=== PATIENT | female | born 1960 | race Caucasian/White ===

== ENCOUNTER 2018-02-08 14:13 | Emergency (ER) | payer OTHER, MEDICAID, SELFPAY ==
[2018-02-08 14:17] VITALS: BP 132/81; PULSE 78; RESP 15; TEMP 36; O2SAT 100; BMI 21.0
--- NOTE | 2018-02-08 17:24 | PC.NURSE ---
Pt states she was moving things in storage and injured her back. She rested for three days and thought it was getting better. States now she can barely walk without pain. States she tried Ice, Heat, and NSAIDS with no relief. said her friend is an EMT and is concerned that it is her kidney.. States no difficulty with bowels or bladder.
--- NOTE | 2018-02-08 17:44 | ED.BACK ---
HPI - Back Pain/Injury General Chief Complaint: Back Pain/Injury Stated Complaint: back pain Time Seen by Provider: 02/08/18 17:41 Related Data Home Medications Medication Instructions Recorded Confirmed albuterol sulfate [ProAir HFA] 2 puff INHALATION Q4-6H PRN 02/08/18 02/08/18 ibuprofen 200 mg PO PRN PRN 02/08/18 02/08/18 levothyroxine 1 tab PO DAILY 02/08/18 02/08/18 Allergies Allergy/AdvReac Type Severity Reaction Status Date / Time No Known Drug Allergies Allergy Verified 02/08/18 14:17 [facility] Social History Smoking Status: Current every day smoker Exam Initial Vital Signs Initial Vital Signs: Vital Signs Temperature 96.8 F L 02/08/18 14:17 Pulse Rate 78 02/08/18 14:17 Respiratory Rate 15 02/08/18 14:17 Blood Pressure 132/81 02/08/18 14:17 Pulse Oximetry 100 02/08/18 14:17 Course Vital Signs - 8 hr 02/08/18 14:17 Temperature 96.8 F L Pulse Rate 78 Respiratory Rate 15 Blood Pressure 132/81 Pulse Oximetry 100 Discharge Plan Departure Prescriptions: No Action levothyroxine 137 mcg tablet 1 tab PO DAILY RF: 0 albuterol sulfate [ProAir HFA] 90 mcg/actuation HFA aerosol inhaler 2 puff Inhalation Q4-6H PRN (Reason: Shortness Of Breath) RF: 0 ibuprofen 200 mg Tablet 200 mg PO PRN PRN (Reason: PAIN) RF: 0
== END 2018-02-08 19:10 | disposition left against medical advice (07) ==
DX: M54.9 Dorsalgia, unspecified (principal)
CPT/HCPCS: 99281; 99282

== ENCOUNTER → 2018-02-27 14:14 | Outpatient (CLI) | payer OTHER, MEDICAID, SELFPAY ==
--- NOTE | 2018-02-27 | DI.MG.S_ITS ---
BILATERAL DIGITAL SCREENING MAMMOGRAM 3D/2D WITH CAD: 02/27/2018 CLINICAL: Routine screening. Baseline exam. Family history of breast cancer. No prior exams were available for comparison. There are scattered fibroglandular elements in both breasts. Current study was also evaluated with a Computer Aided Detection (CAD) system. There is an asymmetry in the right breast posterior depth lateral region seen on the craniocaudal view only. There is architectural distortion associated with the asymmetry. No other significant masses, calcifications, or other findings are seen in either breast. IMPRESSION: INCOMPLETE: NEEDS ADDITIONAL IMAGING EVALUATION The asymmetry in the right breast is indeterminate. Additional views with possible ultrasound are recommended. This exam was interpreted at Station ID: [id number]. NOTE: For mammograms, a report in lay terms will be sent to the patient. Approximately 15% of breast malignancies will not be visualized mammographically. In the management of a palpable breast mass, a negative mammogram must not discourage biopsy of a clinically suspicious lesion. Electronically Signed By: Suzy longoria/maria dolores:02/27/2018 14:40:39 letter sent: Additional Imaging Needed ACR BI-RADS Category 0: Incomplete 3340F
== END ==
PROVIDERS: PCP Internal Medicine; Visit Provider Family Medicine
DX: Z12.31 Encounter for screening mammogram for malignant neoplasm of breast (principal); Z80.3 Family history of malignant neoplasm of breast
CPT/HCPCS: 77063; 77067

== ENCOUNTER → 2018-03-13 08:59 | Outpatient (CLI) | payer OTHER, MEDICAID, SELFPAY ==
--- NOTE | 2018-03-13 | DI.MG.S_ITS ---
UNILATERAL RIGHT DIGITAL DIAGNOSTIC MAMMOGRAM 3D/2D WITH ADDITIONAL VIEWS: 03/13/2018 CLINICAL: Additional evaluation requested from prior study. Comparison is made to exam dated: 02/27/2018 mammogram - [facility]. There are scattered fibroglandular elements in right breast. The asymmetry in the right breast posterior depth lateral region seen on the craniocaudal view only is not seen in additional views. No other significant masses or calcifications are seen in the breast. IMPRESSION: There is no mammographic evidence of malignancy. A 1 year screening mammogram is recommended. This exam was interpreted at Station ID: [id number]. NOTE: For mammograms, a report in lay terms will be sent to the patient. Approximately 15% of breast malignancies will not be visualized mammographically. In the management of a palpable breast mass, a negative mammogram must not discourage biopsy of a clinically suspicious lesion. Electronically Signed By: Suzy Richard M.D. lk/:03/13/2018 09:40:09 copy to: Tima Jenkins letter sent: Normal Exam ACR BI-RADS Category 2: Benign Finding(s) 3342F
== END ==
PROVIDERS: PCP Internal Medicine; Visit Provider Family Medicine
DX: R92.8 Other abnormal and inconclusive findings on diagnostic imaging of breast (principal)
CPT/HCPCS: 77065; G0279

== ENCOUNTER → 2018-06-14 14:03 | Outpatient (CLI) | payer OTHER, MEDICAID, SELFPAY ==
--- NOTE | 2018-06-15 16:21 | PM.PFT.1 ---
Pulmonary Function Test Referral & Results Date Patient Seen: 06/14/18 Requesting provider: Tima Jenkins Indication: R06.02 Results: The spirometry demonstrates an FVC of 2.69 L which is 85% of predicted. The FEV1 was measured at 1.69 L which is 60% of predicted. The FEV1/FVC ratio was 63 which is 79% of predicted. Following the administration of bronchodilator there was no appreciable change. Lung volumes show an SVC of 2.77 L which is 94% of predicted. The diffusing capacity was measured at 17.49 which is 81% of predicted. No hemoglobin value was provided, so no correction for potential anemia could be made, if appropriate. The maximum voluntary ventilation was reduced Interpretation: This study demonstrates mild to moderate obstructive lung disease without evidence of benefit following bronchodilator There is also minimal reduction in diffusing capacity, suggesting an element of disease at the capillary alveolar level, unless patient is anemic Clinical correlation suggested
== END ==
PROVIDERS: PCP Internal Medicine; Visit Provider Internal Medicine
DX: R06.02 Shortness of breath (principal)
CPT/HCPCS: 94060; 94726; 94729

== ENCOUNTER → 2018-07-26 10:38 | Outpatient (CLI) | payer OTHER, MEDICAID, SELFPAY ==
[2018-07-26 12:31] LABS: Free T4, Direct Thyroxine 1.85 ng/dL (0.78-2.19)
[2018-07-26 12:46] LABS: Thyroid Stimulating Hormone 0.18 uIU/mL (0.47-4.68)
[2018-07-28 16:10] LABS: Triiodothyronine T3 Total 99 ng/dL (76-181)
== END ==
PROVIDERS: PCP Internal Medicine; Visit Provider Internal Medicine
DX: E03.9 Hypothyroidism, unspecified (principal)
CPT/HCPCS: 36415; 84439; 84443; 84480

== ENCOUNTER → 2019-01-10 12:04 | Outpatient (CLI) | payer OTHER, MEDICAID, SELFPAY ==
[2019-01-10 14:04] LABS: Thyroid Stimulating Hormone 2.73 uIU/mL (0.47-4.68)
[2019-01-12 15:52] LABS: Triiodothyronine T3 Total 82 ng/dL (76-181)
== END ==
PROVIDERS: PCP Internal Medicine; Visit Provider Internal Medicine
DX: E03.9 Hypothyroidism, unspecified (principal)
CPT/HCPCS: 36415; 84439; 84443; 84480

== ENCOUNTER → 2019-06-06 11:20 | Outpatient (CLI) | payer OTHER, MEDICAID, SELFPAY ==
--- NOTE | 2019-06-06 | DI.MG.S_ITS ---
BILATERAL DIGITAL SCREENING MAMMOGRAM 3D/2D WITH CAD: 06/06/2019 CLINICAL: Routine screening. Family history of breast cancer. Comparison is made to exams dated: 03/13/2018 mammogram and 02/27/2018 mammogram - [facility]. There are scattered fibroglandular elements in both breasts. Current study was also evaluated with a Computer Aided Detection (CAD) system. No significant masses, calcifications, or other findings are seen in either breast. There has been no significant interval change. IMPRESSION: NEGATIVE There is no mammographic evidence of malignancy. A 1 year screening mammogram is recommended. This exam was interpreted at Station ID: [id number]. NOTE: For mammograms, a report in lay terms will be sent to the patient. Approximately 15% of breast malignancies will not be visualized mammographically. In the management of a palpable breast mass, a negative mammogram must not discourage biopsy of a clinically suspicious lesion. Electronically Signed By: Jonathon claros/maria dolores:06/07/2019 10:58:44 copy to: Tima Jenkins letter sent: Normal Exam ACR BI-RADS Category 1: Negative 3341F
== END ==
PROVIDERS: PCP Internal Medicine; Visit Provider Internal Medicine
DX: Z12.31 Encounter for screening mammogram for malignant neoplasm of breast (principal); Z80.3 Family history of malignant neoplasm of breast; I10 Essential (primary) hypertension; E03.9 Hypothyroidism, unspecified
CPT/HCPCS: 36415; 77063; 77067; 80053; 80061; 84439; 84443; 84480

== ENCOUNTER → 2019-06-06 11:50 | Outpatient (CLI) | payer OTHER, MEDICAID, SELFPAY ==
[2019-06-06 13:38] LABS: Alanine Aminotransferase 16 IU/L (<35); Albumin 4.3 g/dL (3.5-5.0); Albumin Globulin Ratio 1.4 (1.0-2.8); Alkaline Phosphatase 30 U/L (38-126); Aspartate Aminotransferase 23 IU/L (14-36); BUN Creatinine Ratio 22.2 (6-22); Bilirubin Total 0.5 mg/dL (0.2-1.3); Blood Urea Nitrogen 20 mg/dL (7-17); Calcium 9.4 mg/dL (8.4-10.2); Carbon Dioxide 31 mmol/L (22-32); Chloride 102 mmol/L (98-107); Cholesterol 201 mg/dL (140-199); Estimated Glomerular Filt Rate > 60.0 mL/min (>60); Glucose 90 mg/dL (70-100); HDL Cholesterol 75 mg/dL (40-60); HEMOLYSIS < 15 (0-50); LDL Cholesterol Calculated 111 mg/dL (<100); Potassium 5.1 mmol/L (3.4-5.1); Sodium 138 mmol/L (137-145); Total Protein 7.3 g/dL (6.3-8.2); Triglycerides 77 mg/dL (35-150)
[2019-06-06 13:49] LABS: Free T4, Direct Thyroxine 1.42 ng/dL (0.78-2.19)
[2019-06-06 14:03] LABS: Thyroid Stimulating Hormone 9.89 uIU/mL (0.47-4.68)
[2019-06-07 11:32] LABS: Triiodothyronine T3 Total 59 ng/dL (76-181)
== END ==
PROVIDERS: PCP Internal Medicine; Visit Provider Internal Medicine
DX: Z12.31 Encounter for screening mammogram for malignant neoplasm of breast (principal); Z80.3 Family history of malignant neoplasm of breast; I10 Essential (primary) hypertension; E03.9 Hypothyroidism, unspecified
CPT/HCPCS: 36415; 80053; 80061; 84439; 84443; 84480

== ENCOUNTER → 2019-07-18 09:28 | Outpatient (CLI) | payer OTHER, MEDICAID, SELFPAY ==
--- NOTE | 2019-07-18 | DI.US.S_ITS ---
PROCEDURE: US THYROID INDICATIONS: HISTORY OF GOITER TECHNIQUE: Real-time scanning was performed of the thyroid gland, with image documentation. COMPARISON: None. FINDINGS: Right: Atrophy on the right, no nodule found, diminutive right thyroid lobe. Left: Atrophy on the left, no nodule found, diminutive right thyroid lobe. Isthmus: Diminutive IMPRESSION: No goiter as enlargement foun. Rather, the thyroid gland bilaterally is prominently atrophic, diminutive. No nodule present. Dictated by: Alonso Wang M.D. on 07/18/2019 at 16:34 Approved by: Alonso Wang M.D. on 07/18/2019 at 16:35
[2019-07-18 10:53] LABS: Alanine Aminotransferase 18 IU/L (<35); Albumin 4.3 g/dL (3.5-5.0); Albumin Globulin Ratio 1.4 (1.0-2.8); Alkaline Phosphatase 34 U/L (38-126); Aspartate Aminotransferase 24 IU/L (14-36); BUN Creatinine Ratio 23.8 (6-22); Bilirubin Total 0.2 mg/dL (0.2-1.3); Blood Urea Nitrogen 19 mg/dL (7-17); Calcium 9.3 mg/dL (8.4-10.2); Carbon Dioxide 28 mmol/L (22-32); Chloride 99 mmol/L (98-107); Estimated Glomerular Filt Rate > 60.0 mL/min (>60); Glucose 122 mg/dL (70-100); HEMOLYSIS < 15 (0-50); Sodium 136 mmol/L (137-145); Total Protein 7.3 g/dL (6.3-8.2)
[2019-07-18 11:00] LABS: Free T4, Direct Thyroxine 1.74 ng/dL (0.78-2.19)
[2019-07-18 11:14] LABS: Thyroid Stimulating Hormone 2.33 uIU/mL (0.47-4.68)
[2019-07-20 14:35] LABS: Triiodothyronine T3 Total 86 ng/dL (76-181)
== END ==
PROVIDERS: PCP Internal Medicine; Referring Provider Internal Medicine; Visit Provider Internal Medicine
DX: E04.2 Nontoxic multinodular goiter (principal); E03.9 Hypothyroidism, unspecified
CPT/HCPCS: 36415; 76536; 80053; 84439; 84443; 84480

== ENCOUNTER → 2019-07-27 14:32 | Outpatient (CLI) | payer OTHER, MEDICAID, SELFPAY ==
--- NOTE | 2019-07-27 16:02 | PM.TREADMILL ---
Cardiac Stress Test Report Referral & Results Date Patient Seen: 07/27/19 Time Patient Seen: 16:02 Requesting provider: Tima Jenkins Indication: shortness of breath Rest ECG: normal sinus rhythm Procedure Note: Standard Federico protocol, 7:13, 7.2 METS Good exercise capacity, MARY ANN -1% Normal hemodynamic response to exercise No chest pain or anginal symptoms Non specific ST changes to exercise; no ectopy Impression: Nonconclusive exersice stress test Please note: Actual ECG tracings can be found in the PACS system.
[2019-07-27 17:52] LABS: Hemoglobin A1C% w Est Avg Glu 5.6 % (4.0-6.0)
== END ==
PROVIDERS: PCP Internal Medicine; Referring Provider Internal Medicine; Visit Provider Internal Medicine
DX: R06.02 Shortness of breath (principal); R73.9 Hyperglycemia, unspecified
CPT/HCPCS: 36415; 83036; 93017

== ENCOUNTER → 2019-07-31 17:03 | Outpatient (ROUT) | payer OTHER, MEDICAID, SELFPAY ==
[2019-08-06 15:27] LABS: COVID19 Sendout Not Detected (Not Detected)
== END ==
PROVIDERS: PCP Internal Medicine; Visit Provider Internal Medicine
DX: R05 Cough (principal); R50.9 Fever, unspecified
CPT/HCPCS: 87635

== ENCOUNTER → 2019-10-16 14:33 | Outpatient (CLI) | payer OTHER, MEDICAID, SELFPAY ==
[2019-10-16 15:52] LABS: Alanine Aminotransferase 17 IU/L (<35); Albumin Globulin Ratio 1.4 (1.0-2.8); Alkaline Phosphatase 32 U/L (38-126); Aspartate Aminotransferase 33 IU/L (14-36); BUN Creatinine Ratio 37.2 (6-22); Bilirubin Total 0.4 mg/dL (0.2-1.3); Blood Urea Nitrogen 29 mg/dL (7-17); Carbon Dioxide 29 mmol/L (22-32); Chloride 104 mmol/L (98-107); Estimated Glomerular Filt Rate > 60.0 mL/min (>60); Globulin 2.8 g/dL (1.7-4.1); Glucose 90 mg/dL (70-100); HEMOLYSIS < 15 (0-50); Sodium 141 mmol/L (137-145); Total Protein 6.8 g/dL (6.3-8.2)
[2019-10-16 16:54] LABS: Free T4, Direct Thyroxine 1.65 ng/dL (0.78-2.19)
[2019-10-16 17:08] LABS: Thyroid Stimulating Hormone 0.41 uIU/mL (0.47-4.68)
[2019-10-18 16:14] LABS: Triiodothyronine T3 Total 80 ng/dL (71-180)
== END ==
PROVIDERS: PCP Internal Medicine; Referring Provider Internal Medicine; Visit Provider Internal Medicine
DX: E03.9 Hypothyroidism, unspecified (principal); I10 Essential (primary) hypertension
CPT/HCPCS: 36415; 80053; 84439; 84443; 84480

== ENCOUNTER → 2020-03-09 13:30 | Outpatient (CLI) | payer OTHER, MEDICAID, SELFPAY ==
[2020-03-10 11:10] LABS: COVID19 -Nasal RAPID Negative (Negative)
== END ==
PROVIDERS: PCP Internal Medicine; Visit Provider Physician Assistant
DX: Z11.59 Encounter for screening for other viral diseases (principal)
CPT/HCPCS: 87635

== ENCOUNTER 2020-03-12 08:59 | Day surgery (SDC) | payer OTHER, MEDICAID, SELFPAY ==
[2020-03-12] VITALS (11 sets, daily range): BP systolic 91–142; BP diastolic 54–84; PULSE 73–89; RESP 11–26; TEMP 36.8–37.2; O2SAT 95–99; BMI 20.4
--- NOTE | 2020-03-12 | PATH_ITS ---
[facility] Accession Number: [id number] . 01 Material submitted: . PART A: colon - DESCENDING COLON POLYP PART B: colon - SIGMOID POLYPS . 01 Clinical history: . SCREENING COLONOSCOPY . 02 Diagnosis: A. Descending Colon, Polyp: Colonic mucosa with focal mucosal hyperplasia. Negative for dysplasia or malignancy. Additional step-sections examined. . B. Sigmoid Colon, Polyps: Hyperplastic polyp x2. BFI 03/18/2020 1229 Local . 02 Electronically signed: . Luis Squires MD, PhD, Pathologist NPI- [id number] . 01 Gross description: . A. Received in formalin, labeled descending colon polyp, and consists of a 1.0 x 0.3 x 0.3 cm araiza fragment of soft tissue, which is entirely submitted in cassette A1. B. Received in formalin, labeled sigmoid polyps, and consists of two araiza fragments of soft tissue measuring 1.0 x 0.6 x 0.3 cm in aggregate. The specimen is entirely submitted in cassette B1. ([id number]) /MRV 03/13/2020 1501 Local . 02 Pathologist provided ICD-10: K63.5 . 02 CPT . 643124, 269143 Performed at: 01 [facility] [address], [place], [place] [id number] MD Jj Kathleen MD Phone: [phone] Performed at: 02 [facility] [address] [place], [place] [id number] MD Sarah Price MD Phone: [phone]
[2020-03-12] MEDS: SODIUM CHLORIDE 0.9% 1,000 ML 70 ML IV (09:32)
--- NOTE | 2020-03-12 09:46 | PM.HP.1 ---
History of Present Illness History of Present Illness Date Patient Seen: 03/12/20 Time Patient Seen: 09:46 Chief complaint: SCREENING COLONOSCOPY Narrative: Patient is a very pleasant 59-year-old female who presented for colonoscopy. She does have a known family history of colon cancer diagnosed in her sister last 60 years old. Patient History Medical History Acquired hypothyroidism (Acute ~1989) Allergic rhinitis (Acute ~1969) COPD (chronic obstructive pulmonary disease) (Chronic) Essential hypertension (Acute ~2009) Surgical History S/P carpal tunnel release (Acute ~2011) S/P cholecystectomy (Acute ~2004) S/P hysterectomy (Acute ~2006) Family & Social History Family History Father Hypertension Brother Cancer Sister Colon cancer Social History: household members spouse Tobacco & Substance use: Smoking Status Current every day smoker alcohol intake frequency holiday/special occasion Substance Use Type does not use Meds Home Medications and Allergies Home Medications Medication Instructions Recorded Confirmed Type albuterol sulfate 2.5 mg INHALATION Q6-8H ml 02/07/20 03/12/20 History albuterol sulfate 90 mcg/actuation 2 puff INHALATION .PRN PRN gram 02/07/20 03/12/20 History aerosol inhaler levothyroxine 112 mcg tablet 112 mcg PO DAILY tab 02/07/20 03/12/20 History olmesartan [Benicar] 10 mg PO DAILY 03/12/20 03/12/20 History Allergies Allergy/AdvReac Type Severity Reaction Status Date / Time No Known Drug Allergies Allergy Verified 03/12/20 09:13 Review of Systems Review of Systems ROS: Yes All systems reviewed with the patient and are negative except as otherwise documented Exam Vital Signs (past 8 hours): - 03/12/20 09:25 Temperature 99.0 F Pulse Rate 89 Respiratory Rate 16 Blood Pressure 142/84 H Pulse Oximetry 99 Oxygen Delivery Method Room Air Const General: cooperative, healthy appearing, comfortable, well developed and well groomed Nutritional Appearance: average body habitus Orientation: alert, awake and oriented x3 HENMT Head: normocephalic and atraumatic Resp Effort & Inspection: normal respiratory effort and able to speak in complete sentences Auscultation: clear to auscultation bilaterally Cardio Rate: regular rate Rhythm: regular rhythm Heart Sounds: S1 normal and S2 normal GI Palpation: soft Auscultation: normal bowel sounds Extrem Right lower extremity: no edema Left lower extremity: no edema
[2020-03-12] MEDS: MIDAZOLAM 5 MG/5 ML VIAL IV (10:05)
[2020-03-12] MEDS: fentaNYL 250 MCG/5 ML INJ IV (10:05)
--- NOTE | 2020-03-12 10:28 | P.OP.ENDO_ITS ---
Operative Date/Time/Diagnoses Date of procedure: 03/12/20 Time of procedure: 09:50 Procedure Notes Procedure in detail: Surgeon: Anitha Penny DO Procedure: Colonoscopy with polypectomy Preoperative diagnosis: 1. Family history colon cancer, sister less than 60 years old 2. Diverticulosis 3. Internal hemorrhoids Postoperative diagnosis: -descending colon polyp, 5 mm removed with cold snare -sigmoid colon polyp, 6 mm removed with cold snare -sigmoid and descending colon diverticulosis -grade 1-2 internal hemorrhoids Medications: Conscious sedation using 7 mg IV of Midazolam and 175 mcg IV of Fentanyl Preanesthesia Assessment An H and P was performed/updated and the Px?s ASA class is 2. The procedure was discussed in detail with the patient. The potential risks and complications including infection, bleeding, missed lesions, perforation, need for surgery in case of perforation, prolonged hospital stay, and were explained. A brief question and answer period was allotted and once all questions were answered, informed consent was obtained. The patient was brought back to the procedure room and placed on standard monitoring. The patient?s vital signs were monitored continuously throughout the entire procedure. Prior to starting, a timeout was performed to confirm the patient?s identity, allergies, medications, and procedure. Procedure in detail The patient was placed in left lateral decubitus position and once adequate sedation was obtained a HARRIET was performed. The digital rectal examination did not reveal any palpable lesions. The tip of the colonoscope was placed in the anal canal and advanced without some difficulty through the sigmoid colon due to stenotic diverticular disease, the scope was advanced all the way to the cecum which was identified by the appendiceal orifice and the ileocecal valve. Carefu l examination of all neves of the colon was performed with irrigation of any residual stool. The patient tolerated the procedure well and will be brought back to the recovery area to be discharged once criteria are met. The prep was judged to be good/excellent and adequate to identify polyps less than 5 mm. The withdrawal time was 12min. The total physician intraservice time was 30min. Complications There were no complications and estimated blood loss was minimal. Recommendations: High-fiber diet Continue outPx medications Follow up pathology results Repeat colonoscopy after pathology results are reviewed An emergency contact number was given to the patient for any complications related to the procedure
--- NOTE | 2020-03-12 11:26 | SUR.PHASEII ---
Patient discharged in stable condition with . All belongings returned and discharge instructions reviewed by nurse.
== END 2020-03-12 11:27 | disposition home or self-care (01) ==
PROVIDERS: PCP Internal Medicine; Referring Provider Student in an Organized Health Care Education/Training Program; Visit Provider Student in an Organized Health Care Education/Training Program
PROC: 0DJD8ZZ Inspection of Lower Intestinal Tract, Via Natural or Artificial Opening Endoscopic (ICD-10-PCS; CPT 45378; principal; 2020-03-12 10:00)
DX: Z12.11 Encounter for screening for malignant neoplasm of colon (principal); Z80.0 Family history of malignant neoplasm of digestive organs; K57.30 Diverticulosis of large intestine without perforation or abscess without bleeding; K64.0 First degree hemorrhoids; J45.909 Unspecified asthma, uncomplicated; E03.9 Hypothyroidism, unspecified; I10 Essential (primary) hypertension; K63.5 Polyp of colon
CPT/HCPCS: 45385; J2250; J3010

== ENCOUNTER → 2020-04-28 11:37 | Outpatient (CLI) | payer OTHER, MEDICAID, SELFPAY ==
[2020-04-28 13:51] LABS: BUN Creatinine Ratio 26.4 (6-22); Blood Urea Nitrogen 23 mg/dL (7-17); Calcium 9.6 mg/dL (8.4-10.2); Carbon Dioxide 34 mmol/L (22-32); Chloride 99 mmol/L (98-107); Estimated Glomerular Filt Rate > 60.0 mL/min (>60); Glucose 106 mg/dL (70-100); HEMOLYSIS < 15 (0-50); Potassium 4.9 mmol/L (3.4-5.1); Sodium 136 mmol/L (137-145)
[2020-04-28 14:08] LABS: Free T4, Direct Thyroxine 1.46 ng/dL (0.78-2.19)
[2020-04-28 14:22] LABS: Thyroid Stimulating Hormone 4.01 uIU/mL (0.47-4.68)
== END ==
PROVIDERS: PCP Internal Medicine; Referring Provider Internal Medicine; Visit Provider Internal Medicine
DX: E03.9 Hypothyroidism, unspecified (principal); I10 Essential (primary) hypertension
CPT/HCPCS: 36415; 80048; 84439; 84443

== ENCOUNTER → 2020-06-09 08:03 | Outpatient (CLI) | payer OTHER, MEDICAID, SELFPAY ==
--- NOTE | 2020-06-09 08:06 | DI.MG.S_ITS ---
BILATERAL DIGITAL SCREENING MAMMOGRAM 3D/2D WITH CAD: 06/09/2020 CLINICAL: Routine screening. Family history of breast cancer. Comparison is made to exams dated: 06/06/2019 mammogram and 02/27/2018 mammogram - [facility]. There are scattered fibroglandular elements in both breasts. Current study was also evaluated with a Computer Aided Detection (CAD) system. No significant masses, calcifications, or other findings are seen in either breast. There has been no significant interval change. IMPRESSION: NEGATIVE There is no mammographic evidence of malignancy. A 1 year screening mammogram is recommended. This exam was interpreted at Station ID: [id number]. NOTE: For mammograms, a report in lay terms will be sent to the patient. Approximately 15% of breast malignancies will not be visualized mammographically. In the management of a palpable breast mass, a negative mammogram must not discourage biopsy of a clinically suspicious lesion. Electronically Signed By: Declan celaya/maria dolores:06/09/2020 08:43:38 letter sent: Normal Exam ACR BI-RADS Category 1: Negative 3341F
== END ==
PROVIDERS: PCP Internal Medicine; Referring Provider Internal Medicine; Visit Provider Internal Medicine
DX: Z12.31 Encounter for screening mammogram for malignant neoplasm of breast (principal); Z80.3 Family history of malignant neoplasm of breast
CPT/HCPCS: 77063; 77067

== ENCOUNTER → 2020-07-09 12:43 | Outpatient (CLI) | payer OTHER, MEDICAID, SELFPAY ==
--- NOTE | 2020-07-09 12:47 | DI.RAD.S_ITS ---
PROCEDURE: XR ELBOW RT 2V INDICATIONS: RIGHT ELBOW PAIN TECHNIQUE: 3 views of the elbow were acquired. COMPARISON: None. FINDINGS: Bones: No fractures or dislocations. No suspicious bony lesions. Scattered degenerative subchondral sclerosis and spurring. Soft tissues: No elbow joint effusion. No suspicious soft tissue calcifications. IMPRESSION: Mild degenerative changes. If the patient's pain or other symptoms persist, consider further evaluation with MRI Dictated by: Ck Beard M.D. on 07/09/2020 at 14:06 Approved by: Ck Beard M.D. on 07/09/2020 at 14:18
[2020-07-17 14:20] LABS: SARS CoV19 IgG Negative
== END ==
PROVIDERS: PCP Physician Assistant; Referring Provider Physician Assistant; Visit Provider Physician Assistant
DX: M25.521 Pain in right elbow (principal); Z20.822 Contact with and (suspected) exposure to COVID-19
CPT/HCPCS: 36415; 73070; 86769

== ENCOUNTER → 2020-09-17 14:05 | Outpatient (CLI) | payer OTHER, MEDICAID, SELFPAY ==
[2020-09-17 14:48] LABS: Add Manual Diff / Slide Review NO; Basophils Absolute Auto 100 /uL (0-100); Basophils Percent Auto 1.7 % (0-2); Eosinophils Absolute Auto 100 /uL (0-450); Eosinophils Percent Auto 1.9 % (2-4); Hematocrit 40.5 % (36-46); Hemoglobin 13.4 g/dL (12.0-16.0); Lymphocytes Absolute Auto 1800 /uL (1100-4500); Lymphocytes Percent Auto 31.7 % (25-40); Mean Corpuscular HGB Conc 33.1 % (30-36); Mean Corpuscular Hemoglobin 29.8 PG (26-34); Monocytes Absolute Auto 300 /uL (0-900); Neutrophils Absolute Auto 3300 /uL (1500-7000); Neutrophils Percent Auto 58.7 % (50-75); Platelet Count 235 X10^3/uL (150-400); Red Cell Distribution Width 13.2 % (11.6-14.8); White Blood Cell Count 5.6 X10^3/uL (4.5-11.0)
[2020-09-17 15:01] LABS: Hemoglobin A1C% w Est Avg Glu 5.6 % (4.0-6.0)
[2020-09-17 16:13] LABS: Alanine Aminotransferase 20 IU/L (<35); Albumin 4.2 g/dL (3.5-5.0); Albumin Globulin Ratio 1.6 (1.0-2.8); Alkaline Phosphatase 33 U/L (38-126); Aspartate Aminotransferase 25 IU/L (14-36); BUN Creatinine Ratio 29.2 (6-22); Bilirubin Total 0.3 mg/dL (0.2-1.3); Blood Urea Nitrogen 26 mg/dL (7-17); Calcium 9.6 mg/dL (8.4-10.2); Carbon Dioxide 30 mmol/L (22-32); Chloride 101 mmol/L (98-107); Estimated Glomerular Filt Rate > 60.0 mL/min (>60); Globulin 2.7 g/dL (1.7-4.1); Glucose 98 mg/dL (70-100); HEMOLYSIS < 15 (0-50); Potassium 5.1 mmol/L (3.4-5.1); Sodium 138 mmol/L (137-145); Total Protein 6.9 g/dL (6.3-8.2)
[2020-09-17 17:22] LABS: TSH w/ Reflex to FT4 4.77 uIU/mL (0.47-4.68)
[2020-09-17 17:51] LABS: Free T4, Direct Thyroxine 1.67 ng/dL (0.78-2.19)
== END ==
PROVIDERS: PCP Physician Assistant; Referring Provider Physician Assistant; Visit Provider Physician Assistant
DX: I10 Essential (primary) hypertension (principal); E03.9 Hypothyroidism, unspecified; R73.9 Hyperglycemia, unspecified
CPT/HCPCS: 36415; 80053; 83036; 84439; 84443; 85025

== ENCOUNTER → 2020-09-29 12:54 | Outpatient (CLI) | payer OTHER, MEDICAID, SELFPAY ==
--- NOTE | 2020-09-29 12:58 | DI.RAD.S_ITS ---
PROCEDURE: XR LUMBAR SPINE 2-3V INDICATIONS: LBP TECHNIQUE: 3 views of the lumbar spine were acquired. COMPARISON: None. FINDINGS: Bones: There is transitional anatomy with 6 lumbar type [id number] vertebral bodies and non-rudimentary S1-S2 disc. For purposes of this dictation the 6 lumbar type [id number]-[id number] vertebral bodies will be designated L1 through S1 with the last non-rudimentary disc designated S1-S2. There is normal bony alignment. No vertebral body compression fractures. No suspicious bony lesions. Mild degenerative disc changes noted throughout the lumbar spine. Moderate L5-S1 and S1-S2 facet arthropathy. Mild L4-L5 facet arthropathy. Soft tissues: Overlying bowel gas pattern is normal. No suspicious soft tissue calcifications. IMPRESSION: 1. Multilevel degenerative disc disease. 2. Multilevel facet arthropathy. 3. No fracture. No acute osseous lesion. If symptoms and/or clinical suspicion for pathology persists, evaluation with MRI should be considered for further assessment. 4. Transitional anatomy with 6 lumbar type [id number] vertebral bodies and non-rudimentary S1-S2 disc. Dictated by: Negra Palacio MD, PhD on 09/29/2020 at 17:24 Approved by: Negra Palacio MD, PhD on 09/29/2020 at 17:26
== END ==
PROVIDERS: PCP Physician Assistant; Referring Provider Physician Assistant; Visit Provider Physician Assistant
DX: M54.5 Low back pain (principal); M51.36 Other intervertebral disc degeneration, lumbar region; M47.816 Spondylosis without myelopathy or radiculopathy, lumbar region; M47.817 Spondylosis without myelopathy or radiculopathy, lumbosacral region
CPT/HCPCS: 72100

== ENCOUNTER → 2020-10-23 17:19 | Outpatient (CLI) | payer OTHER, MEDICAID, SELFPAY ==
[2020-10-23 18:25] LABS: C-Reactive Protein Quant < 0.5 mg/dL (<1.0)
[2020-10-23 18:52] LABS: Erythrocyte Sedimentation Rate 4 MM/HR (0-20)
[2020-10-23 18:53] LABS: TSH w/ Reflex to FT4 2.68 uIU/mL (0.47-4.68)
[2020-10-25 14:07] LABS: ANA Screen, IFA Negative (.)
== END ==
PROVIDERS: PCP Physician Assistant; Referring Provider Physician Assistant; Visit Provider Physician Assistant
DX: E09.9 Drug or chemical induced diabetes mellitus without complications (principal); M25.50 Pain in unspecified joint; M25.80 Other specified joint disorders, unspecified joint
CPT/HCPCS: 36415; 84443; 85651; 86038; 86140

== ENCOUNTER → 2021-03-13 08:57 | Outpatient (CLI) | payer OTHER, MEDICAID, SELFPAY ==
--- NOTE | 2021-03-13 | DI.CT.S_ITS ---
This report includes an Addendum and supersedes previous reports for this exam. PROCEDURE: CT CHEST ABD PEL W CON INDICATIONS: ABDOMINAL PAIN TECHNIQUE: After the administration of oral and intravenous contrast, axial sections acquired from the supraclavicular neck to the pubic symphysis. Coronal and sagittal reformats were performed. For radiation dose reduction, the following was used: automated exposure control, adjustment of mA and/or kV according to patient size. COMPARISON: None. FINDINGS: Image quality: Excellent. CHEST: Lower Neck: No enlarged lymph nodes. Thyroid: Within normal limits. Axillae: No enlarged lymph nodes. Chest Wall: Unremarkable. Lungs and Airways: No consolidation or suspicious nodules. Mild biapical predominant emphysema. Subpleural nodule within the right middle lobe lateral segment posterosuperior Shira measuring 2 mm. 2 mm nodule within the right upper lobe anterolaterally. 2 mm nodule within the lingula laterally. Pleura: No pneumothorax or pleural effusions. Heart: Heart size is normal. No pericardial effusion. Thoracic Vessels: The aorta and pulmonary arteries demonstrate normal size. Mediastinum and Margo: No enlarged lymph nodes. Esophagus: No wall thickening. No hiatal hernia. ABDOMEN: Liver: Unremarkable. Gallbladder: Is surgically absent Biliary ducts: Unremarkable. Pancreas: Unremarkable. Spleen: Unremarkable. Adrenal Glands: Unremarkable. Kidneys and Ureters: Unremarkable. Stomach and Bowel: Stomach, small bowel loops, and colon are unremarkable. Normal appendix. Peritoneum: No abnormal intraperitoneal fluid. No free air. Ventral Wall: No hernia. Abdominal Nodes: No retroperitoneal or mesenteric adenopathy by size criteria. Vessels: Aorta and inferior vena cava are normal in size. PELVIS: Pelvic Organs: Unremarkable. Bladder: Unremarkable. Pelvic Nodes: No enlarged lymph nodes. Miscellaneous: No inguinal hernias are seen. Bones: Unremarkable. IMPRESSION: 1. Small bilateral pulmonary nodules. Follow-up is recommended as below. 2. No acute process. 3. Normal appendix. Dictated by: Eric Wynne M.D. on 03/13/2021 at 14:07 Approved by: Eric Wynne M.D. on 03/13/2021 at 14:10 ADDENDUM: The study was reviewed with Sara Newby PA-C with attention to the pelvis. No pelvic mass is identified. Dictated by: Jj Hoyt M.D. on 03/20/2021 at 12:47 Approved by: Jj Hoyt M.D. on 03/20/2021 at 13:16
== END ==
PROVIDERS: PCP Physician Assistant; Referring Provider Physician Assistant; Visit Provider Physician Assistant
DX: R10.30 Lower abdominal pain, unspecified (principal); R63.4 Abnormal weight loss; R05.3 Chronic cough; R91.8 Other nonspecific abnormal finding of lung field; Z90.49 Acquired absence of other specified parts of digestive tract
CPT/HCPCS: 71260; 74177

== ENCOUNTER → 2021-03-16 15:43 | Outpatient (CLI) | payer OTHER, MEDICAID, SELFPAY ==
[2021-03-16 16:42] LABS: Add Manual Diff / Slide Review NO; Basophils Absolute Auto 100 /uL (0-100); Basophils Percent Auto 1.6 % (0-2); Eosinophils Absolute Auto 100 /uL (0-450); Eosinophils Percent Auto 2.3 % (2-4); Hematocrit 39.3 % (36-46); Hemoglobin 13.3 g/dL (12.0-16.0); Lymphocytes Absolute Auto 1500 /uL (1100-4500); Lymphocytes Percent Auto 28.9 % (25-40); Mean Corpuscular HGB Conc 33.8 % (30-36); Mean Corpuscular Hemoglobin 29.5 PG (26-34); Mean Corpuscular Volume 87.5 fL (80-100); Monocytes Absolute Auto 300 /uL (0-900); Monocytes Percent Auto 5.8 % (3-14); Neutrophils Absolute Auto 3200 /uL (1500-7000); Neutrophils Percent Auto 61.4 % (50-75); Platelet Count 236 X10^3/uL (150-400); Red Blood Cell Count 4.49 X10^6/uL (4.0-5.2); Red Cell Distribution Width 13.3 % (11.6-14.8); White Blood Cell Count 5.2 X10^3/uL (4.5-11.0)
[2021-03-16 17:25] LABS: Alanine Aminotransferase 26 IU/L (<35); Albumin 4.2 g/dL (3.5-5.0); Albumin Globulin Ratio 1.4 (1.0-2.8); Alkaline Phosphatase 35 U/L (38-126); Aspartate Aminotransferase 30 IU/L (14-36); Bilirubin Total 0.2 mg/dL (0.2-1.3); Blood Urea Nitrogen 27 mg/dL (7-17); Calcium 9.4 mg/dL (8.4-10.2); Carbon Dioxide 32 mmol/L (22-32); Chloride 104 mmol/L (98-107); Estimated Glomerular Filt Rate > 60.0 mL/min (>60); Globulin 2.9 g/dL (1.7-4.1); Glucose 98 mg/dL (70-100); HEMOLYSIS < 15 (0-50); Potassium 4.4 mmol/L (3.4-5.1); Sodium 142 mmol/L (137-145); Total Protein 7.1 g/dL (6.3-8.2)
[2021-03-16 18:54] LABS: Free T4, Direct Thyroxine 1.51 ng/dL (0.78-2.19)
== END ==
PROVIDERS: PCP Physician Assistant; Referring Provider Physician Assistant; Visit Provider Physician Assistant
DX: R63.4 Abnormal weight loss (principal); E03.9 Hypothyroidism, unspecified
CPT/HCPCS: 36415; 80053; 84439; 84443; 85025

== ENCOUNTER → 2021-03-24 10:30 | Outpatient (CLI) | payer OTHER, MEDICAID, SELFPAY ==
--- NOTE | 2021-03-24 | DI.US.S_ITS ---
PROCEDURE: US PELVIC COMPLETE INDICATIONS: LEFT LOWER QUADRANT PAIN TECHNIQUE: Real-time scanning was performed of the pelvic organs, with image documentation. Additional endovaginal scanning was necessary due to incomplete visualization of the adnexal and endometrial structures by transabdominal scanning. COMPARISON: [facility], CT, CT CHEST ABD PEL W CON, 03/13/2021, 9:51. FINDINGS: Uterus: Surgically absent Ovaries: Left ovary not identified, and apparently surgically removed according to the patient. Right ovary measures 1.9 x 1.4 x 1.0 cm. Other: No pathologic free abdominal or pelvic fluid. Imaging of the left lower quadrant demonstrated peristalsing bowel. No obvious lesions identified. IMPRESSION: Remote hysterectomy. Pelvic ultrasound otherwise unremarkable. No! Left lower quadrant pain. Dictated by: Miguelangel Dailey M.D. on 03/24/2021 at 13:57 Approved by: Miguelangel Dailey M.D. on 03/24/2021 at 13:59
== END ==
PROVIDERS: PCP Physician Assistant; Referring Provider Physician Assistant; Visit Provider Physician Assistant
DX: R10.32 Left lower quadrant pain (principal); Z90.710 Acquired absence of both cervix and uterus
CPT/HCPCS: 76830; 76856

== ENCOUNTER → 2021-07-22 11:02 | Outpatient (CLI) | payer OTHER, MEDICAID, SELFPAY ==
--- NOTE | 2021-07-22 | DI.MG.S_ITS ---
BILATERAL DIGITAL SCREENING MAMMOGRAM 3D/2D WITH CAD: 07/22/2021 CLINICAL: Routine screening. Family history of breast cancer. Comparison is made to exams dated: 06/09/2020 mammogram, 06/06/2019 mammogram, 03/13/2018 mammogram, and 02/27/2018 mammogram - [facility]. There are scattered fibroglandular elements in both breasts. Current study was also evaluated with a Computer Aided Detection (CAD) system. No significant masses, calcifications, or other findings are seen in either breast. There has been no significant interval change. IMPRESSION: NEGATIVE There is no mammographic evidence of malignancy. A 1 year screening mammogram is recommended. This exam was interpreted at Station ID: [id number]. NOTE: For mammograms, a report in lay terms will be sent to the patient. Approximately 15% of breast malignancies will not be visualized mammographically. In the management of a palpable breast mass, a negative mammogram must not discourage biopsy of a clinically suspicious lesion. Electronically Signed By: Saba pereira/maria dolores:07/22/2021 12:41:37 letter sent: Normal Exam ACR BI-RADS Category 1: Negative 3341F
== END ==
PROVIDERS: PCP Internal Medicine; Referring Provider Internal Medicine; Visit Provider Internal Medicine
DX: Z12.31 Encounter for screening mammogram for malignant neoplasm of breast (principal); Z80.3 Family history of malignant neoplasm of breast
CPT/HCPCS: 77063; 77067

== ENCOUNTER 2021-11-11 14:52 | Emergency (ER) | payer OTHER, MEDICAID, SELFPAY ==
[2021-11-11 15:05] VITALS: BP 160/91; PULSE 87; RESP 18; TEMP 36.5; O2SAT 97; BMI 21.2
--- NOTE | 2021-11-11 15:27 | DI.US.S_ITS ---
PROCEDURE: US PERIPH VENOUS LOW EXTREM RT INDICATIONS: rule out DVT TECHNIQUE: Real-time imaging, as well as color and pulse Doppler interrogation, were performed of the lower extremity deep veins from the inguinal ligament to the popliteal fossa. COMPARISON: None. FINDINGS: The common femoral, femoral and popliteal veins are normally compressible, and free of intraluminal thrombus. Color and pulse Doppler demonstrate normal phasic intraluminal flow. There is normal augmentation response to distal compression maneuver. IMPRESSION: No DVT identified. Dictated by: Fabio Bahena M.D. on 11/11/2021 at 16:18 Approved by: Fabio Bahena M.D. on 11/11/2021 at 16:18
[2021-11-11] MEDS: LIDOCAINE PATCH 1 EACH ADH..PATCH TOP (17:51)
[2021-11-11] MEDS: KETOROLAC 10 MG TABLET PO (17:52)
[2021-11-11] MEDS: ACETAMINOPHEN 325 MG TABLET 975 MG PO (17:52)
[2021-11-11 17:55] VITALS: BP 153/77; PULSE 69; O2SAT 100
--- NOTE | 2021-11-11 18:37 | ED.LOWEXIN ---
HPI - Extremity Injury (Lower) <Sarah Hartman, [facility] - Last Filed: 11/11/21 18:46> General Chief Complaint: Extremity Injury, Lower Stated Complaint: possible blood clots Time Seen by Provider: 11/11/21 17:04 Source: patient Mode of arrival: Ambulatory History of Present Illness HPI Narrative: This is a 7-year-old female who presents to the emergency department with posterior right knee pain, tenderness with some mild edema, reports that this has been increasing and has moved distally into her calf with some tenderness, and edema there. Patient reports that her son from a pulmonary embolism, she was worried about a blood clot. Patient is not on any anticoagulants, denies any history of blood clots, states that she does have history of arthritis denies any trauma to her right knee. She states at baseline she is very active and walks at least 5 miles daily, states that she has not been able to do this over the last two weeks due to her right knee pain. She denies any edema near her foot, she denies any discoloration, wound, fever, shortness of breath, weakness or sensation changes. Related Data Home Medications Medication Instructions Recorded Confirmed albuterol sulfate 90 mcg/actuation 2 puff inhalation .PRN PRN 02/07/20 04/28/20 aerosol inhaler (ProAir HFA) Allergic Reaction olmesartan 5 mg tablet (Benicar) 10 mg PO DAILY 03/12/20 04/28/20 albuterol sulfate 2.5 mg/3 mL 2.5 mg inhalation Q6-8H PRN 04/28/20 04/28/20 (0.083 %) solution for nebulization fluticasone propionate 115 2 puff inhalation BID 04/28/20 04/28/20 mcg-salmeterol 21 mcg/actuation HFA inhaler Previous Rx's Medication Instructions Recorded levothyroxine 112 mcg tablet 112 mcg PO DAILY #90 tabs 12/17/20 diclofenac sodium 3 % topical gel 1 applic topical BID PRN knee pain 11/11/21 #100 grams lidocaine 5 % topical cream 1 applic topical BID PRN pain #15 11/11/21 grams meloxicam 7.5 mg tablet 7.5 mg PO DAILY PRN knee pain and 11/11/21 swelling #14 tabs Allergies Allergy/AdvReac Type Severity Reaction Status Date / Time No Known Drug Allergies Allergy Verified 04/28/20 11:10 <Karlee Powell DO - Last Filed: 11/12/21 07:47> History of Present Illness HPI Narrative: This is a 61-year-old female who presents to the emergency department with posterior right knee pain, tenderness with some mild edema, reports that this has been increasing and has moved distally into her calf with some tenderness, and edema there. Patient reports that her son from a pulmonary embolism, she was worried about a blood clot. Patient is not on any anticoagulants, denies any history of blood clots, states that she does have history of arthritis denies any trauma to her right knee. She states at baseline she is very active and walks at least 5 miles daily, states that she has not been able to do this over the last two weeks due to her right knee pain. She denies any edema near her foot, she denies any discoloration, wound, fever, shortness of breath, weakness or sensation changes. Review of Systems <ANGELIC Villarreal - Last Filed: 11/11/21 18:46> Review of Systems Narrative: General: denies fever, chills Head/Neck: denies headache, neck pain Eyes: denies visual changes, eye pain Cardio: denies chest pain, palpitations Respiratory: denies shortness of breath, cough GI: denies abdominal pain, nausea, vomiting, or diarrhea : denies dysuria, hematuria or flank pain MSK: denies new joint pain, muscle weakness, or sensation changes, endorses tenderness and swelling to the back of her right knee with extension into her calf. Skin: denies rash, itching or wound Neuro: denies numbness, tingling, dizziness Patient History <ANGELIC Villarreal - Last Filed: 11/11/21 18:46> Medical History Acquired hypothyroidism (~1989) Allergic rhinitis (~1969) COPD (chronic obstructive pulmonary disease) Essential hypertension (~2009) Surgical History Anesthesia History of dental surgery (~02/11/20) S/P carpal tunnel release (~2011) S/P cholecystectomy (~2004) S/P hysterectomy (~2006) Family History Father Hypertension Brother Cancer Blind Sister Colon cancer Mother No problems noted. Brother COPD (chronic obstructive pulmonary disease) Brother Liver disease Grandmother Colon cancer Social History household members: spouse Smoking Status: Current every day smoker Smoking Status: Current every day smoker alcohol intake frequency: holidays/special occasions only Substance Use Type: does not use Exam <ANGELIC Villarreal - Last Filed: 11/11/21 18:46> Narrative Exam Narrative: Independently reviewed vitals signs and nursing notes. General: Awake, alert, nontoxic, no cardiorespiratory distress Head/Neck: Atraumatic, neck supple Eyes: EOMI, conjunctiva normal Nose: nares patent, no rhinorrhea Mouth/Throat: moist mucus membranes, posterior pharynx without erythema or lesion Cardio: Regular rate and rhythm, no peripheral edema Respiratory: respirations unlabored without wheezing, stridor, or rales. No retractions, hypoxia or tachypnea GI: Abdomen soft, nontender to palpation x4 quadrants, no guarding or rebound tenderness MSK: Moves all extremities, neurovascularly intact, range of motion without deficit, posterior right knee has some mild edema, suprapatellar edema is visible and palpable, patient endorses bilateral knee osteoarthritis, no discoloration, erythema, significant tenderness to palpation, no fluctuance, could be ruptured Gallardo cyst with tenderness and edema to the proximal gastrocnemius. Palpation of her gastrocnemius muscle is nontender. No dependent edema around her ankle Skin: Normal capillary refill, no rash Neuro: Normal speech and cognition, normal gait Initial Vital Signs Initial Vital Signs: Vital Signs Temperature 97.7 F 11/11/21 15:05 Pulse Rate 87 11/11/21 15:05 Respiratory Rate 18 11/11/21 15:05 Blood Pressure 160/91 H 11/11/21 15:05 Pulse Oximetry 97 11/11/21 15:05 Oxygen Delivery Method 11/11/21 15:05 <Karlee Powell DO - Last Filed: 11/12/21 07:47> Initial Vital Signs Initial Vital Signs: Vital Signs Temperature 97.7 F 11/11/21 15:05 Pulse Rate 87 11/11/21 15:05 Respiratory Rate 18 11/11/21 15:05 Blood Pressure 160/91 H 11/11/21 15:05 Pulse Oximetry 97 11/11/21 15:05 Oxygen Delivery Method 11/11/21 15:05 Course <Sarah Hartman [facility] - Last Filed: 11/11/21 18:46> Orders Ordered: Discontinued Medications Acetaminophen (Acetaminophen 325 Mg Tablet) 975 mg PO NOW ONE Stop: 11/11/21 17:37 Last Admin: 11/11/21 17:52 Dose: 975 mg Documented By: NR Ketorolac Tromethamine (Ketorolac 10 Mg Tablet) 10 mg PO NOW ONE Stop: 11/11/21 17:37 Last Admin: 11/11/21 17:52 Dose: 10 mg Documented By: NR Lidocaine (Lidocaine Patch 1 Each Adh..Patch) 1 each TOP NOW ONE Stop: 11/11/21 17:38 Last Admin: 11/11/21 17:51 Dose: 1 each Documented By: NR Vital Signs Vital signs: Vital Signs - 8 hr 11/11/21 15:05 11/11/21 17:55 Temperature 97.7 F Pulse Rate 87 69 Respiratory Rate 18 Blood Pressure 160/91 H 153/77 H Pulse Oximetry 97 100 Oxygen Delivery Method Room Air Room Air <Karlee Powell DO - Last Filed: 11/12/21 07:47> Orders Ordered: Discontinued Medications Acetaminophen (Acetaminophen 325 Mg Tablet) 975 mg PO NOW ONE Stop: 11/11/21 17:37 Last Admin: 11/11/21 17:52 Dose: 975 mg Documented By: NR Ketorolac Tromethamine (Ketorolac 10 Mg Tablet) 10 mg PO NOW ONE Stop: 11/11/21 17:37 Last Admin: 11/11/21 17:52 Dose: 10 mg Documented By: NR Lidocaine (Lidocaine Patch 1 Each Adh..Patch) 1 each TOP NOW ONE Stop: 11/11/21 17:38 Last Admin: 11/11/21 17:51 Dose: 1 each Documented By: NR Vital Signs Vital signs: Vital Signs - 8 hr 11/11/21 15:05 11/11/21 17:55 Temperature 97.7 F Pulse Rate 87 69 Respiratory Rate 18 Blood Pressure 160/91 H 153/77 H Pulse Oximetry 97 100 Oxygen Delivery Method Room Air Room Air MDM - Extremity Injury (Lower) <Sarah Wang Hartman, [facility] - Last Filed: 11/11/21 18:46> Imaging Data US - DVT: Radiologist's Impression: PROCEDURE:? US PERIPH VENOUS LOW EXTREM RT ? INDICATIONS:? rule out DVT ? TECHNIQUE:? Real-time imaging, as well as color and pulse Doppler interrogation, were performed of the lower extremity deep veins from the inguinal ligament to the popliteal fossa.? ? COMPARISON:? None. ? FINDINGS:? The common femoral, femoral and popliteal veins are normally compressible, and free of intraluminal thrombus.? Color and pulse Doppler demonstrate normal phasic intraluminal flow.? There is normal augmentation response to distal compression maneuver. ? ? IMPRESSION:? No DVT identified. ? ? Dictated by: Fabio Bahena M.D. on 11/11/2021 at 16:18 ? ? Approved by: Fabio Bahena M.D. on 11/11/2021 at 16:18 ? [facility] Narrative Medical decision making narrative: This is a 61-year-old female presents to the emergency department with concern about a right lower extremity DVT due to posterior knee edema, tenderness, and history of her son dying from a pulmonary embolism out of the blue. Patient had a vascular ultrasound of her right lower extremity which does not show any deep venous thrombosis. Normal augmentation response to distal compression maneuver. On exam, it appears that she may have a ruptured Gallardo cyst with edema in the posterior of her right knee, some edema has spread to the top of her gastrocnemius with edema and mild tenderness above her gastrocnemius muscle. She does not have any dependent edema in her lower extremity, there is no surrounding erythema, discoloration, she does have a suprapatellar effusion which is palpable. Patient endorses history of arthritis of bilateral knees. Discussed that this is likely tricompartmental osteoarthritis which is flared up causing the effusion in her knee, encouraged to use ice, rest,, she was prescribed meloxicam, does not have any history of GI bleeding, lidocaine cream, and diclofenac gel. Patient declined needing any additional medications, she understands to follow-up with her PCP, try these medications and treatments for her osteoarthritis flare, and to follow-up with orthopedics if it is not getting any better. Patient was given strict return precautions. Patient is appropriate and amenable to discharge home. Vital signs are stable on repeat examination is unremarkable. Patient has been informed of results. Patient has been given strict return to ER precautions for any new or worsening symptoms. Patient understands to follow up closely with outpatient providers as instructed. Patient understands plan and agrees to discharge home. All questions and concerns answered at this time. Discharge Plan Departure Patient Disposition: Home Clinical Impression: Effusion of knee joint right Instructions: Gallardo Cyst, DI for Osteoarthritis Activity Restrictions/Additional Instructions: *You have been diagnosed with a knee effusion likely from your arthritis, tenderness over the back of your knee, this is likely related to a Gallardo cyst, a likely ruptured but does not appear infectious. Please use ice, rest, elevation, topical diclofenac, and Mobic as needed for your knee pain. You may take Tylenol in addition to this and try the lidocaine cream verses the diclofenac gel, if you alternate them, a might provide good pain relief. Try to avoid overuse, follow-up with your primary doctor if this is not getting any better, return to the emergency department if you have any new weakness, worsening pain, sensation changes in your toes, or if you start feeling ill. There was no thrombosis found on ultrasound today, I that you feel better soon. *What to do: *Please continue to take your regular medications as directed. [x ] New medication prescriptions sent to your pharmacy: [ [facility]] [ ] New medication written as a paper prescription [ ] No new medications given *Please follow up with your primary care provider in 2-3 days, call for an appointment. Let them know you were seen in the Emergency Department and that we asked that you be seen for follow-up. We will electronically transmit a record of today's note if your PCP is in our system *If you do not have a primary care provider please contact [phone] to establish care with one of the [facility] primary care providers. *Return to Emergency Department if you should have any new, worsening or concerning symptoms, such as [fever greater than 101F, chills, worsening pain, persistent vomiting or other bothersome symptoms] Prescriptions: New diclofenac sodium 3 % gel 1 applic topical BID PRN (Reason: knee pain) Qty: 100 0RF meloxicam 7.5 mg tablet 7.5 mg PO DAILY PRN (Reason: knee pain and swelling) Qty: 14 0RF lidocaine 5 % cream 1 applic topical BID PRN (Reason: pain) Qty: 15 0RF No Action levothyroxine 112 mcg tablet 112 mcg PO DAILY Qty: 90 1RF Rx Instructions: [employer] ONLY albuterol sulfate [ProAir HFA] 90 mcg/actuation HFA aerosol inhaler 2 puff INHALATION .PRN PRN (Reason: Allergic Reaction) albuterol sulfate 2.5 mg /3 mL (0.083 %) solution for nebulization 2.5 mg inhalation Q6-8H PRN Rx Instructions: Uses only when needed for seasonal allergies. Advair HFA 115-21 mcg/actuation HFA aerosol inhaler 2 puff inhalation BID olmesartan [Benicar] 5 mg Tablet 10 mg PO DAILY Referrals: Solo Raymond MD [Primary Care Provider] - Visit Report Forms: Patient Portal/API <Kalree Powell DO - Last Filed: 11/12/21 07:47> Cosign ED Attending Coswilliature Attestation: I was immediately available in the department for consultation. Documentation has been reviewed. I agree with assessment and plan.
== END 2021-11-11 17:56 | disposition home or self-care (01) ==
PROVIDERS: Emergency Provider Nurse Practitioner Critical Care Medicine; PCP Internal Medicine
DX: M25.461 Effusion, right knee (principal)
CPT/HCPCS: 93971; 99283

== ENCOUNTER 2022-03-09 12:09 | Emergency (ER) | payer OTHER, MEDICAID, SELFPAY ==
[2022-03-09] VITALS (12 sets, daily range): BP systolic 110–121; BP diastolic 59–65; PULSE 82–94; RESP 20–21; TEMP 36.9–37.1; O2SAT 91–97; BMI 20.3
--- NOTE | 2022-03-09 12:37 | DI.RAD.S_ITS ---
PROCEDURE: XR CHEST 2V INDICATIONS: shortness of breath TECHNIQUE: 2 views of the chest were acquired. COMPARISON: None. FINDINGS: Surgical changes and devices: None. Lungs and pleura: Lungs are clear. No pleural effusions or pneumothorax. Mediastinum: Mediastinal contours are normal. Heart size is normal. Bones and chest wall: No suspicious bony abnormalities. Soft tissues appear unremarkable. IMPRESSION: No acute cardiopulmonary findings. Dictated by: Suzy Richard M.D. on 03/09/2022 at 13:36 Approved by: Suzy Richard M.D. on 03/09/2022 at 13:36
--- NOTE | 2022-03-09 13:00 | ED.SOB ---
HPI - SOB/Dyspnea <Sarah Hartman, [facility] - Last Filed: 03/09/22 19:47> General Chief Complaint: Shortness of Breath/Dyspnea Stated Complaint: high fever low oxygen cant breathe x3 days Time Seen by Provider: 03/09/22 12:49 Source: patient Mode of arrival: Ambulatory Limitations: no limitations History of Present Illness HPI Narrative: This is a 61-year-old female with history of COPD, smoking, hypertension and hypothyroidism who presents to the emergency department complaining of shortness of breath, productive cough, fever with a T-max of 103? yesterday, states that she is COVID vaccinated x3 but endorses shortness of breath, and fever with increased mucus production. She denies chest pain, she denies dizziness, weakness, altered mental status. States that she is using her normal medications as prescribed, she is not anticoagulated. States that for 3 days she is been feeling horrible, endorses wheezing but states that isn't the main problem, endorses body aches. Related Data Home Medications Medication Instructions Recorded Confirmed albuterol sulfate 90 mcg/actuation 2 puff inhalation .PRN PRN 02/07/20 04/28/20 aerosol inhaler (ProAir HFA) Allergic Reaction olmesartan 5 mg tablet (Benicar) 10 mg PO DAILY 03/12/20 04/28/20 albuterol sulfate 2.5 mg/3 mL 2.5 mg inhalation Q6-8H PRN 04/28/20 04/28/20 (0.083 %) solution for nebulization fluticasone propionate 115 2 puff inhalation BID 04/28/20 04/28/20 mcg-salmeterol 21 mcg/actuation HFA inhaler Previous Rx's Medication Instructions Recorded levothyroxine 112 mcg tablet 112 mcg PO DAILY #90 tabs 12/17/20 diclofenac sodium 3 % topical gel 1 applic topical BID PRN knee pain 11/11/21 #100 grams lidocaine 5 % topical cream 1 applic topical BID PRN pain #15 11/11/21 grams meloxicam 7.5 mg tablet 7.5 mg PO DAILY PRN knee pain and 11/11/21 swelling #14 tabs oseltamivir 75 mg capsule (Tamiflu) 75 mg PO BID influenza a 10 days 03/09/22 #20 caps Allergies Allergy/AdvReac Type Severity Reaction Status Date / Time Sulfa (Sulfonamide Allergy Verified 03/09/22 12:24 Antibiotics) Review of Systems <ANGELIC Villarreal - Last Filed: 03/09/22 19:47> Review of Systems Narrative: Review of systems is negative for acute abnormalities unless otherwise noted in HPI Patient History <ANGELIC Villarreal - Last Filed: 03/09/22 19:47> Medical History Acquired hypothyroidism (~1989) Allergic rhinitis (~1969) COPD (chronic obstructive pulmonary disease) Essential hypertension (~2009) Surgical History Anesthesia History of dental surgery (~02/11/20) S/P carpal tunnel release (~2011) S/P cholecystectomy (~2004) S/P hysterectomy (~2006) Family History Father Hypertension Brother Cancer Blind Sister Colon cancer Mother No problems noted. Brother COPD (chronic obstructive pulmonary disease) Brother Liver disease Grandmother Colon cancer Social History household members: spouse Smoking Status: Current every day smoker Smoking Status: Current every day smoker alcohol intake frequency: holidays/special occasions only Substance Use Type: does not use Exam <ANGELIC Villarreal - Last Filed: 03/09/22 19:47> Narrative Exam Narrative: Reviewed vitals signs and nursing notes. General: cooperative, comfortable, in no acute distress, well groomed HEENT: symmetrical facial expressions, moist mucous membranes Cardiovascular: regular rate and rhythm, no peripheral edema, warm extremities Respiratory: Increased effort, able to speak in short sentences, inspiratory expiratory wheezing, supraclavicular retractions, tachypnea, intercostal retractions, without stridor she is diminished in the right middle anterior and bilateral lower lobes. GI: abdomen soft, nontender to palpation, nondistended, without masses, rebound tenderness or exquisite tenderness with exam. MSK: moves all extremities, neurovascularly intact, no weakness, normal tone Skin: brisk capillary refill, without pallor or erythema Neuro: normal speech and cognition, A&O x3, ambulatory, clear speech Psych: mental status is grossly normal, congruent mood, normal affect, pleasant and cooperative Initial Vital Signs Initial Vital Signs: Vital Signs Temperature 98.4 F 03/09/22 12:18 Pulse Rate 92 H 03/09/22 12:18 Respiratory Rate 20 03/09/22 12:18 Blood Pressure 117/63 03/09/22 12:18 Pulse Oximetry 97 03/09/22 12:18 Oxygen Delivery Method 03/09/22 12:18 <Anabel Engel DO - Last Filed: 03/14/22 05:02> Initial Vital Signs Initial Vital Signs: Vital Signs Temperature 98.4 F 03/09/22 12:18 Pulse Rate 92 H 03/09/22 12:18 Respiratory Rate 20 03/09/22 12:18 Blood Pressure 117/63 03/09/22 12:18 Pulse Oximetry 97 03/09/22 12:18 Oxygen Delivery Method 03/09/22 12:18 Scores <ANGELIC Villarreal - Last Filed: 03/09/22 19:47> qSOFA Altered Mental Status (GCS <15): No Respiratory rate greater than/equal to 22: Yes Systolic blood pressure less than or equal to 100: No qSOFA Total: 1 0-1 Not High Risk 1-3 High risk <Anabel Engel DO - Last Filed: 03/14/22 05:02> qSOFA qSOFA Total: 1 Course <ANGELIC Villarreal - Last Filed: 03/09/22 19:47> Orders Ordered: Discontinued Medications Acetaminophen (Acetaminophen 325 Mg Tablet) 650 mg PO NOW ONE Stop: 03/09/22 14:33 Last Admin: 03/09/22 14:39 Dose: 650 mg Documented By: JORGE Albuterol/Ipratropium (Albuterol/Ipratropium 3 Ml Ampul) 3 ml INH NOW ONE Stop: 03/09/22 12:57 Last Admin: 03/09/22 13:16 Dose: 3 ml Documented By: WangK Amoxicillin/Clavulanate Potassium (Amoxicillin/Clav 875/125 Mg) 1 tab PO NOW ONE Stop: 03/09/22 13:52 Azithromycin (Azithromycin 250 Mg Tablet) 500 mg PO NOW ONE Stop: 03/09/22 13:52 Sodium Chloride (Normal Saline 0.9%) 1,000 mls @ 1,000 mls/hr IV BOLUS ONE Stop: 03/09/22 14:41 Last Admin: 03/09/22 14:39 Dose: 1,000 mls/hr Documented By: BT Ketorolac Tromethamine (Ketorolac 30 Mg/Ml Vial) 15 mg IV NOW ONE Stop: 03/09/22 14:33 Last Admin: 03/09/22 14:40 Dose: 15 mg Documented By: BT Methylprednisolone (Methylprednisolone 125 Mg/2 Ml Vial) 125 mg IV NOW ONE Stop: 03/09/22 13:52 Last Admin: 03/09/22 14:40 Dose: 125 mg Documented By: BT Oseltamivir Phosphate (Oseltamivir 75 Mg Capsule) 75 mg PO NOW ONE Stop: 03/09/22 14:20 Last Admin: 03/09/22 14:39 Dose: 75 mg Documented By: BT Vital Signs Vital signs: Vital Signs - 8 hr 03/09/22 12:18 03/09/22 13:19 03/09/22 15:06 Temperature 98.4 F 98.7 F Pulse Rate 92 H 83 Respiratory Rate 20 21 Blood Pressure 117/63 116/65 Pulse Oximetry 97 93 97 Oxygen Delivery Method Room Air Room Air Room Air 03/09/22 12:41 03/09/22 13:02 03/09/22 13:06 Temperature Pulse Rate 93 H 88 89 Respiratory Rate Blood Pressure Pulse Oximetry 95 94 Oxygen Delivery Method 03/09/22 13:06 03/09/22 13:30 03/09/22 13:30 Temperature Pulse Rate 85 Respiratory Rate Blood Pressure 110/61 121/59 L Pulse Oximetry 93 Oxygen Delivery Method 03/09/22 14:00 03/09/22 14:00 03/09/22 14:30 Temperature Pulse Rate 93 H 94 H Respiratory Rate Blood Pressure 112/59 L Pulse Oximetry 91 93 Oxygen Delivery Method 03/09/22 15:00 03/09/22 15:08 03/09/22 15:08 Temperature Pulse Rate 89 86 Respiratory Rate Blood Pressure 116/65 Pulse Oximetry 93 92 Oxygen Delivery Method 03/09/22 15:30 Temperature Pulse Rate 82 Respiratory Rate Blood Pressure Pulse Oximetry 93 Oxygen Delivery Method <Anabel Engel, DO - Last Filed: 03/14/22 05:02> Orders Ordered: Discontinued Medications Acetaminophen (Acetaminophen 325 Mg Tablet) 650 mg PO NOW ONE Stop: 03/09/22 14:33 Last Admin: 03/09/22 14:39 Dose: 650 mg Documented By: BT Albuterol/Ipratropium (Albuterol/Ipratropium 3 Ml Ampul) 3 ml INH NOW ONE Stop: 03/09/22 12:57 Last Admin: 03/09/22 13:16 Dose: 3 ml Documented By: APRIL Amoxicillin/Clavulanate Potassium (Amoxicillin/Clav 875/125 Mg) 1 tab PO NOW ONE Stop: 03/09/22 13:52 Azithromycin (Azithromycin 250 Mg Tablet) 500 mg PO NOW ONE Stop: 03/09/22 13:52 Sodium Chloride (Normal Saline 0.9%) 1,000 mls @ 1,000 mls/hr IV BOLUS ONE Stop: 03/09/22 14:41 Last Admin: 03/09/22 14:39 Dose: 1,000 mls/hr Documented By: BT Ketorolac Tromethamine (Ketorolac 30 Mg/Ml Vial) 15 mg IV NOW ONE Stop: 03/09/22 14:33 Last Admin: 03/09/22 14:40 Dose: 15 mg Documented By: BT Methylprednisolone (Methylprednisolone 125 Mg/2 Ml Vial) 125 mg IV NOW ONE Stop: 03/09/22 13:52 Last Admin: 03/09/22 14:40 Dose: 125 mg Documented By: BT Oseltamivir Phosphate (Oseltamivir 75 Mg Capsule) 75 mg PO NOW ONE Stop: 03/09/22 14:20 Last Admin: 03/09/22 14:39 Dose: 75 mg Documented By: BT Vital Signs Vital signs: Vital Signs - 8 hr 03/09/22 12:18 03/09/22 13:19 03/09/22 15:06 Temperature 98.4 F 98.7 F Pulse Rate 92 H 83 Respiratory Rate 20 21 Blood Pressure 117/63 116/65 Pulse Oximetry 97 93 97 Oxygen Delivery Method Room Air Room Air Room Air 03/09/22 12:41 03/09/22 13:02 03/09/22 13:06 Temperature Pulse Rate 93 H 88 89 Respiratory Rate Blood Pressure Pulse Oximetry 95 94 Oxygen Delivery Method 03/09/22 13:06 03/09/22 13:30 03/09/22 13:30 Temperature Pulse Rate 85 Respiratory Rate Blood Pressure 110/61 121/59 L Pulse Oximetry 93 Oxygen Delivery Method 03/09/22 14:00 03/09/22 14:00 03/09/22 14:30 Temperature Pulse Rate 93 H 94 H Respiratory Rate Blood Pressure 112/59 L Pulse Oximetry 91 93 Oxygen Delivery Method 03/09/22 15:00 03/09/22 15:08 03/09/22 15:08 Temperature Pulse Rate 89 86 Respiratory Rate Blood Pressure 116/65 Pulse Oximetry 93 92 Oxygen Delivery Method 03/09/22 15:30 Temperature Pulse Rate 82 Respiratory Rate Blood Pressure Pulse Oximetry 93 Oxygen Delivery Method MDM - SOB/Dyspnea <ANGELIC Villarreal - Last Filed: 03/09/22 19:47> Lab Data Result diagrams: 03/09/22 12:50 03/09/22 12:50 Labs: Lab Results 03/09/22 03/09/22 03/09/22 Range/Units 12:45 12:50 12:50 WBC 4.8 (4.5-11.0) X10^3/uL RBC 4.41 (4.0-5.2) X10^6/uL Hgb 13.1 (12.0-16.0) g/dL Hct 39.3 (36-46) % MCV 89.1 (80-100) fL MCH 29.7 (26-34) PG MCHC 33.3 (30-36) % RDW 13.3 (11.6-14.8) % Plt Count 158 (150-400) X10^3/uL Neut % (Auto) 75.9 H (50-75) % Lymph % (Auto) 16.6 L (25-40) % Mcculloch % (Auto) 6.2 (3-14) % Eos % (Auto) 0.5 L (2-4) % Baso % (Auto) 0.8 (0-2) % Neut # (Auto) 3600 (1150-8846) /uL Lymph # (Auto) 800 L (0402-6738) /uL Mcculloch # (Auto) 300 (0-900) /uL Eos # (Auto) 0 (0-450) /uL Baso # (Auto) 0 (0-100) /uL Sodium (137-145) mmol/L Potassium (3.4-5.1) mmol/L Chloride (98-107) mmol/L Carbon Dioxide (22-32) mmol/L BUN (7-17) mg/dL Creatinine (0.52-1.04) mg/dL Estimated GFR (>60) mL/min BUN/Creatinine Ratio (6-22) Glucose (80-110) mg/dL Lactate 0.9 (0.7-2.1) mmol/L Calcium (8.4-10.2) mg/dL Magnesium (1.6-2.3) mg/dL Total Bilirubin (0.2-1.3) mg/dL AST (14-36) IU/L ALT (<35) IU/L Alkaline Phosphatase (38-126) U/L C-Reactive Protein (<1.0) mg/dL Total Protein (6.3-8.2) g/dL Albumin (3.5-5.0) g/dL Globulin (1.7-4.1) g/dL Albumin/Globulin Ratio (1.0-2.8) SARS-CoV-2 (PCR) Negative (Negative) Influenza A (RT-PCR) Flu a positive H (NEGATIVE) Influenza B (RT-PCR) Flu b negative (NEGATIVE) 03/09/22 Range/Units 12:50 WBC (4.5-11.0) X10^3/uL RBC (4.0-5.2) X10^6/uL Hgb (12.0-16.0) g/dL Hct (36-46) % MCV (80-100) fL MCH (26-34) PG MCHC (30-36) % RDW (11.6-14.8) % Plt Count (150-400) X10^3/uL Neut % (Auto) (50-75) % Lymph % (Auto) (25-40) % Mcculloch % (Auto) (3-14) % Eos % (Auto) (2-4) % Baso % (Auto) (0-2) % Neut # (Auto) (1129-4906) /uL Lymph # (Auto) (4078-3675) /uL Mcculloch # (Auto) (0-900) /uL Eos # (Auto) (0-450) /uL Baso # (Auto) (0-100) /uL Sodium 136 L (137-145) mmol/L Potassium 3.6 (3.4-5.1) mmol/L Chloride 101 (98-107) mmol/L Carbon Dioxide 27 (22-32) mmol/L BUN 14 (7-17) mg/dL Creatinine 0.79 (0.52-1.04) mg/dL Estimated GFR > 60 (>60) mL/min BUN/Creatinine Ratio 17.7 (6-22) Glucose 102 (80-110) mg/dL Lactate (0.7-2.1) mmol/L Calcium 8.0 L (8.4-10.2) mg/dL Magnesium 1.9 (1.6-2.3) mg/dL Total Bilirubin 0.2 (0.2-1.3) mg/dL AST 38 H (14-36) IU/L ALT 32 (<35) IU/L Alkaline Phosphatase 31 L (38-126) U/L C-Reactive Protein 5.4 H (<1.0) mg/dL Total Protein 6.9 (6.3-8.2) g/dL Albumin 3.8 (3.5-5.0) g/dL Globulin 3.1 (1.7-4.1) g/dL Albumin/Globulin Ratio 1.2 (1.0-2.8) SARS-CoV-2 (PCR) (Negative) Influenza A (RT-PCR) (NEGATIVE) Influenza B (RT-PCR) (NEGATIVE) Imaging Data Chest x-ray: Radiologist's Impression: PROCEDURE:? XR CHEST 2V ? INDICATIONS:? shortness of breath ? TECHNIQUE:? 2 views of the chest were acquired.? ? COMPARISON:? None. ? FINDINGS:? ? Surgical changes and devices:? None.? ? Lungs and pleura:? Lungs are clear.? No pleural effusions or pneumothorax.? ? Mediastinum:? Mediastinal contours are normal.? Heart size is normal.? ? Bones and chest wall:? No suspicious bony abnormalities.? Soft tissues appear unremarkable.? ? IMPRESSION:? No acute cardiopulmonary findings. ? ? Dictated by: Suzy Richard M.D. on 03/09/2022 at 13:36 ? ? Approved by: Suzy Richard M.D. on 03/09/2022 at 13:36 ? ECG Data Interpretation: EKG independently reviewed and reveals normal sinus rhythm at 89 bpm with regular axis and intervals. No STEMI, ST segment changes, arrhythmia, or acute ischemic changes. MDM Narrative Medical decision making narrative: This is a 61-year-old female who presents to the emergency department with reported fever for the last 3 days, shortness of breath, history of COPD smoking, muscle aches, and a cough. Her respiratory panel was positive for influenza A, negative for COVID and influenza B. her chest x-ray does not show any acute cardiopulmonary findings, she was tachypneic without an oxygen requirement or any exertional respiratory effort. Patient was without hypoxia, her lab work overall is reassuring, no leukocytosis or anemia, no gross electrolyte abnormalities, her lactate is 0.9, total bilirubin is 0.2, CRP is elevated at 5.4. This is most likely attributed to her influenza A positive PCR. This is her 3rd day of symptoms, she was given Toradol and Tylenol in the emergency department a DuoNeb initially which patient states helped her feel better and improved her aeration mildly. She was given 75 mg of Tamiflu and prescribed 10 days of b.i.d. dosing, encouraged to use Tylenol and ibuprofen as needed for her pain and fever, she was given 125 mg of methylprednisolone due to her wheezing and COPD exacerbation presentation. She is given a prescription of prednisone 40 mg daily for the next 5 days. She is in encouraged to stop taking Tamiflu after at least 5 days if she is better and up to 10 days maximum but to discontinue after her symptoms from the flu or improve. If she has ongoing cough, productive cough, discussed that this could turn into a bacterial pneumonia. Discussed starting Zyrtec q.h.s., fluticasone b.i.d., and she will be on steroids with Tamiflu. Patient's expresses concern for him developing illness, he received his COVID vaccination 2 weeks ago and has a cough. Discussed that this is contagious, and if she shares it in the home, her course maybe longer. Patient was given strict return precautions for any worsening, severe shortness of breath the come back to the emergency department, nausea vomiting or any symptoms that she can not manage at home to come back in for evaluation. She was given 1 L of normal saline for dehydration and states that it helped her feel better. Patient is appropriate and amenable to discharge home. Vital signs are stable on repeat examination is unremarkable. Patient has been informed of results. Patient has been given strict return to ER precautions for any new or worsening symptoms. Patient understands to follow up closely with outpatient providers as instructed. Patient understands plan and agrees to discharge home. All questions and concerns answered at this time. <Anabel Caitlyn Engel, DO - Last Filed: 03/14/22 05:02> Lab Data Labs: Lab Results 03/09/22 03/09/22 03/09/22 Range/Units 12:45 12:50 12:50 WBC 4.8 (4.5-11.0) X10^3/uL RBC 4.41 (4.0-5.2) X10^6/uL Hgb 13.1 (12.0-16.0) g/dL Hct 39.3 (36-46) % MCV 89.1 (80-100) fL MCH 29.7 (26-34) PG MCHC 33.3 (30-36) % RDW 13.3 (11.6-14.8) % Plt Count 158 (150-400) X10^3/uL Neut % (Auto) 75.9 H (50-75) % Lymph % (Auto) 16.6 L (25-40) % Mcculloch % (Auto) 6.2 (3-14) % Eos % (Auto) 0.5 L (2-4) % Baso % (Auto) 0.8 (0-2) % Neut # (Auto) 3600 (5398-3627) /uL Lymph # (Auto) 800 L (4886-8044) /uL Mcculloch # (Auto) 300 (0-900) /uL Eos # (Auto) 0 (0-450) /uL Baso # (Auto) 0 (0-100) /uL Sodium (137-145) mmol/L Potassium (3.4-5.1) mmol/L Chloride (98-107) mmol/L Carbon Dioxide (22-32) mmol/L BUN (7-17) mg/dL Creatinine (0.52-1.04) mg/dL Estimated GFR (>60) mL/min BUN/Creatinine Ratio (6-22) Glucose (80-110) mg/dL Lactate 0.9 (0.7-2.1) mmol/L Calcium (8.4-10.2) mg/dL Magnesium (1.6-2.3) mg/dL Total Bilirubin (0.2-1.3) mg/dL AST (14-36) IU/L ALT (<35) IU/L Alkaline Phosphatase (38-126) U/L C-Reactive Protein (<1.0) mg/dL Total Protein (6.3-8.2) g/dL Albumin (3.5-5.0) g/dL Globulin (1.7-4.1) g/dL Albumin/Globulin Ratio (1.0-2.8) SARS-CoV-2 (PCR) Negative (Negative) Influenza A (RT-PCR) Flu a positive H (NEGATIVE) Influenza B (RT-PCR) Flu b negative (NEGATIVE) 03/09/22 Range/Units 12:50 WBC (4.5-11.0) X10^3/uL RBC (4.0-5.2) X10^6/uL Hgb (12.0-16.0) g/dL Hct (36-46) % MCV (80-100) fL MCH (26-34) PG MCHC (30-36) % RDW (11.6-14.8) % Plt Count (150-400) X10^3/uL Neut % (Auto) (50-75) % Lymph % (Auto) (25-40) % Mcculloch % (Auto) (3-14) % Eos % (Auto) (2-4) % Baso % (Auto) (0-2) % Neut # (Auto) (6318-1671) /uL Lymph # (Auto) (5424-7349) /uL Mcculloch # (Auto) (0-900) /uL Eos # (Auto) (0-450) /uL Baso # (Auto) (0-100) /uL Sodium 136 L (137-145) mmol/L Potassium 3.6 (3.4-5.1) mmol/L Chloride 101 (98-107) mmol/L Carbon Dioxide 27 (22-32) mmol/L BUN 14 (7-17) mg/dL Creatinine 0.79 (0.52-1.04) mg/dL Estimated GFR > 60 (>60) mL/min BUN/Creatinine Ratio 17.7 (6-22) Glucose 102 (80-110) mg/dL Lactate (0.7-2.1) mmol/L Calcium 8.0 L (8.4-10.2) mg/dL Magnesium 1.9 (1.6-2.3) mg/dL Total Bilirubin 0.2 (0.2-1.3) mg/dL AST 38 H (14-36) IU/L ALT 32 (<35) IU/L Alkaline Phosphatase 31 L (38-126) U/L C-Reactive Protein 5.4 H (<1.0) mg/dL Total Protein 6.9 (6.3-8.2) g/dL Albumin 3.8 (3.5-5.0) g/dL Globulin 3.1 (1.7-4.1) g/dL Albumin/Globulin Ratio 1.2 (1.0-2.8) SARS-CoV-2 (PCR) (Negative) Influenza A (RT-PCR) (NEGATIVE) Influenza B (RT-PCR) (NEGATIVE) Discharge Plan Departure Patient Disposition: Home Clinical Impression: Influenza A, COPD exacerbation, Fever Instructions: DI for Influenza -- Adult Activity Restrictions/Additional Instructions: *You have been diagnosed with influenza a, this is the standard flu, your might not get sick because he has his flu vaccine 2 weeks ago. Please take this Tamiflu for at least 5 days, twice a day, do not take more than 10 days but stopped taking when you are better. If you have ongoing productive cough, chills, fever, please follow-up at the walk-in clinic, with your primary care provider as needed for a recheck. This does not exclude the possibility of bacterial pneumonia. If you do not improve, or if you have worsening, please come back for another evaluation. Please take ibuprofen 600 mg with Tylenol 650 mg every 6 hours with a glass of water. Please also ensure that you are eating for nutrition and electrolytes. I hope that you start feeling better soon, please use Zyrtec 10-20 mg at night to help with symptoms. You can use Mucinex for productive cough, both of these medications are [id number]. Please take 20 mg of prednisone for the next 5 days to help manage your wheezing and inflammation. If you have worsening, please come back but you should hopefully get better in the next 2 days. *What to do: *Please continue to take your regular medications as directed. [x ] New medication prescriptions sent to your pharmacy: [[facility] ] [ ] New medication written as a paper prescription [ ] No new medications given *Please follow up with your primary care provider in 2-3 days, call for an appointment. Let them know you were seen in the Emergency Department and that we asked that you be seen for follow-up. We will electronically transmit a record of today's note if your PCP is in our system *If you do not have a primary care provider please contact [phone] to establish care with one of the [facility] primary care providers. *Return to Emergency Department if you should have any new, worsening, or concerning symptoms, such as [fever greater than 101F, chills, worsening pain, persistent vomiting or other bothersome symptoms]. Prescriptions: New oseltamivir [Tamiflu] 75 mg capsule 75 mg PO BID 10 Days Qty: 20 0RF No Action levothyroxine 112 mcg tablet 112 mcg PO DAILY Qty: 90 1RF Rx Instructions: [employer] ONLY albuterol sulfate [ProAir HFA] 90 mcg/actuation HFA aerosol inhaler 2 puff INHALATION .PRN PRN (Reason: Allergic Reaction) albuterol sulfate 2.5 mg /3 mL (0.083 %) solution for nebulization 2.5 mg inhalation Q6-8H PRN Rx Instructions: Uses only when needed for seasonal allergies. Advair HFA 115-21 mcg/actuation HFA aerosol inhaler 2 puff inhalation BID olmesartan [Benicar] 5 mg Tablet 10 mg PO DAILY diclofenac sodium 3 % gel 1 applic topical BID PRN (Reason: knee pain) Qty: 100 0RF meloxicam 7.5 mg tablet 7.5 mg PO DAILY PRN (Reason: knee pain and swelling) Qty: 14 0RF lidocaine 5 % cream 1 applic topical BID PRN (Reason: pain) Qty: 15 0RF Referrals: Solo Raymond MD [Primary Care Provider] - Visit Report Forms: Patient Portal/API <Anabel Engel DO - Last Filed: 03/14/22 05:02> Cosign ED Attending Natashaature Attestation: I was immediately available in the department for consultation. Documentation has been reviewed. Case was discussed with myself.
[2022-03-09] MEDS: ALBUTEROL/IPRATROPIUM 3 ML AMPUL INH (13:16)
[2022-03-09 13:20] LABS: Add Manual Diff / Slide Review NO; Basophils Absolute Auto 0 /uL (0-100); Basophils Percent Auto 0.8 % (0-2); Eosinophils Absolute Auto 0 /uL (0-450); Eosinophils Percent Auto 0.5 % (2-4); Hematocrit 39.3 % (36-46); Hemoglobin 13.1 g/dL (12.0-16.0); Lymphocytes Absolute Auto 800 /uL (1100-4500); Lymphocytes Percent Auto 16.6 % (25-40); Mean Corpuscular HGB Conc 33.3 % (30-36); Mean Corpuscular Hemoglobin 29.7 PG (26-34); Mean Corpuscular Volume 89.1 fL (80-100); Monocytes Absolute Auto 300 /uL (0-900); Monocytes Percent Auto 6.2 % (3-14); Neutrophils Absolute Auto 3600 /uL (1500-7000); Neutrophils Percent Auto 75.9 % (50-75); Platelet Count 158 X10^3/uL (150-400); Red Blood Cell Count 4.41 X10^6/uL (4.0-5.2); Red Cell Distribution Width 13.3 % (11.6-14.8); White Blood Cell Count 4.8 X10^3/uL (4.5-11.0)
[2022-03-09 13:34] LABS: Lactate (Lactic Acid) 0.9 mmol/L (0.7-2.1)
[2022-03-09 13:36] LABS: Alanine Aminotransferase 32 IU/L (<35); Albumin 3.8 g/dL (3.5-5.0); Albumin Globulin Ratio 1.2 (1.0-2.8); Alkaline Phosphatase 31 U/L (38-126); Aspartate Aminotransferase 38 IU/L (14-36); BUN Creatinine Ratio 17.7 (6-22); Bilirubin Total 0.2 mg/dL (0.2-1.3); Blood Urea Nitrogen 14 mg/dL (7-17); C-Reactive Protein Quant 5.4 mg/dL (<1.0); Carbon Dioxide 27 mmol/L (22-32); Chloride 101 mmol/L (98-107); Estimated Glomerular Filt Rate > 60 mL/min (>60); Globulin 3.1 g/dL (1.7-4.1); Glucose 102 mg/dL (80-110); HEMOLYSIS 20 (0-50); Magnesium 1.9 mg/dL (1.6-2.3); Potassium 3.6 mmol/L (3.4-5.1); Sodium 136 mmol/L (137-145); Total Protein 6.9 g/dL (6.3-8.2)
[2022-03-09 14:07] LABS: Influenza B - CEPHEID Flu B NEGATIVE (NEGATIVE)
[2022-03-09 14:10] LABS: COVID-19 CEPHEID PCR (VTM/NP) Negative (Negative)
[2022-03-09 14:19] LABS: Influenza A - CEPHEID Flu A POSITIVE (NEGATIVE)
[2022-03-09] MEDS: OSELTAMIVIR 75 MG CAPSULE PO (14:39)
[2022-03-09] MEDS: ACETAMINOPHEN 325 MG TABLET 650 MG PO (14:39)
[2022-03-09] MEDS: SODIUM CHLORIDE 0.9% 1,000 ML 1000 ML IV (14:39)
[2022-03-09] MEDS: KETOROLAC 30 MG/ML VIAL 15 MG IV (14:40)
[2022-03-09] MEDS: methylPREDNISolone 125 MG/2 ML VIAL IV (14:40)
== END 2022-03-09 16:00 | disposition home or self-care (01) ==
PROVIDERS: Emergency Medicine; Emergency Provider Nurse Practitioner Critical Care Medicine; PCP Internal Medicine
DX: J44.1 Chronic obstructive pulmonary disease with (acute) exacerbation (principal); J10.1 Influenza due to other identified influenza virus with other respiratory manifestations; R50.9 Fever, unspecified; Z20.822 Contact with and (suspected) exposure to COVID-19
CPT/HCPCS: 36415; 71046; 80053; 83605; 83735; 85025; 86140; 87040; 87635; 93005; 94640; 96374; 96375; 99284; C9803; J1885; J2930

== ENCOUNTER → 2022-04-01 11:29 | Outpatient (CLI) | payer OTHER, MEDICAID, SELFPAY ==
--- NOTE | 2022-04-01 | DI.CT.S_ITS ---
PROCEDURE: CT ABDOMEN PELVIS WO CON INDICATIONS: Left lower quadrant pain TECHNIQUE: After the administration of oral contrast, 5 mm thick sections acquired from the diaphragms to the symphysis. 5 mm coronal and sagittal reformats were performed. For radiation dose reduction, the following was used: automated exposure control, adjustment of mA and/or kV according to patient size. COMPARISON: None. FINDINGS: Image quality: Excellent. ABDOMEN: Lung bases: Lung bases are clear. Heart size is normal. Solid organs: Liver is normal in size. Gallbladder is surgically absent. . Pancreas is normal in size. Spleen is normal in size. No adrenal nodules. Both kidneys are normal in size, without hydronephrosis or nephrolithiasis. Peritoneum and bowel: Bowel loops demonstrate normal wall thickness and caliber. No free fluid or air. Moderate to severe sigmoid diverticulosis without evidence of diverticulitis. Nodes and vessels: No retroperitoneal or mesenteric adenopathy by size criteria. Aorta and inferior vena cava are normal in size. Miscellaneous: No ventral hernias. PELVIS: Genitourinary: Bladder wall thickness is normal. Miscellaneous: No inguinal hernias or adenopathy. Uterus is surgically absent. Bones: No suspicious bony lesions. No vertebral body compression fractures. IMPRESSION: 1. Moderately advanced sigmoid diverticulosis without evidence of diverticulitis. 2. No evidence of acute abdominal process. Dictated by: Miguelangel Dailey M.D. on 04/01/2022 at 15:33 Approved by: Miguelangel Dailey M.D. on 04/01/2022 at 15:48
== END ==
PROVIDERS: PCP Internal Medicine; Referring Provider Internal Medicine; Visit Provider Internal Medicine
DX: R10.32 Left lower quadrant pain (principal); K57.30 Diverticulosis of large intestine without perforation or abscess without bleeding
CPT/HCPCS: 74176

== ENCOUNTER → 2022-04-02 11:16 | Outpatient (CLI) | payer OTHER, MEDICAID, SELFPAY ==
--- NOTE | 2022-04-02 | DI.RAD.S_ITS ---
PROCEDURE: XR CHEST 2V INDICATIONS: Influenza due to other identified influenza virus with other TECHNIQUE: 2 views of the chest were acquired. COMPARISON: [facility], CR, XR CHEST 2V, 03/09/2022, 12:37. FINDINGS: Surgical changes and devices: None. Lungs and pleura: Lungs are clear. No pleural effusions or pneumothorax. Mediastinum: Mediastinal contours are normal. Heart size is normal. Bones and chest wall: No suspicious bony abnormalities. Soft tissues appear unremarkable. IMPRESSION: No acute cardiopulmonary abnormality. Dictated by: Fabio Bahena M.D. on 04/02/2022 at 13:01 Approved by: Fabio Bahena M.D. on 04/02/2022 at 13:01
== END ==
PROVIDERS: PCP Internal Medicine; Referring Provider Internal Medicine; Visit Provider Internal Medicine
DX: J10.1 Influenza due to other identified influenza virus with other respiratory manifestations (principal)
CPT/HCPCS: 71046

== ENCOUNTER → 2022-07-19 12:14 | Outpatient (CLI) | payer OTHER, MEDICAID, SELFPAY | PROVIDERS: PCP Internal Medicine; Referring Provider Internal Medicine; Visit Provider Internal Medicine | DX: E03.9 Hypothyroidism, unspecified (principal) | CPT/HCPCS: 36415; 84439; 84443 ==

== ENCOUNTER → 2022-07-22 10:30 | Outpatient (CLI) | payer OTHER, MEDICAID, SELFPAY ==
--- NOTE | 2022-07-22 | DI.MG.S_ITS ---
BILATERAL DIGITAL SCREENING MAMMOGRAM 3D/2D WITH CAD: 07/22/2022 CLINICAL: Routine screening. Family history of breast cancer. Comparison is made to exams dated: 07/22/2021 mammogram, 06/09/2020 mammogram, 06/06/2019 mammogram, and 02/27/2018 mammogram - [facility]. There are scattered areas of fibroglandular density in both breasts (category b / 25%-50% glandular tissue). Current study was also evaluated with a Computer Aided Detection (CAD) system. There is possible architectural distortion in the right breast anterior depth lateral region seen on the craniocaudal view only. No other significant masses, calcifications, or other findings are seen in either breast. IMPRESSION: INCOMPLETE: NEEDS ADDITIONAL IMAGING EVALUATION The possible architectural distortion in the right breast is indeterminate. Additional views with possible ultrasound are recommended. Based on the Tyrer Cuzick model (a risk assessment model) the patient's lifetime risk is 7.3% and her 10 year risk is 2.9%. According to the ACR, ACS, and NCCN guidelines, an annual breast MRI exam along with mammogram is recommended if the patient's lifetime risk is 20% or greater. This exam was interpreted at Station ID: [id number]. NOTE: For mammograms, a report in lay terms will be sent to the patient. Approximately 15% of breast malignancies will not be visualized mammographically. In the management of a palpable breast mass, a negative mammogram must not discourage biopsy of a clinically suspicious lesion. Electronically Signed By: Jonathon Murry M.D. slc/:07/22/2022 12:53:46 letter sent: Additional Imaging Needed ACR BI-RADS Category 0: Incomplete 3340F
== END ==
PROVIDERS: PCP Internal Medicine; Referring Provider Student in an Organized Health Care Education/Training Program; Visit Provider Student in an Organized Health Care Education/Training Program
DX: Z12.31 Encounter for screening mammogram for malignant neoplasm of breast (principal); Z80.3 Family history of malignant neoplasm of breast
CPT/HCPCS: 77063; 77067

== ENCOUNTER → 2022-08-18 08:09 | Outpatient (CLI) | payer OTHER, MEDICAID, SELFPAY ==
--- NOTE | 2022-08-18 | DI.MG.S_ITS ---
UNILATERAL RIGHT DIGITAL DIAGNOSTIC MAMMOGRAM 3D/2D WITH ADDITIONAL VIEWS: 08/18/2022 CLINICAL: Additional evaluation requested from prior study. Comparison is made to exams dated: 07/22/2022 mammogram, 07/22/2021 mammogram, and 06/09/2020 mammogram - [facility]. There are scattered areas of fibroglandular density in the right breast (category b / 25%-50% glandular tissue). There is a possible architectural distortion in the right breast middle depth lateral region seen on the craniocaudal view only. This is less prominent with compression and stable compared to 2020 imaging. No other significant masses or calcifications are seen in the breast. IMPRESSION: BENIGN There is no mammographic evidence of malignancy. Return to annual mammogram screening schedule is recommended. Based on the Tyrer Cuzick model (a risk assessment model) the patient's lifetime risk is 7.3% and her 10 year risk is 2.9%. According to the ACR, ACS, and NCCN guidelines, an annual breast MRI exam along with mammogram is recommended if the patient's lifetime risk is 20% or greater. This exam was interpreted at Station ID: [id number]. NOTE: For mammograms, a report in lay terms will be sent to the patient. Approximately 15% of breast malignancies will not be visualized mammographically. In the management of a palpable breast mass, a negative mammogram must not discourage biopsy of a clinically suspicious lesion. Electronically Signed By: Torin Warner M.D. lc/:08/18/2022 08:32:20 letter sent: Normal Exam ACR BI-RADS Category 2: Benign Finding(s) 3342F
== END ==
PROVIDERS: PCP Internal Medicine; Referring Provider Internal Medicine; Visit Provider Internal Medicine
DX: R92.8 Other abnormal and inconclusive findings on diagnostic imaging of breast (principal)
CPT/HCPCS: 77065; G0279

== ENCOUNTER → 2022-08-19 12:50 | Outpatient (CLI) | payer OTHER, MEDICAID, SELFPAY ==
[2022-08-19 13:50] LABS: Alanine Aminotransferase 20 IU/L (<35); Albumin 3.8 g/dL (3.5-5.0); Albumin Globulin Ratio 1.1 (1.0-2.8); Alkaline Phosphatase 40 U/L (38-126); Aspartate Aminotransferase 23 IU/L (14-36); BUN Creatinine Ratio 18.8 (6-22); Bilirubin Total 0.3 mg/dL (0.2-1.3); Blood Urea Nitrogen 15 mg/dL (7-17); Calcium 8.6 mg/dL (8.4-10.2); Carbon Dioxide 33 mmol/L (22-32); Chloride 97 mmol/L (98-107); Estimated Glomerular Filt Rate > 60 mL/min (>60); Globulin 3.5 g/dL (1.7-4.1); Glucose 103 mg/dL (80-110); HEMOLYSIS < 15 (0-50); Potassium 4.1 mmol/L (3.4-5.1); Sodium 133 mmol/L (137-145); Total Protein 7.3 g/dL (6.3-8.2)
== END ==
PROVIDERS: PCP Internal Medicine; Referring Provider Internal Medicine Gastroenterology; Visit Provider Internal Medicine Gastroenterology
DX: R10.30 Lower abdominal pain, unspecified (principal)
CPT/HCPCS: 36415; 80053

== ENCOUNTER 2023-06-02 14:42 | Emergency (ER) | payer OTHER, MEDICAID, SELFPAY ==
[2023-06-02 15:07] VITALS: BP 172/81; PULSE 97; RESP 18; TEMP 36.6; O2SAT 95; BMI 22.1
--- NOTE | 2023-06-02 15:23 | ED_ITS ---
HPI - URI/Sore Throat <Jacobo Salgado PA-C - Last Filed: 06/02/23 16:48> General Chief Complaint: Upper Respiratory Symptoms Stated Complaint: cough,hard to breath, low Grade fever Time Seen by Provider: 06/02/23 15:23 Source: patient Mode of arrival: Ambulatory History of Present Illness HPI Narrative: This is a 62-year-old female presents emergency department due to Seven days of URI symptoms. Reports nasal congestion, cough, body aches as well as intermittent low-grade fevers. Has used an albuterol inhaler without significant relief. Quit smoking a year ago. States he was some mild ?chest tightness?. States that the cough is not productive. Related Data Home Medications Medication Instructions Recorded Confirmed albuterol sulfate 90 mcg/actuation 2 puff inhalation .PRN PRN 02/07/20 06/02/23 aerosol inhaler (ProAir HFA) Allergic Reaction albuterol sulfate 2.5 mg/3 mL 2.5 mg inhalation Q6-8H PRN 04/28/20 06/02/23 (0.083 %) solution for nebulization Shortness Of Breath fluticasone propionate 115 2 puff inhalation BID 04/28/20 06/02/23 mcg-salmeterol 21 mcg/actuation HFA inhaler amlodipine 5 mg tablet 5 mg PO DAILY 06/02/23 06/02/23 levothyroxine 112 mcg tablet 100 mcg PO DAILY 06/02/23 06/02/23 Previous Rx's Medication Instructions Recorded prednisone 20 mg tablet 40 mg (2 x 20 mg) PO DAILY #10 tabs 06/02/23 prednisone 20 mg tablet 40 mg (2 x 20 mg) PO DAILY #10 tabs 06/02/23 Allergies Allergy/AdvReac Type Severity Reaction Status Date / Time Sulfa (Sulfonamide Allergy Verified 06/02/23 15:10 Antibiotics) Review of Systems <Jacobo Salgado PA-C - Last Filed: 06/02/23 16:48> Review of Systems Narrative: GENERAL: Reports fevers Denies chills, fatigue, malaise, , sweats. HEENT: Reports sinus congestion, cough,, sore throat, difficulty swallowing, dizziness. RESPIRATORY: Reports chest tightness shortness of breath, Denies hemoptysis, sputum. CARDIOVASCULAR: Denies chest pain, palpitations, orthopnea, edema, GASTROINTESTINAL: Denies nausea, vomiting, abdominal pain, diarrhea, constipation, melena. : Denies dysuria, frequency, incontinence, hematuria, urinary retention. MUSCULOSKELETAL: denies weakness, joint pain, or bony pain SKIN: Denies rash, skin lesions, or other NEUROLOGIC: Denies weakness, headache, numbness, change in speech, confusion, seizures, incoordination. PSYCHIATRIC: No concerning psychosocial issues. 12 point review of systems is negative except for those stated above Patient History <Jacobo Salgado PA-C - Last Filed: 06/02/23 16:48> Medical History Acquired hypothyroidism (~1989) Allergic rhinitis (~1969) COPD (chronic obstructive pulmonary disease) Essential hypertension (~2009) Surgical History Anesthesia History of dental surgery (~02/11/20) S/P carpal tunnel release (~2011) S/P cholecystectomy (~2004) S/P hysterectomy (~2006) Family History Father Hypertension Brother Cancer Blind Sister Colon cancer Mother No problems noted. Brother COPD (chronic obstructive pulmonary disease) Brother Liver disease Grandmother Colon cancer Social History household members: spouse Smoking Status: Former smoker Smoking Status: Former smoker alcohol intake frequency: a few times a week Substance Use Type: does not use Exam <Jacobo Salgado PA-C - Last Filed: 06/02/23 16:48> Narrative Exam Narrative: GENERAL: Well-developed patient, in mild distress. HEAD: Atraumatic. Normocephalic. EYES: Pupils equal round and reactive. Extraocular motions intact. No scleral icterus. No injection or drainage. ENT: Nose without bleeding, purulent drainage. Throat without erythema, tonsillar hypertrophy or exudate. Airway patent. NECK: Trachea midline. Non tender EXTREMITIES: No edema or joint tenderness. NEURO: AOx3. SKIN: No rash or erythema of visible areas CARDIOVASCULAR: Regular rate and rhythm without murmurs, gallops, or rubs. RESPIRATORY: Coarse breath sounds bilaterally GASTROINTESTINAL: Abdomen soft, non-tender, nondistended. BACK: Nontender without deformity or crepitance. No flank tenderness. Initial Vital Signs Initial Vital Signs: Vital Signs Temperature 98 F 06/02/23 15:07 Pulse Rate 97 H 06/02/23 15:07 Respiratory Rate 18 06/02/23 15:07 Blood Pressure 172/81 H 06/02/23 15:07 Pulse Oximetry 95 06/02/23 15:07 Oxygen Delivery Method Room Air 06/02/23 15:07 <Anabel Alvarez MD - Last Filed: 06/04/23 09:35> Initial Vital Signs Initial Vital Signs: Vital Signs Temperature 98 F 06/02/23 15:07 Pulse Rate 97 H 06/02/23 15:07 Respiratory Rate 18 06/02/23 15:07 Blood Pressure 172/81 H 06/02/23 15:07 Pulse Oximetry 95 06/02/23 15:07 Oxygen Delivery Method Room Air 06/02/23 15:07 Course <Jacobo Salgado PA-C - Last Filed: 06/02/23 16:48> Orders Ordered: Discontinued Medications Albuterol/Ipratropium (Albuterol/Ipratropium 3 Ml Ampul) 3 ml INH NOW ONE Stop: 06/02/23 15:30 Last Admin: 06/02/23 15:37 Dose: 3 ml Documented By: MR Vital Signs Vital signs: Vital Signs - 8 hr 06/02/23 15:07 Temperature 98 F Pulse Rate 97 H Respiratory Rate 18 Blood Pressure 172/81 H Pulse Oximetry 95 Oxygen Delivery Method Room Air <Anabel Alvarez MD - Last Filed: 06/04/23 09:35> Orders Ordered: Discontinued Medications Albuterol/Ipratropium (Albuterol/Ipratropium 3 Ml Ampul) 3 ml INH NOW ONE Stop: 06/02/23 15:30 Last Admin: 06/02/23 15:37 Dose: 3 ml Documented By: MR Vital Signs Vital signs: Vital Signs - 8 hr 06/02/23 15:07 Temperature 98 F Pulse Rate 97 H Respiratory Rate 18 Blood Pressure 172/81 H Pulse Oximetry 95 Oxygen Delivery Method Room Air MDM - URI/Sore Throat <Jacobo Salgado PA-C - Last Filed: 06/02/23 16:48> Lab Data Labs: Lab Results 06/02/23 Range/Units 15:05 Chlamy pneumoniae PCR Not detected (Not Detect) Adenovirus (PCR) Not detected (Not Detect) B.parapertussis DNA PCR Not detected (Not Detecte) Coronavirus OC43 (PCR) Not detected (Not Detect) Coronavirus HKU1 (PCR) Not detected (Not Detect) Coronavirus 229E (PCR) Not detected (Not Detect) SARS-CoV-2 (PCR) Not detected (Not Detecte) Coronavirus NL63 (PCR) Not detected (Not Detect) Human Metapneumovir PCR Not detected (Not Detect) Influenza Type A (PCR) Not detected (Not Detect) Influenza Type B (PCR) Not detected (Not Detect) M. pneumoniae (PCR) Not detected (Not Detect) Parainfluenza 1 (PCR) Not detected (Not Detect) Parainfluenza 2 (PCR) Not detected (Not Detect) Parainfluenza 3 (PCR) Not detected (Not Detect) Parainfluenza 4 (PCR) Not detected (Not Detect) RSV (PCR) Detected H (Not Detect) Entero/Rhino (PCR) Not detected (Not Detect) Imaging Data Chest x-ray: Radiologist's Impression: [address] [address] XRay Report Signed Patient: Cynthia Pillai MR#: [id number] : 1960 Acct:[id number] Age/Sex: 62 / F Date of Service: 06/02/23 Loc: ED Accession Number: [id number] Procedure: XR chest 2V Ordering Provider: Jacobo Salgado P.A-C PROCEDURE: XR CHEST 2V INDICATIONS: SOB and productive cough TECHNIQUE: 2 views of the chest were acquired. COMPARISON: [facility], , XR CHEST 2V, 04/02/2022, 12:38. FINDINGS: Surgical changes and devices: Cholecystectomy clips. Lungs and pleura: Mild bilateral perihilar bronchial wall thickening. Lungs are otherwise clear. No focal pulmonary consolidation. No pleural effusions or pneumothorax. Mediastinum: Mediastinal contours are normal. Heart size is normal. Bones and chest wall: No suspicious bony abnormalities. Soft tissues appear unremarkable. Stable sclerotic lesion in the proximal humeral diaphysis with narrow zone of transition, likely a benign bone island. IMPRESSION: Mild bilateral perihilar bronchial wall thickening suggestive of reactive airways disease and/or viral pneumonia. No focal pulmonary consolidation. Dictated by: Zeinab Mcclain M.D. on 06/02/2023 at 16:27 Approved by: Zeinab Mcclain M.D. on 06/02/2023 at 16:30 [facility] Narrative Medical decision making narrative: ED course: This is a 62-year-old female presents to the emergency department due to a week of URI symptoms. Testing came back positive for RSV. Chest x-ray showed no evidence of any kind of pneumonia. Patient ready has not an albuterol inhaler as well as cough medication prescribed by her primary care provider. Requested additional medication. Oral steroids will be prescribed. Breathing treatment with DuoNeb given here in the emergency department. CC: URI symptoms Complicating co-morbidities: History of COPD. Data collected from: Previous notes Medical records reviewed: Patient was seen roughly a year ago due to a COPD exacerbation. History of COPD, smoking, hypertension, hypothyroidism. Patient was positive for influenza A. Differential considered, but not limited to: RSV, COVID, influenza, pneumonia Exam documented above, pertinent findings include: None Lab Test results independently reviewed as above. Pertinent findings: Testing came back positive for RSV Imaging studies independently reviewed: Chest x-ray unremarkable Scores Used: None MIPS Elements: None Consultations: None Treatments: Breathing treatment with DuoNeb Re-evaluations: Patient reports feeling slightly better after breathing treatment Discussion: Discussed plan with the patient was comfortable with the plan Diagnosis: RSV Disposition: see below, along with detailed discharge instructions that have been reviewed with patient as well as indications for ED re-evaluation and additional outpatient follow up <Anabel Alvarez MD - Last Filed: 06/04/23 09:35> Lab Data Labs: Lab Results 06/02/23 Range/Units 15:05 Chlamy pneumoniae PCR Not detected (Not Detect) Adenovirus (PCR) Not detected (Not Detect) B.parapertussis DNA PCR Not detected (Not Detecte) Coronavirus OC43 (PCR) Not detected (Not Detect) Coronavirus HKU1 (PCR) Not detected (Not Detect) Coronavirus 229E (PCR) Not detected (Not Detect) SARS-CoV-2 (PCR) Not detected (Not Detecte) Coronavirus NL63 (PCR) Not detected (Not Detect) Human Metapneumovir PCR Not detected (Not Detect) Influenza Type A (PCR) Not detected (Not Detect) Influenza Type B (PCR) Not detected (Not Detect) M. pneumoniae (PCR) Not detected (Not Detect) Parainfluenza 1 (PCR) Not detected (Not Detect) Parainfluenza 2 (PCR) Not detected (Not Detect) Parainfluenza 3 (PCR) Not detected (Not Detect) Parainfluenza 4 (PCR) Not detected (Not Detect) RSV (PCR) Detected H (Not Detect) Entero/Rhino (PCR) Not detected (Not Detect) Discharge Plan Departure Patient Disposition: Home Clinical Impression: Respiratory syncytial virus (RSV) Activity Restrictions/Additional Instructions: Thank you for coming to the [facility] Emergency Department today. As we discussed your testing came back positive for RSV. This is a virus which should improve over the next week or so. Please continue using your albuterol inhaler. The steroids should help with your symptoms as well. Please return to the emergency department if you develop any [ ] or any other co ncerning signs or symptoms. I hope you feel better soon. Please follow up with your primary care provider within a week if your symptoms continue. If you do not have a primary care provider please contact the [facility] Resource line at [phone]. They will ask some questions about your medical history and help you get set up with a provider in the community. Prescriptions: New prednisone 20 mg tablet 40 mg PO DAILY Qty: 10 0RF prednisone 20 mg tablet 40 mg PO DAILY Qty: 10 0RF No Action albuterol sulfate [ProAir HFA] 90 mcg/actuation HFA aerosol inhaler 2 puff INHALATION .PRN PRN (Reason: Allergic Reaction) albuterol sulfate 2.5 mg /3 mL (0.083 %) solution for nebulization 2.5 mg inhalation Q6-8H PRN (Reason: Shortness Of Breath) Rx Instructions: Uses only when needed for seasonal allergies. Advair HFA 115-21 mcg/actuation HFA aerosol inhaler 2 puff inhalation BID levothyroxine 112 mcg tablet 100 mcg PO DAILY Rx Instructions: [facility] ONLY amlodipine 5 mg tablet 5 mg PO DAILY Referrals: Solo Raymond MD [Primary Care Provider] - Stand Alone Forms: Patient Portal/API ED Sign-out <Anabel Alvarez MD - Last Filed: 06/04/23 09:35> Cosign ED Attending Cosignature Attestation: I did not see this patient. I was available all times for consultation.
--- NOTE | 2023-06-02 15:29 | DI.RAD.S_ITS ---
PROCEDURE: XR CHEST 2V INDICATIONS: SOB and productive cough TECHNIQUE: 2 views of the chest were acquired. COMPARISON: [facility], CR, XR CHEST 2V, 04/02/2022, 12:38. FINDINGS: Surgical changes and devices: Cholecystectomy clips. Lungs and pleura: Mild bilateral perihilar bronchial wall thickening. Lungs are otherwise clear. No focal pulmonary consolidation. No pleural effusions or pneumothorax. Mediastinum: Mediastinal contours are normal. Heart size is normal. Bones and chest wall: No suspicious bony abnormalities. Soft tissues appear unremarkable. Stable sclerotic lesion in the proximal humeral diaphysis with narrow zone of transition, likely a benign bone island. IMPRESSION: Mild bilateral perihilar bronchial wall thickening suggestive of reactive airways disease and/or viral pneumonia. No focal pulmonary consolidation. Dictated by: Zeinab Mcclain M.D. on 06/02/2023 at 16:27 Approved by: Zeinab Mcclain M.D. on 06/02/2023 at 16:30
[2023-06-02] MEDS: ALBUTEROL/IPRATROPIUM 3 ML AMPUL INH (15:37)
[2023-06-02 16:08] LABS: Adenovirus Not Detected (Not Detect); B. parapertussis Not Detected (Not Detecte); Bordetella pertussis Not Detected (Not Detect); Chlamydophila pneumoniae Not Detected (Not Detect); Coronavirus 229E Not Detected (Not Detect); Coronavirus HKU1 Not Detected (Not Detect); Coronavirus NL 63 Not Detected (Not Detect); Coronavirus OC43 Not Detected (Not Detect); Human Metapneumovirus Not Detected (Not Detect); Human Rhinovirus/Enterovirus Not Detected (Not Detect); Influenza A Not Detected (Not Detect); Influenza B Not Detected (Not Detect); Mycoplasma pneumoniae Not Detected (Not Detect); Parainfluenza Virus 1 Not Detected (Not Detect); Parainfluenza Virus 2 Not Detected (Not Detect); Parainfluenza Virus 3 Not Detected (Not Detect); Parainfluenza Virus 4 Not Detected (Not Detect); Respiratory Syncytial Virus Detected (Not Detect); SARS- CoV-2 Not Detected (Not Detecte)
[2023-06-02 16:53] VITALS: BP 117/59; PULSE 86; RESP 22; O2SAT 95
== END 2023-06-02 16:50 | disposition home or self-care (01) ==
PROVIDERS: Emergency Medicine; Emergency Provider Physician Assistant Medical; PCP Internal Medicine
DX: J06.9 Acute upper respiratory infection, unspecified (principal); B97.4 Respiratory syncytial virus as the cause of diseases classified elsewhere; R07.9 Chest pain, unspecified; Z20.822 Contact with and (suspected) exposure to COVID-19
CPT/HCPCS: 71046; 87633; 94640; 99283

== ENCOUNTER → 2023-08-10 13:42 | Outpatient (CLI) | payer OTHER, MEDICAID, SELFPAY ==
[2023-08-10 15:53] LABS: Alanine Aminotransferase 18 IU/L (<35); Albumin 3.8 g/dL (3.5-5.0); Albumin Globulin Ratio 1.4 (1.0-2.8); Alkaline Phosphatase 40 U/L (38-126); Aspartate Aminotransferase 22 IU/L (14-36); BUN Creatinine Ratio 29.2 (6-22); Bilirubin Total 0.5 mg/dL (0.2-1.3); Blood Urea Nitrogen 21 mg/dL (7-17); Calcium 9.2 mg/dL (8.4-10.2); Carbon Dioxide 30 mmol/L (22-32); Chloride 104 mmol/L (98-107); Estimated Glomerular Filt Rate > 60 mL/min (>60); Globulin 2.8 g/dL (1.7-4.1); Glucose 99 mg/dL (80-110); HEMOLYSIS < 15 (0-50); Potassium 4.2 mmol/L (3.4-5.1); Sodium 137 mmol/L (137-145); Total Protein 6.6 g/dL (6.3-8.2)
[2023-08-10 15:55] LABS: Add Manual Diff / Slide Review NO; Basophils Absolute Auto 100 /uL (0-100); Basophils Percent Auto 1.7 % (0-2); Eosinophils Absolute Auto 200 /uL (0-450); Eosinophils Percent Auto 3.1 % (2-4); Hematocrit 40.5 % (36-46); Hemoglobin 13.4 g/dL (12.0-16.0); Lymphocytes Absolute Auto 1600 /uL (1100-4500); Lymphocytes Percent Auto 28.4 % (25-40); Mean Corpuscular Hemoglobin 28.9 PG (26-34); Mean Corpuscular Volume 87.7 fL (80-100); Monocytes Absolute Auto 400 /uL (0-900); Monocytes Percent Auto 6.8 % (3-14); Neutrophils Absolute Auto 3400 /uL (1500-7000); Platelet Count 220 X10^3/uL (150-400); Red Blood Cell Count 4.62 X10^6/uL (4.0-5.2); Red Cell Distribution Width 13.3 % (11.6-14.8); White Blood Cell Count 5.7 X10^3/uL (4.5-11.0)
[2023-08-10 16:27] LABS: Ferritin 25 ng/mL (11-264)
[2023-08-11 20:01] LABS: HEMOLYSIS < 15 (0-50); Iron 113 ug/dL (37-170)
[2023-08-11 20:23] LABS: Percent Iron Saturation 35 % (15-50); Total Iron Binding Capacity 322 ug/dL (265-497); Transferrin 254 mg/dL (206-381)
== END ==
LOC: LAB 13:45
PROVIDERS: PCP Internal Medicine; Referring Provider Internal Medicine; Visit Provider Internal Medicine
DX: L60.3 Nail dystrophy (principal); R06.09 Other forms of dyspnea
CPT/HCPCS: 36415; 80053; 82728; 83540; 83550; 85025

== ENCOUNTER → 2023-09-09 16:21 | Outpatient (CLI) | payer OTHER, MEDICAID, SELFPAY ==
[2023-09-09 18:49] LABS: TSH w/ Reflex to FT4 0.25 uIU/mL (0.47-4.68)
[2023-09-09 19:15] LABS: Free T4, Direct Thyroxine 1.57 ng/dL (0.78-2.19)
== END ==
PROVIDERS: PCP Internal Medicine; Referring Provider Family Medicine; Visit Provider Family Medicine
DX: E03.9 Hypothyroidism, unspecified (principal); R06.09 Other forms of dyspnea; T75.89XA Other specified effects of external causes, initial encounter
CPT/HCPCS: 36415; 82175; 83655; 83825; 84439; 84443

== ENCOUNTER → 2023-12-29 12:53 | Outpatient (CLI) | payer OTHER, MEDICAID, SELFPAY ==
[2023-12-29 14:26] LABS: TSH w/ Reflex to FT4 5.59 uIU/mL (0.47-4.68)
[2023-12-29 15:24] LABS: Free T4, Direct Thyroxine 1.25 ng/dL (0.78-2.19)
== END ==
PROVIDERS: PCP Internal Medicine
DX: E03.9 Hypothyroidism, unspecified (principal)
CPT/HCPCS: 36415; 84439; 84443

== ENCOUNTER → 2024-02-07 14:03 | Outpatient (CLI) | payer OTHER, MEDICAID, SELFPAY ==
[2024-02-07 15:11] LABS: Cholesterol 161 mg/dL (140-199); HDL Cholesterol 100 mg/dL (40-60); LDL Cholesterol Calculated 50 mg/dL (<100); Triglycerides 57 mg/dL (35-150)
== END ==
PROVIDERS: PCP Internal Medicine
DX: E78.2 Mixed hyperlipidemia (principal)
CPT/HCPCS: 36415; 80061

== ENCOUNTER → 2024-03-01 16:29 | Outpatient (CLI) | payer OTHER, MEDICAID, SELFPAY ==
[2024-03-01 18:13] LABS: TSH w/ Reflex to FT4 1.74 uIU/mL (0.47-4.68)
== END ==
PROVIDERS: PCP Internal Medicine; Referring Provider Internal Medicine; Visit Provider Internal Medicine
DX: E03.9 Hypothyroidism, unspecified (principal)
CPT/HCPCS: 36415; 84443

== ENCOUNTER 2024-04-19 17:33 | Inpatient (IN) | payer OTHER, MEDICAID, SELFPAY ==
[2024-04-19] VITALS (28 sets, daily range): BP systolic 117–199; BP diastolic 57–91; PULSE 104–119; RESP 24–57; TEMP 36.3–36.7; O2SAT 82–98; BMI 22.1; BMI 21.2
--- NOTE | 2024-04-19 17:44 | EKG_ITS ---
[address] [address] [address], [place] [address] Test Date: 2024-04-19 Pat Name: Cynthia Pillai Department: Room: Gender: Female [employer]: GEORGINA : 1960 Requested By: Order Number: [id number] Reading MD: Anup Rice MD Measurements Intervals [place] Rate: 106 P: 96 OK: 140 QRS: 75 QRSD: 84 T: 84 QT: 322 QTc: 427 Interpretive Statements Sinus tachycardia Possible Left atrial enlargement Nonspecific ST and T wave abnormality Electronically Signed On 04-20-2024 6:41:53 PST by Anup Rice MD
--- NOTE | 2024-04-19 17:44 | DI.RAD.S_ITS ---
PROCEDURE: XR CHEST 1V INDICATIONS: Shortness of breath TECHNIQUE: One view of the chest was acquired. COMPARISON: [facility], , XR CHEST 2V, 06/02/2023, 15:53. FINDINGS: Surgical changes and devices: None. Lungs and pleura: Lungs are clear. No pleural effusions or pneumothorax. Mediastinum: Mediastinal contours appear normal. Heart size is normal. Bones and chest wall: No suspicious bony lesions. Overlying soft tissues appear unremarkable. IMPRESSION: No acute cardiopulmonary abnormality is seen. Approved by: Gissell Reed M.D.,Ph.D. on 04/19/2024 at 18:37
[2024-04-19 17:59] LABS: INR 0.9 (0.9-1.3); Prothrombin Time 10.4 SECONDS (9.4-12.5)
[2024-04-19] MEDS: ALBUTEROL/IPRATROPIUM 3 ML AMPUL INH ×3 (18:00→18:13)
[2024-04-19 18:03] LABS: Add Manual Diff / Slide Review NO; Basophils Absolute Auto 100 /uL (0-100); Basophils Percent Auto 1.2 % (0-2); Eosinophils Absolute Auto 300 /uL (0-450); Eosinophils Percent Auto 3.5 % (2-4); Hematocrit 46.3 % (36-46); Hemoglobin 15.3 g/dL (12.0-16.0); Lactate (Lactic Acid) 1.6 mmol/L (0.7-2.1); Lymphocytes Absolute Auto 2300 /uL (1100-4500); Lymphocytes Percent Auto 29.7 % (25-40); Mean Corpuscular Hemoglobin 29.5 PG (26-34); Mean Corpuscular Volume 89.5 fL (80-100); Monocytes Absolute Auto 500 /uL (0-900); Monocytes Percent Auto 6.2 % (3-14); Neutrophils Absolute Auto 4600 /uL (1500-7000); Neutrophils Percent Auto 59.4 % (50-75); Platelet Count 256 X10^3/uL (150-400); Red Blood Cell Count 5.17 X10^6/uL (4.0-5.2); Red Cell Distribution Width 13.2 % (11.6-14.8); White Blood Cell Count 7.7 X10^3/uL (4.5-11.0)
[2024-04-19 18:04] LABS: Alanine Aminotransferase 39 IU/L (<35); Albumin 4.2 g/dL (3.5-5.0); Albumin Globulin Ratio 1.2 (1.0-2.8); Alkaline Phosphatase 53 U/L (38-126); Aspartate Aminotransferase 39 IU/L (14-36); BUN Creatinine Ratio 18.2 (6-22); Bilirubin Total 0.3 mg/dL (0.2-1.3); Blood Urea Nitrogen 14 mg/dL (7-17); Calcium 8.7 mg/dL (8.4-10.2); Carbon Dioxide 27 mmol/L (22-32); Chloride 103 mmol/L (98-107); Estimated Glomerular Filt Rate > 60 mL/min (>60); Globulin 3.5 g/dL (1.7-4.1); Glucose 123 mg/dL (80-110); HEMOLYSIS 22 (0-50); Potassium 4.2 mmol/L (3.4-5.1); Sodium 134 mmol/L (137-145); Total Protein 7.7 g/dL (6.3-8.2)
[2024-04-19 18:15] LABS: NT-proBNP (BNP-Adult 18+) 56 pg/mL (<125); Troponin I < 0.012 ng/mL (0.01-0.034)
--- NOTE | 2024-04-19 18:16 | ED_ITS ---
HPI - General Adult General Chief complaint: Shortness of Breath/Dyspnea Stated complaint: SOB, low oxygen Time Seen by Provider: 04/19/24 17:53 Source: patient and family Mode of arrival: Wheelchair History of Present Illness HPI narrative: Patient is a 63-year-old female. History of hypertension, hypothyroidism and COPD. Not on home oxygen who is here for evaluation of 5-7 days of progressively worsening shortness of breath and cough. They did notice some mold in the boat where they stay. She denies any fevers. No lower extremity swelling. No history of CHF. She has been taking all of her medications as directed. No recent travel. No known sick contacts. Related Data Home Medications Medication Instructions Recorded Confirmed albuterol sulfate 90 mcg/actuation 2 puff inhalation .PRN PRN 02/07/20 09/09/23 aerosol inhaler (ProAir HFA) Allergic Reaction fluticasone propionate 115 2 puff inhalation BID 04/28/20 09/09/23 mcg-salmeterol 21 mcg/actuation HFA inhaler amlodipine 5 mg tablet 5 mg PO DAILY 06/02/23 09/09/23 aspirin 81 mg tablet,delayed 81 mg PO DAILY 09/09/23 09/09/23 release levothyroxine 125 mcg capsule 125 mcg PO DAILY 09/09/23 09/09/23 Allergies Allergy/AdvReac Type Severity Reaction Status Date / Time Sulfa (Sulfonamide Allergy Verified 04/19/24 17:47 Antibiotics) Review of Systems Review of Systems ROS Unobtainable: All systems reviewed & are unremarkable except as noted in HPI and below Patient History Medical History COPD (chronic obstructive pulmonary disease) Allergic rhinitis (~1969) Acquired hypothyroidism (~1989) Essential hypertension (~2009) Surgical History Anesthesia History of dental surgery (~02/11/20) S/P carpal tunnel release (~2011) S/P cholecystectomy (~2004) S/P hysterectomy (~2006) Family History Father Hypertension Brother Cancer Blind Sister Colon cancer Mother No problems noted. Brother COPD (chronic obstructive pulmonary disease) Brother Liver disease Grandmother Colon cancer Social History household members: spouse Smoking Status: Former smoker Smoking Status: Former smoker alcohol intake frequency: a few times a week Exam Initial Vital Signs Initial Vital Signs: Vital Signs Temperature 98.0 F 04/19/24 17:34 Pulse Rate 113 H 04/19/24 17:34 Respiratory Rate 32 H 04/19/24 17:34 Blood Pressure 199/91 H 04/19/24 17:34 Pulse Oximetry 87 L 04/19/24 17:34 Oxygen Delivery Method Room Air 04/19/24 17:34 Const General: cooperative and No ill appearing HENMT Head: normal to inspection Resp Effort & Inspection: cough, labored, respiratory distress and tachypneic Auscultation: diminished lung sounds and wheezes Cardio Rate: tachycardic Rhythm: regular rhythm GI Inspection: normal to inspection Neuro General: patient alert, patient awake and moves all extremities Extrem General: No edema Course Orders Ordered: ED Orders 04/19/24 17:44 XR chest 1V Stat EKG-12 Lead Stat Measure peak expiratory flow ONCE RT Consult Eval and Treat NOW 04/19/24 17:45 Lipase Stat PTT Partial Thromboplastin Guido Stat Procalcitonin Stat 04/19/24 17:48 Complete Blood Count AUTO DIFF Stat Comprehensive Metabolic Panel Stat Lactate (Lactic Acid) Stat NT-proBNP (BNP-Adult 18+) Stat Prothrombin Time INR Stat Troponin I Stat 04/19/24 17:53 EKG-12 Lead Stat 04/19/24 18:18 Respiratory Panel (Film Array) Stat 04/19/24 18:38 Blood Culture Stat Discontinued Medications Albuterol (Albuterol 2.5 Mg/3 Ml Neb (Adult)) 2.5 mg INH NOW ONE Stop: 04/19/24 18:33 Last Admin: 04/19/24 18:49 Dose: 2.5 mg Documented By: PV Albuterol/Ipratropium (Albuterol/Ipratropium 3 Ml Ampul) 3 ml INH NOW ONE Stop: 04/19/24 18:00 Last Admin: 04/19/24 18:00 Dose: 3 ml Documented By: MR Albuterol/Ipratropium (Albuterol/Ipratropium 3 Ml Ampul) 3 ml INH NOW ONE Stop: 04/19/24 18:08 Last Admin: 04/19/24 18:13 Dose: 3 ml Documented By: Albuterol/Ipratropium (Albuterol/Ipratropium 3 Ml Ampul) 3 ml INH NOW ONE Stop: 04/19/24 18:08 Last Admin: 04/19/24 18:13 Dose: 3 ml Documented By: Magnesium Sulfate (Magnesium Sulfate) 2 gm in 50 mls @ 25 mls/hr IV NOW ONE Stop: 04/19/24 20:31 Last Infusion: 04/19/24 19:06 Dose: Infused Documented By: AIDA Co-signed By: HANG Admin: 04/19/24 18:39 Dose: 25 mls/hr Documented By: AIDA Co-signed By: HANG Lorazepam (Lorazepam 2 Mg/Ml Inj) 0.5 mg IV NOW ONE Stop: 04/19/24 18:35 Last Admin: 04/19/24 18:44 Dose: 0.5 mg Documented By: AIDA Lorazepam (Lorazepam 2 Mg/Ml Inj) 0.5 mg IV NOW ONE Stop: 04/19/24 19:06 Last Admin: 04/19/24 19:20 Dose: 0.5 mg Documented By: ELVIRA Methylprednisolone (Methylprednisolone 125 Mg/2 Ml Vial) 125 mg IV NOW ONE Stop: 04/19/24 18:34 Last Admin: 04/19/24 18:41 Dose: 125 mg Documented By: AIDA Vital Signs Vital signs: Vital Signs - 8 hr 04/19/24 17:34 04/19/24 17:39 04/19/24 17:42 Temperature 98.0 F Pulse Rate 113 H 115 H Respiratory Rate 32 H Blood Pressure 199/91 H 199/91 H Pulse Oximetry 87 L 89 L Oxygen Delivery Method Room Air Oxygen Flow Rate Fraction of Inspired Oxygen 04/19/24 17:42 04/19/24 18:00 04/19/24 18:00 Temperature Pulse Rate 109 H 104 H Respiratory Rate 34 H 30 H Blood Pressure 159/79 H Pulse Oximetry 98 94 Oxygen Delivery Method Oxygen Flow Rate 3 2 Fraction of Inspired Oxygen 04/19/24 18:30 04/19/24 18:30 04/19/24 18:50 Temperature Pulse Rate 111 H 109 H Respiratory Rate 44 H 36 H Blood Pressure 162/89 H Pulse Oximetry 95 95 Oxygen Delivery Method Nasal Cannula Nasal Cannula Oxygen Flow Rate 2 2 Fraction of Inspired Oxygen 28 04/19/24 19:00 04/19/24 19:00 04/19/24 19:30 Temperature Pulse Rate 112 H 111 H Respiratory Rate 44 H 38 H Blood Pressure 162/73 H Pulse Oximetry 93 94 Oxygen Delivery Method Oxygen Flow Rate Fraction of Inspired Oxygen 04/19/24 19:31 04/19/24 19:31 04/19/24 20:00 Temperature Pulse Rate 116 H 106 H Respiratory Rate 36 H 31 H Blood Pressure 117/72 Pulse Oximetry 94 91 Oxygen Delivery Method Nasal Cannula Oxygen Flow Rate Fraction of Inspired Oxygen 04/19/24 20:30 04/19/24 20:30 04/19/24 20:35 Temperature Pulse Rate 110 H 113 H Respiratory Rate 49 H 55 H Blood Pressure 163/89 H Pulse Oximetry 93 93 Oxygen Delivery Method Oxygen Flow Rate Fraction of Inspired Oxygen 04/19/24 20:40 04/19/24 20:41 04/19/24 20:45 Temperature Pulse Rate 118 H 119 H Respiratory Rate 32 H Blood Pressure Pulse Oximetry 87 L 82 L 88 L Oxygen Delivery Method Nasal Cannula Room Air Oxygen Flow Rate 2 Fraction of Inspired Oxygen 04/19/24 20:45 Temperature Pulse Rate Respiratory Rate Blood Pressure 163/76 H Pulse Oximetry 89 L Oxygen Delivery Method Nasal Cannula Oxygen Flow Rate 3 Fraction of Inspired Oxygen Medical Decision Making Lab Data Lab results reviewed: Yes I reviewed the patient's lab results. 04/19/24 17:48 04/19/24 17:48 Labs: Lab Results 04/19/24 04/19/24 04/19/24 Range/Units 17:45 17:48 18:18 WBC 7.7 (4.5-11.0) X10^3/uL RBC 5.17 (4.0-5.2) X10^6/uL Hgb 15.3 (12.0-16.0) g/dL Hct 46.3 H (36-46) % MCV 89.5 (80-100) fL MCH 29.5 (26-34) PG MCHC 33.0 (30-36) % RDW 13.2 (11.6-14.8) % Plt Count 256 (150-400) X10^3/uL Neut % (Auto) 59.4 (50-75) % Lymph % (Auto) 29.7 (25-40) % [place] % (Auto) 6.2 (3-14) % Eos % (Auto) 3.5 (2-4) % Baso % (Auto) 1.2 (0-2) % Neut # (Auto) 4600 (4467-1609) /uL Lymph # (Auto) 2300 (4697-7597) /uL [place] # (Auto) 500 (0-900) /uL Eos # (Auto) 300 (0-450) /uL Baso # (Auto) 100 (0-100) /uL PT 10.4 (9.4-12.5) SECONDS INR 0.9 (0.9-1.3) APTT 34 (25.1-36.5) SECONDS Sodium 134 L (137-145) mmol/L Potassium 4.2 (3.4-5.1) mmol/L Chloride 103 (98-107) mmol/L Carbon Dioxide 27 (22-32) mmol/L BUN 14 (7-17) mg/dL Creatinine 0.77 (0.52-1.04) mg/dL Estimated GFR > 60 (>60) mL/min BUN/Creatinine Ratio 18.2 (6-22) Glucose 123 H (80-110) mg/dL Lactate 1.6 (0.7-2.1) mmol/L Calcium 8.7 (8.4-10.2) mg/dL Total Bilirubin 0.3 (0.2-1.3) mg/dL AST 39 H (14-36) IU/L ALT 39 H (<35) IU/L Alkaline Phosphatase 53 (38-126) U/L Troponin I < 0.012 (0.01-0.034) ng/mL NT-Pro-B Natriuret Pep 56 (<125) pg/mL Total Protein 7.7 (6.3-8.2) g/dL Albumin 4.2 (3.5-5.0) g/dL Globulin 3.5 (1.7-4.1) g/dL Albumin/Globulin Ratio 1.2 (1.0-2.8) Lipase 143 (23-300) U/L Procalcitonin 0.053 (<0.5) ng/mL Chlamy pneumoniae PCR Not detected (Not Detect) Adenovirus (PCR) Not detected (Not Detect) B. pertussis DNA (PCR) Not detected (Not Detect) B.parapertussis DNA PCR Not detected (Not Detecte) Coronavirus OC43 (PCR) Not detected (Not Detect) Coronavirus HKU1 (PCR) Not detected (Not Detect) Coronavirus 229E (PCR) Not detected (Not Detect) SARS-CoV-2 (PCR) Not detected (Not Detecte) Coronavirus NL63 (PCR) Not detected (Not Detect) Human Metapneumovir PCR Not detected (Not Detect) Influenza Type A (PCR) Not detected (Not Detect) Influenza Type B (PCR) Not detected (Not Detect) M. pneumoniae (PCR) Not detected (Not Detect) Parainfluenza 1 (PCR) Not detected (Not Detect) Parainfluenza 2 (PCR) Not detected (Not Detect) Parainfluenza 3 (PCR) Not detected (Not Detect) Parainfluenza 4 (PCR) Detected H (Not Detect) RSV (PCR) Not detected (Not Detect) Entero/Rhino (PCR) Not detected (Not Detect) Urine Dip Bedside Urine Glucose Negative Bedside Urine Bilirubin - Negative Bedside Urine Ketone - Negative Urine Specific [place] 1.015 Bedside Urine Occult Blood - Negative Bedside Urine pH 5.5 Bedside Urine Protein - Negative Bedside Urine Urobilinogen - Negative Bedside Urine Nitrite - Negative Bedside Urine Leukocytes - Negative Esterase Point of care testing: Urine Dip Bedside Urine Glucose Negative Bedside Urine Bilirubin - Negative Bedside Urine Ketone - Negative Urine Specific [place] 1.015 Bedside Urine Occult Blood - Negative Bedside Urine pH 5.5 Bedside Urine Protein - Negative Bedside Urine Urobilinogen - Negative Bedside Urine Nitrite - Negative Bedside Urine Leukocytes - Negative Esterase Imaging Data Chest x-ray: Radiologist's Impression: PROCEDURE: XR CHEST 1V INDICATIONS: Shortness of breath TECHNIQUE: One view of the chest was acquired. COMPARISON: [facility], , XR CHEST 2V, 06/02/2023, 15:53. FINDINGS: Surgical changes and devices: None. Lungs and pleura: Lungs are clear. No pleural effusions or pneumothorax. Mediastinum: Mediastinal contours appear normal. Heart size is normal. Bones and chest wall: No suspicious bony lesions. Overlying soft tissues appear unremarkable. IMPRESSION: No acute cardiopulmonary abnormality is seen. ECG Data Attestation: I personally reviewed and interpreted this ECG as follows: Interpretation: Sinus tachycardia Ventricular rate of [address] T wave changes MDM Narrative Medical decision making narrative: Patient received multiple nebulizer treatments which did improve her wheezing. She still remained tachypneic and tachycardic. Became very anxious from the shortness of breath and also most likely the albuterol. Was given Ativan for this which did seem to help. Chest x-ray shows no signs of pneumonia. She was positive for parainfluenza for which most likely is triggering her symptoms with underlying COPD. She was given 125 mg of Solu-Medrol. He was also given magnesium. Patient was maintaining her oxygen saturations greater than 90% for short time on room air however when she got up to go use the restroom she became very tachypneic and hypoxic into the mid 80s. She was placed back on oxygen. Patient does require admission to the hospital for respiratory support. Discussed the case with Dr. Lemus hospitalist on-call who will admit. Discussed the need for admission with the patient who expressed understanding and agreement. Discharge Plan Departure Patient Disposition: Admitted As Inpatient Clinical Impression: COPD (chronic obstructive pulmonary disease), Infection due to parainfluenza virus 4, Hypoxia, Bronchitis Admit Date/Time: 04/19/24 21:00 Admit Provider: Isaías Obando
[2024-04-19 18:21] LABS: PTT Partial Thromboplastin Tim 34 SECONDS (25.1-36.5)
--- NOTE | 2024-04-19 18:22 | PC.NURSE ---
Pt reports 7 days of shortness of breath. No fever. No N/V/D. Chest pain when coughs. White, sticky phlegm. Pt reports runny nose as well.
[2024-04-19 18:25] LABS: Lipase 143 U/L (23-300)
[2024-04-19] MEDS: MAGNESIUM SULFATE 2 GM/50 ML PIGGYBACK IV (18:39)
[2024-04-19] MEDS: methylPREDNISolone 125 MG/2 ML VIAL IV (18:41)
[2024-04-19 18:42] LABS: Procalcitonin 0.053 ng/mL (<0.5)
[2024-04-19] MEDS: LORazepam 2 MG/ML INJ 0.5 MG IV ×2 (18:44→19:20)
[2024-04-19] MEDS: ALBUTEROL 2.5 MG/3 ML NEB (ADULT) INH (18:49)
[2024-04-19 19:14] LABS: Adenovirus Not Detected (Not Detect); B. parapertussis Not Detected (Not Detecte); Bordetella pertussis Not Detected (Not Detect); Chlamydophila pneumoniae Not Detected (Not Detect); Coronavirus 229E Not Detected (Not Detect); Coronavirus HKU1 Not Detected (Not Detect); Coronavirus NL 63 Not Detected (Not Detect); Coronavirus OC43 Not Detected (Not Detect); Human Metapneumovirus Not Detected (Not Detect); Human Rhinovirus/Enterovirus Not Detected (Not Detect); Influenza A Not Detected (Not Detect); Influenza B Not Detected (Not Detect); Mycoplasma pneumoniae Not Detected (Not Detect); Parainfluenza Virus 1 Not Detected (Not Detect); Parainfluenza Virus 2 Not Detected (Not Detect); Parainfluenza Virus 3 Not Detected (Not Detect); Parainfluenza Virus 4 Detected (Not Detect); Respiratory Syncytial Virus Not Detected (Not Detect); SARS- CoV-2 Not Detected (Not Detecte)
--- NOTE | 2024-04-19 19:27 | PC.NURSE ---
Addendum entered by Joya López R.N. 04/19/24 19:49: Pt states that she is feeling better after lorazepam and would like to start neb tx again. Original Note: Assumed care of pt at 1900. Pt anxious and jittery. Requested to stop neb tx until lorazepam begins to take effect. RT notified Dr Balderas and ok'd plan. Lung sounds tight upon auscultation, but pt able to speak in full sentences. A&Ox4.
--- NOTE | 2024-04-19 20:48 | PC.NURSE ---
Pt up to bsc and o2 sat 89% on 2L. Pt back in bed and pursed lip breathing and tripod position. tachypneic. Increased o2 to 3L and o2 sat 92%.
[2024-04-19] MEDS: methylPREDNISolone 125 MG/2 ML VIAL 60 MG IV (23:57)
[2024-04-20] MEDS: AMLODIPINE 5 MG TABLET PO ×2 (00:42→21:10)
[2024-04-20] MEDS: guaiFENesin ER 600 MG TAB PO (00:42)
--- NOTE | 2024-04-20 01:33 | PM.HP.1 ---
History of Present Illness History of Present Illness Date Patient Seen: 04/20/24 Time Patient Seen: 01:33 Chief complaint: SOB, low oxygen Narrative: THe pt is a 63 yo who reports that she started having congestions, SOB, cough that was productive of cloudy sputum about 2 weeks ago. Since the onset her dyspnea has gotten worse,to the point she is SOB with small distances, in the Er her SaO2 was 85% on RA, she is not normally on oxygen. She quit smoking 2 years ago but was a life long smoker before then. There has been no fevers, chills, hemoptysis, N/V, or chronic cough. She does live [place] a boat and has noticed some mold that she blames her symptoms on . [facility] Medical History COPD (chronic obstructive pulmonary disease) Allergic rhinitis (~1969) Acquired hypothyroidism (~1989) Essential hypertension (~2009) Surgical History Anesthesia History of dental surgery (~02/11/20) S/P carpal tunnel release (~2011) S/P cholecystectomy (~2004) S/P hysterectomy (~2006) Family History Father Hypertension Brother Cancer Blind Sister Colon cancer Mother No problems noted. Brother COPD (chronic obstructive pulmonary disease) Brother Liver disease Grandmother Colon cancer Social History household members: spouse Smoking Status: Former smoker Meds Home Medications and Allergies Home Medications Medication Instructions Recorded Confirmed Type albuterol sulfate 90 mcg/actuation 2 puff inhalation .PRN PRN 02/07/20 04/19/24 History aerosol inhaler (ProAir HFA) Allergic Reaction amlodipine 5 mg tablet 5 mg PO DAILY 06/02/23 04/19/24 History aspirin 81 mg tablet,delayed 81 mg PO DAILY 09/09/23 04/19/24 History release levothyroxine 125 mcg capsule 125 mcg PO DAILY 09/09/23 04/19/24 History atorvastatin 40 mg tablet 40 mg PO DAILY 04/19/24 04/19/24 History Allergies Allergy/AdvReac Type Severity Reaction Status Date / Time Sulfa (Sulfonamide Allergy Verified 04/19/24 17:47 Antibiotics) Exam Vital Signs (past 8 hours): - 04/19/24 17:34 04/19/24 17:39 04/19/24 17:42 Temperature 98.0 F Pulse Rate 113 H 115 H Respiratory Rate 32 H Blood Pressure 199/91 H 199/91 H Pulse Oximetry 87 L 89 L Oxygen Delivery Method Room Air Oxygen Flow Rate Fraction of Inspired Oxygen 04/19/24 17:42 04/19/24 18:00 04/19/24 18:00 Temperature Pulse Rate 109 H 104 H Respiratory Rate 34 H 30 H Blood Pressure 159/79 H Pulse Oximetry 98 94 Oxygen Delivery Method Oxygen Flow Rate 3 2 Fraction of Inspired Oxygen 04/19/24 18:30 04/19/24 18:30 04/19/24 18:50 Temperature Pulse Rate 111 H 109 H Respiratory Rate 44 H 36 H Blood Pressure 162/89 H Pulse Oximetry 95 95 Oxygen Delivery Method Nasal Cannula Nasal Cannula Oxygen Flow Rate 2 2 Fraction of Inspired Oxygen 28 04/19/24 19:00 04/19/24 19:00 04/19/24 19:30 Temperature Pulse Rate 112 H 111 H Respiratory Rate 44 H 38 H Blood Pressure 162/73 H Pulse Oximetry 93 94 Oxygen Delivery Method Oxygen Flow Rate Fraction of Inspired Oxygen 04/19/24 19:31 04/19/24 19:31 04/19/24 20:00 Temperature Pulse Rate 116 H 106 H Respiratory Rate 36 H 31 H Blood Pressure 117/72 Pulse Oximetry 94 91 Oxygen Delivery Method Nasal Cannula Oxygen Flow Rate Fraction of Inspired Oxygen 04/19/24 20:30 04/19/24 20:30 04/19/24 20:35 Temperature Pulse Rate 110 H 113 H Respiratory Rate 49 H 55 H Blood Pressure 163/89 H Pulse Oximetry 93 93 Oxygen Delivery Method Oxygen Flow Rate Fraction of Inspired Oxygen 04/19/24 20:40 04/19/24 20:41 04/19/24 20:45 Temperature Pulse Rate 118 H 119 H Respiratory Rate 32 H Blood Pressure Pulse Oximetry 87 L 82 L 88 L Oxygen Delivery Method Nasal Cannula Room Air Oxygen Flow Rate 2 Fraction of Inspired Oxygen 04/19/24 20:45 04/19/24 20:50 04/19/24 20:55 Temperature Pulse Rate 112 H 114 H Respiratory Rate 51 H 31 H Blood Pressure 163/76 H Pulse Oximetry 89 L 95 95 Oxygen Delivery Method Nasal Cannula Nasal Cannula Oxygen Flow Rate 3 3 Fraction of Inspired Oxygen 04/19/24 21:00 04/19/24 21:00 04/19/24 21:05 Temperature Pulse Rate 112 H 112 H Respiratory Rate 31 H 44 H Blood Pressure 154/57 H Pulse Oximetry 94 95 Oxygen Delivery Method Oxygen Flow Rate Fraction of Inspired Oxygen 04/19/24 21:10 04/19/24 21:15 04/19/24 21:20 Temperature Pulse Rate 112 H 110 H 109 H Respiratory Rate 57 H 31 H 31 H Blood Pressure Pulse Oximetry 95 95 95 Oxygen Delivery Method Oxygen Flow Rate Fraction of Inspired Oxygen 04/19/24 21:25 04/19/24 21:30 04/19/24 21:30 Temperature Pulse Rate 107 H 106 H Respiratory Rate 31 H 32 H Blood Pressure 131/60 Pulse Oximetry 96 96 Oxygen Delivery Method Oxygen Flow Rate Fraction of Inspired Oxygen 04/19/24 21:35 04/19/24 21:40 04/19/24 21:45 Temperature Pulse Rate 108 H 106 H 105 H Respiratory Rate 30 H 30 H 31 H Blood Pressure Pulse Oximetry 95 96 96 Oxygen Delivery Method Oxygen Flow Rate Fraction of Inspired Oxygen 04/19/24 22:41 04/19/24 22:43 Temperature 97.3 F L Pulse Rate 112 H Respiratory Rate 24 Blood Pressure 136/71 Pulse Oximetry 93 Oxygen Delivery Method Nasal Cannula Oxygen Flow Rate 3 Fraction of Inspired Oxygen Fraction of Inspired Oxygen 28 SaO2/FiO2 Ratio 339 Oxygen Delivery Method Nasal Cannula Oxygen Flow Rate 3 Const General: cooperative and comfortable Resp Auscultation: wheezes Cardio Rate: regular rate Rhythm: regular rhythm GI Inspection: normal to inspection Auscultation: normal bowel sounds Extrem General: no clubbing, cyanosis or edema Objective Labs 04/19/24 17:48 04/19/24 17:48 Labs: Laboratory Results - last 24 hr 04/19/24 04/19/24 04/19/24 17:45 17:48 18:18 WBC 7.7 RBC 5.17 Hgb 15.3 Hct 46.3 H MCV 89.5 MCH 29.5 MCHC 33.0 RDW 13.2 Plt Count 256 Neut % (Auto) 59.4 Lymph % (Auto) 29.7 [place] % (Auto) 6.2 Eos % (Auto) 3.5 Baso % (Auto) 1.2 Neut # (Auto) 4600 Lymph # (Auto) 2300 [place] # (Auto) 500 Eos # (Auto) 300 Baso # (Auto) 100 PT 10.4 INR 0.9 APTT 34 Sodium 134 L Potassium 4.2 Chloride 103 Carbon Dioxide 27 BUN 14 Creatinine 0.77 Estimated GFR > 60 BUN/Creatinine Ratio 18.2 Glucose 123 H Lactate 1.6 Calcium 8.7 Total Bilirubin 0.3 AST 39 H ALT 39 H Alkaline Phosphatase 53 Troponin I < 0.012 NT-Pro-B Natriuret Pep 56 Total Protein 7.7 Albumin 4.2 Globulin 3.5 Albumin/Globulin Ratio 1.2 Lipase 143 Procalcitonin 0.053 Chlamy pneumoniae PCR Not detected Adenovirus (PCR) Not detected B. pertussis DNA (PCR) Not detected B.parapertussis DNA PCR Not detected Coronavirus OC43 (PCR) Not detected Coronavirus HKU1 (PCR) Not detected Coronavirus 229E (PCR) Not detected SARS-CoV-2 (PCR) Not detected Coronavirus NL63 (PCR) Not detected Human Metapneumovir PCR Not detected Influenza Type A (PCR) Not detected Influenza Type B (PCR) Not detected M. pneumoniae (PCR) Not detected Parainfluenza 1 (PCR) Not detected Parainfluenza 2 (PCR) Not detected Parainfluenza 3 (PCR) Not detected Parainfluenza 4 (PCR) Detected H RSV (PCR) Not detected Entero/Rhino (PCR) Not detected Assessment & Plan Assessment & Plan narrative: 1. COPD exacerbations- I have discussed the pt's symtoms, labs and imaging with the Er provider and agree with the decision for admission. WIll start the pt on solumedrol, breathing tx of DuoNeb and albuterol prn. I have reviewed the labs, and will repeat in am, CXR reviewed showing no acute infiltrates. Time-Based Coding :: [TOTAL MINUTES] spent with patient and on the chart (including review of chart, obtaining history, exam, reviewing outside data, placing orders, documenting exam and treatment plan, and counseling patient) on [DATE].
[2024-04-20 02:00] VITALS: BP 112/70; PULSE 101; RESP 22; TEMP 36.2; O2SAT 96
[2024-04-20] MEDS: methylPREDNISolone 125 MG/2 ML VIAL 60 MG IV ×4 (03:57→21:09)
[2024-04-20 06:24] LABS: Add Manual Diff / Slide Review NO; Basophils Absolute Auto 0 /uL (0-100); Basophils Percent Auto 0.3 % (0-2); Eosinophils Absolute Auto 0 /uL (0-450); Hematocrit 42.3 % (36-46); Hemoglobin 13.9 g/dL (12.0-16.0); Lymphocytes Absolute Auto 800 /uL (1100-4500); Lymphocytes Percent Auto 12.1 % (25-40); Mean Corpuscular HGB Conc 32.9 % (30-36); Mean Corpuscular Hemoglobin 29.2 PG (26-34); Mean Corpuscular Volume 88.8 fL (80-100); Monocytes Absolute Auto 100 /uL (0-900); Monocytes Percent Auto 0.8 % (3-14); Neutrophils Absolute Auto 6000 /uL (1500-7000); Neutrophils Percent Auto 86.8 % (50-75); Platelet Count 262 X10^3/uL (150-400); Red Blood Cell Count 4.76 X10^6/uL (4.0-5.2); Red Cell Distribution Width 13.3 % (11.6-14.8); White Blood Cell Count 6.9 X10^3/uL (4.5-11.0)
[2024-04-20 06:37] LABS: BUN Creatinine Ratio 24.2 (6-22); Blood Urea Nitrogen 16 mg/dL (7-17); Carbon Dioxide 27 mmol/L (22-32); Chloride 101 mmol/L (98-107); Estimated Glomerular Filt Rate > 60 mL/min (>60); Glucose 150 mg/dL (80-110); HEMOLYSIS < 15 (0-50); Potassium 4.6 mmol/L (3.4-5.1); Sodium 134 mmol/L (137-145)
[2024-04-20 06:44] LABS: NT-proBNP (BNP-Adult 18+) 118 pg/mL (<125)
[2024-04-20] MEDS: LEVOTHYROXINE 125 MCG TABLET PO (06:52)
--- NOTE | 2024-04-20 07:39 | P.PN_ITS ---
Subjective Subjective Interval history: From night doctor: The patient is a 63 yo who reports that she started having congestions, SOB, cough that was productive of cloudy sputum about 2 weeks ago. Since the onset her dyspnea has gotten worse,to the point she is SOB with small distances, in the Er her SaO2 was 85% on RA, she is not normally on oxygen. She quit smoking 2 years ago but was a life long smoker before then. There has been no fevers, chills, hemoptysis, N/V, or chronic cough. She does live on a boat and has noticed some mold that she blames her symptoms on . S: She has been ill for several days. She would rhinorrhea and a cough. The cough has been intermittently productive. No sore throat. No fevers. She did test positive for influenza A and was planning on getting and vaccinate in the next week to 2 weeks. She lives locally with her , on their boat. Exam Vital Signs (past 8 hours): - 04/20/24 02:00 Temperature 97.2 F L Pulse Rate 101 H Respiratory Rate 22 Blood Pressure 112/70 Pulse Oximetry 96 Oxygen Flow Rate 3 Fraction of Inspired Oxygen 28 SaO2/FiO2 Ratio 339 Oxygen Delivery Method Nasal Cannula Oxygen Flow Rate 3 Narrative Exam Narrative: NAD, alert and oriented. Fluent speech. Lungs are notable for globally diminished breath sounds, expiratory wheezing and prolonged expiratory phase. Normal rate and effort of breathing are noted. Heart is regular, no murmur gallop or rub. Abdomen is soft, non distended. Extremities are free of edema. Objective Imaging Chest x-ray: My impression: Hyperinflated lungs, no infiltrate. Radiologist's impression: No acute cardiopulmonary abnormality is seen. Labs 04/20/24 05:50 04/20/24 05:50 Labs: Laboratory Results - last 24 hr 04/19/24 04/19/24 04/19/24 17:45 17:48 18:18 WBC 7.7 RBC 5.17 Hgb 15.3 Hct 46.3 H MCV 89.5 MCH 29.5 MCHC 33.0 RDW 13.2 Plt Count 256 Neut % (Auto) 59.4 Lymph % (Auto) 29.7 [place] % (Auto) 6.2 Eos % (Auto) 3.5 Baso % (Auto) 1.2 Neut # (Auto) 4600 Lymph # (Auto) 2300 [place] # (Auto) 500 Eos # (Auto) 300 Baso # (Auto) 100 PT 10.4 INR 0.9 APTT 34 Sodium 134 L Potassium 4.2 Chloride 103 Carbon Dioxide 27 BUN 14 Creatinine 0.77 Estimated GFR > 60 BUN/Creatinine Ratio 18.2 Glucose 123 H Lactate 1.6 Calcium 8.7 Total Bilirubin 0.3 AST 39 H ALT 39 H Alkaline Phosphatase 53 Troponin I < 0.012 NT-Pro-B Natriuret Pep 56 Total Protein 7.7 Albumin 4.2 Globulin 3.5 Albumin/Globulin Ratio 1.2 Lipase 143 Procalcitonin 0.053 Chlamy pneumoniae PCR Not detected Adenovirus (PCR) Not detected B. pertussis DNA (PCR) Not detected B.parapertussis DNA PCR Not detected Coronavirus OC43 (PCR) Not detected Coronavirus HKU1 (PCR) Not detected Coronavirus 229E (PCR) Not detected SARS-CoV-2 (PCR) Not detected Coronavirus NL63 (PCR) Not detected Human Metapneumovir PCR Not detected Influenza Type A (PCR) Not detected Influenza Type B (PCR) Not detected M. pneumoniae (PCR) Not detected Parainfluenza 1 (PCR) Not detected Parainfluenza 2 (PCR) Not detected Parainfluenza 3 (PCR) Not detected Parainfluenza 4 (PCR) Detected H RSV (PCR) Not detected Entero/Rhino (PCR) Not detected 04/20/24 05:50 WBC 6.9 RBC 4.76 Hgb 13.9 Hct 42.3 MCV 88.8 MCH 29.2 MCHC 32.9 RDW 13.3 Plt Count 262 Neut % (Auto) 86.8 H D Lymph % (Auto) 12.1 L [place] % (Auto) 0.8 L Eos % (Auto) 0.0 L Baso % (Auto) 0.3 Neut # (Auto) 6000 Lymph # (Auto) 800 L [place] # (Auto) 100 Eos # (Auto) 0 Baso # (Auto) 0 PT INR APTT Sodium 134 L Potassium 4.6 Chloride 101 Carbon Dioxide 27 BUN 16 Creatinine 0.66 Estimated GFR > 60 BUN/Creatinine Ratio 24.2 H Glucose 150 H Lactate Calcium 9.0 Total Bilirubin AST ALT Alkaline Phosphatase Troponin I NT-Pro-B Natriuret Pep 118 Total Protein Albumin Globulin Albumin/Globulin Ratio Lipase Procalcitonin Chlamy pneumoniae PCR Adenovirus (PCR) B. pertussis DNA (PCR) B.parapertussis DNA PCR Coronavirus OC43 (PCR) Coronavirus HKU1 (PCR) Coronavirus 229E (PCR) SARS-CoV-2 (PCR) Coronavirus NL63 (PCR) Human Metapneumovir PCR Influenza Type A (PCR) Influenza Type B (PCR) M. pneumoniae (PCR) Parainfluenza 1 (PCR) Parainfluenza 2 (PCR) Parainfluenza 3 (PCR) Parainfluenza 4 (PCR) RSV (PCR) Entero/Rhino (PCR) [facility] Medical History COPD (chronic obstructive pulmonary disease) Allergic rhinitis (~1969) Acquired hypothyroidism (~1989) Essential hypertension (~2009) Surgical History Anesthesia History of dental surgery (~02/11/20) S/P carpal tunnel release (~2011) S/P cholecystectomy (~2004) S/P hysterectomy (~2006) Family History Father Hypertension Brother Cancer Blind Sister Colon cancer Mother No problems noted. Brother COPD (chronic obstructive pulmonary disease) Brother Liver disease Grandmother Colon cancer Social History household members: spouse Smoking Status: Former smoker Assessment & Plan Assessment & Plan narrative: 1. COPD exacerbations, present on admission and active. 2. Acute hypoxic respiratory failure, present on admission and active. 3. Influenza a URI, present on admission and active. 4. Hypertension, present on admission and stable. 5 Hypothyroidism, present on admission and stable. PLAN: -Tamiflu -continue steroids and bronchodilators -resume baseline hypertension and thyroid medications -wean oxygen as able. Anticipate a 2nd midnight of hospital level care for COPD exacerbation with acute hypoxic respiratory failure. Full code is proxy decision maker. FELICIANO is 12/07. If breathing improved substantially, and she was able to come off from oxygen. Time-Based Coding :: [TOTAL MINUTES] spent with patient and on the chart (including review of chart, obtaining history, exam, reviewing outside data, placing orders, documenting exam and treatment plan, and counseling patient) on [DATE].
[2024-04-20 08:00] VITALS: BP 147/79; PULSE 98; RESP 18; TEMP 35.9; O2SAT 96
[2024-04-20] MEDS: ENOXAPARIN 40 MG/0.4 ML SYRINGE SUBCUT (09:12)
[2024-04-20] MEDS: ASPIRIN EC 81 MG TABLET PO (09:12)
[2024-04-20] MEDS: AZITHROMYCIN 250 MG TABLET 500 MG PO (09:12)
[2024-04-20] MEDS: ALBUTEROL/IPRATROPIUM 3 ML AMPUL INH ×3 (09:29→19:47)
[2024-04-20 09:47] VITALS: PULSE 98; RESP 24; O2SAT 94
[2024-04-20] MEDS: LORazepam 1 MG TABLET PO ×2 (11:18→19:43)
[2024-04-20 14:00] VITALS: BP 117/59; PULSE 108; RESP 21; TEMP 36.5; O2SAT 93
--- NOTE | 2024-04-20 16:06 | CM.DANOTE ---
Initial DCP Assessment Note Pt is a 63 yo female, currently living on a boat with spouse in [facility], arrives with SOB, feeling ill, congestion, admitted for management of parainfluenza virus. FELICIANO 04/21 PCP: Solo Raymond Payer: Dario/KAUSHIK Reviewed chart, pt discussed in multidisciplinary rounds this morning. Patient lives independently with sp on their boat. Patient anticipates returning there. No barriers identified at this time to patient's safe discharge home w/sp to assist as needed. CM team will plan to follow clinical course closely in case any DC needs or concerns arise. FOUZIA Huff Discharge Planning/Care Management CM Discharge Assessment Start: 04/20/24 16:05 Freq: Status: Active Protocol: Document 04/20/24 16:05 DANIELLE (Rec: 04/20/24 16:06 DANIELLE [id number]) Discharge Planning Assessment Assigned Police Officer FOUZIA Pittman DPOA/Assigned Designee Name Paulo Jenkins, spouse Contact Information [phone] Advance Directives? No History Provided By Patient,Medical Record Prior Living Arrangements Other Comment Lives on boat in [facility] Household Members spouse Type of transporation used prior to Drives own vehicle admit Independent with ADL's Yes Is patient alert and oriented? Yes Barriers to Discharge No Discharge Plan Home Transportation Arrangement Spouse Referrals Initiated None needed
[2024-04-20 19:00] VITALS: BP 129/77; PULSE 111; RESP 20; TEMP 36.4; O2SAT 94
[2024-04-21] VITALS (7 sets, daily range): BP systolic 130–140; BP diastolic 67–82; PULSE 88–110; RESP 18–24; TEMP 36–36.6; O2SAT 21–97
[2024-04-21] MEDS: methylPREDNISolone 125 MG/2 ML VIAL 60 MG IV ×4 (02:51→21:08)
--- NOTE | 2024-04-21 05:06 | PC.NURSE ---
04/20 1945: Patient found sitting on bed visually short of breath, heart rate in 120s. Patient had gone to bathroom without nasal cannula on, stated she had been doing that all day. By the time this RN got in room O2 sat was 94%. Patient did state it felt like an anxiety attack along with being short of breathe. Patient visually looking frightened of situation. Patient able to calm down with reassurance, update plan of care to only use bedside commode and with staff to decrease exertion. This RN administered PO ativan, heart rate eventually came down to 80s at rest, patient stated feeling better.
[2024-04-21] MEDS: LEVOTHYROXINE 125 MCG TABLET PO (06:04)
[2024-04-21] MEDS: AZITHROMYCIN 250 MG TABLET 500 MG PO (08:17)
[2024-04-21] MEDS: ENOXAPARIN 40 MG/0.4 ML SYRINGE SUBCUT (08:17)
[2024-04-21] MEDS: ASPIRIN EC 81 MG TABLET PO (08:17)
[2024-04-21] MEDS: guaiFENesin ER 600 MG TAB PO ×2 (08:17→21:30)
[2024-04-21] MEDS: ALBUTEROL/IPRATROPIUM 3 ML AMPUL INH ×3 (09:22→21:00)
[2024-04-21] MEDS: LORazepam 1 MG TABLET PO ×3 (09:49→21:08)
--- NOTE | 2024-04-21 13:11 | PM.PN.1 ---
Subjective Subjective Date Patient Seen: 04/21/24 Time Patient Seen: 07:45 Interval history: Narrative: The patient is a 63 yo who reports that she started having congestions, SOB, cough that was productive of cloudy sputum about 2 weeks ago. Since the onset her dyspnea has gotten worse,to the point she is SOB with small distances, in the Er her SaO2 was 85% on RA, she is not normally on oxygen. She quit smoking 2 years ago but was a life long smoker before then. There has been no fevers, chills, hemoptysis, N/V, or chronic cough. She does live on a boat and has noticed some mold that she blames her symptoms on . S: She states she is feeling better with decreasing coughing, though still short of breath with minimal exertion, still requiring 2 L of nasal cannula oxygen with oxygen saturation 93%. She has been ill for several days. She would rhinorrhea and a cough. The cough has been intermittently productive. No sore throat. No fevers. She did test positive for parainfluenza and was planning on getting influenza vaccination in the next week to 2 weeks. She lives locally with her , on their boat. Exam Vital Signs (past 8 hours): - 04/21/24 08:00 04/21/24 09:00 04/21/24 09:22 Temperature 96.8 F L Pulse Rate 102 H 103 H Respiratory Rate 20 20 Blood Pressure 136/67 Pulse Oximetry 21 L 93 Oxygen Delivery Method Nasal Cannula Nasal Cannula Oxygen Flow Rate 3 2 Fraction of Inspired Oxygen 24 SaO2/FiO2 Ratio 391 Oxygen Delivery Method Nasal Cannula Oxygen Flow Rate 2 Narrative Exam Narrative: NAD, alert and oriented. Fluent speech. Frequent vigorous coughing. Lungs are notable for globally diminished breath sounds, expiratory wheezing and prolonged expiratory phase. Normal rate and effort of breathing are noted. Heart is regular, no murmur gallop or rub. Abdomen is soft, non distended. Extremities are free of edema. Objective Labs 04/20/24 05:50 04/20/24 05:50 [facility] Medical History COPD (chronic obstructive pulmonary disease) Allergic rhinitis (~1969) Acquired hypothyroidism (~1989) Essential hypertension (~2009) Surgical History Anesthesia History of dental surgery (~02/11/20) S/P carpal tunnel release (~2011) S/P cholecystectomy (~2004) S/P hysterectomy (~2006) Family History Father Hypertension Brother Cancer Blind Sister Colon cancer Mother No problems noted. Brother COPD (chronic obstructive pulmonary disease) Brother Liver disease Grandmother Colon cancer Social History household members: spouse Smoking Status: Former smoker Assessment & Plan Assessment & Plan narrative: 1. COPD exacerbations, present on admission and active. 2. Acute hypoxic respiratory failure, present on admission and active. 3. Parainfluenza URI, present on admission and active. 4. Hypertension, present on admission and stable. 5 Hypothyroidism, present on admission and stable. PLAN: -continue steroids and bronchodilators -azithromycin x 3 days -continue baseline hypertension and thyroid medications -wean oxygen as able. Anticipate a 2nd midnight of hospital level care for COPD exacerbation with acute hypoxic respiratory failure. Full code is proxy decision maker. FELICIANO is 04/22. If breathing improved substantially, and she is able to come off from oxygen. PROFEE Charge codes Subsequent inpatient/observation care: [id number]
[2024-04-21] MEDS: ATORVASTATIN 20 MG TABLET 40 MG PO (21:07)
[2024-04-21] MEDS: AMLODIPINE 5 MG TABLET PO (21:08)
[2024-04-22] VITALS (8 sets, daily range): BP systolic 154–163; BP diastolic 79–87; PULSE 91–116; RESP 18–20; TEMP 35.5–36.4; O2SAT 93–98
[2024-04-22] MEDS: methylPREDNISolone 125 MG/2 ML VIAL 60 MG IV ×4 (03:31→21:29)
[2024-04-22] MEDS: LEVOTHYROXINE 125 MCG TABLET PO (06:12)
[2024-04-22] MEDS: LORazepam 1 MG TABLET PO ×3 (06:12→21:29)
--- NOTE | 2024-04-22 06:45 | PC.NURSE ---
pt alert and oriented at the beginning of the shift. getting out bed without asking for help. Pt gets sob with any activity, oxygen saturation goes down to low 80's, oxygen saturation go up once patient is back in bed. Pt currently on 1L NC. pt states I feel scare because at times, I just can't breath. pt needed ativan po twice tonight.
[2024-04-22] MEDS: ALBUTEROL/IPRATROPIUM 3 ML AMPUL INH ×3 (07:53→19:39)
[2024-04-22] MEDS: ASPIRIN EC 81 MG TABLET PO (08:51)
[2024-04-22] MEDS: ENOXAPARIN 40 MG/0.4 ML SYRINGE SUBCUT (08:51)
[2024-04-22] MEDS: AZITHROMYCIN 250 MG TABLET 500 MG PO (08:51)
--- NOTE | 2024-04-22 12:00 | PM.PN.1 ---
Subjective Subjective Date Patient Seen: 04/22/24 Time Patient Seen: 09:25 Interval history: Narrative: The patient is a 63 yo who reports that she started having congestions, SOB, cough that was productive of cloudy sputum about 2 weeks ago. Since the onset her dyspnea has gotten worse,to the point she is SOB with small distances, in the Er her SaO2 was 85% on RA, she is not normally on oxygen. She quit smoking 2 years ago but was a life long smoker before then. There has been no fevers, chills, hemoptysis, N/V, or chronic cough. She does live on a boat and has noticed some mold that she blames her symptoms on . S: She states she is feeling better with decreasing coughing, though still short of breath with minimal exertion, still requiring 2 L of nasal cannula oxygen with oxygen saturation 90-93%. She has been ill for several days. She has had rhinorrhea and a cough. The cough has been intermittently productive. No sore throat. No fevers. She did test positive for parainfluenza and was planning on getting influenza vaccination in the next week to 2 weeks. She lives locally with her , on their boat. Exam Vital Signs (past 8 hours): - 04/22/24 07:00 04/22/24 07:57 04/22/24 08:00 Temperature 95.9 F L Pulse Rate 112 H 91 H Respiratory Rate 18 19 Blood Pressure 154/84 H Pulse Oximetry 97 95 Oxygen Delivery Method Nasal Cannula Nasal Cannula Oxygen Flow Rate 1 7 Fraction of Inspired Oxygen 24 SaO2/FiO2 Ratio 391 Oxygen Delivery Method Nasal Cannula Oxygen Flow Rate 7 Narrative Exam Narrative: NAD, alert and oriented. Fluent speech. Frequent vigorous coughing. Lungs are notable for globally diminished breath sounds, expiratory wheezing and prolonged expiratory phase. Normal rate and effort of breathing are noted. Heart is regular, no murmur gallop or rub. Abdomen is soft, non distended. Extremities are free of edema. Objective Labs 04/20/24 05:50 04/20/24 05:50 [facility] Medical History Acquired hypothyroidism (~1989) Allergic rhinitis (~1970) COPD (chronic obstructive pulmonary disease) Essential hypertension (~2009) Surgical History Anesthesia History of dental surgery (~02/11/20) S/P carpal tunnel release (~2011) S/P cholecystectomy (~2004) S/P hysterectomy (~2006) Family History Father Hypertension Brother Cancer Blind Sister Colon cancer Mother No problems noted. Brother COPD (chronic obstructive pulmonary disease) Brother Liver disease Grandmother Colon cancer Social History household members: spouse Smoking Status: Former smoker Assessment & Plan Assessment & Plan narrative: 1. COPD exacerbation, present on admission and active. 2. Acute hypoxic respiratory failure, present on admission and active. 3. Parainfluenza URI, present on admission and active. 4. Hypertension, present on admission and stable. 5 Hypothyroidism, present on admission and stable. PLAN: -continue steroids and bronchodilators -azithromycin x 3 days -continue baseline hypertension and thyroid medications -wean oxygen as able. -likely discharge home tomorrow off O2, on oral prednisone taper Anticipate a 2+ midnight of hospital level care for COPD exacerbation with acute hypoxic respiratory failure. Full code is proxy decision maker. FELICIANO is 04/23. If breathing improved substantially, and she is able to come off from oxygen. PROFEE Charge codes Subsequent inpatient/observation care: [id number]
--- NOTE | 2024-04-22 14:57 | CM.DPNOTE ---
DCP Cont Reviewed chart. Patient discussed in multidisciplinary rounds. FELICIANO expected over the next 24-48hrs as long as patient's resp status improves. Patient's PCP is reportedly in the [place] system. Patient and her spouse have lived on their boat for the last 8 years. Plan remains discharge home w/spouse to their boat w/close outpatient follow up. CM team following clinical course closely in case any discharge needs or concerns arise. DANIELLE
[2024-04-22] MEDS: ALBUTEROL 2.5 MG/3 ML NEB (ADULT) INH (16:53)
[2024-04-22] MEDS: BUDESONIDE 0.5 MG/2 ML NEB INH (19:40)
[2024-04-22] MEDS: guaiFENesin ER 600 MG TAB PO (20:05)
[2024-04-22] MEDS: HYDROCODONE/ACET 5/325 TABLET 1 TAB PO (20:05)
[2024-04-22] MEDS: ATORVASTATIN 20 MG TABLET 40 MG PO (20:06)
[2024-04-22] MEDS: AMLODIPINE 5 MG TABLET PO (20:06)
[2024-04-23] VITALS (8 sets, daily range): BP systolic 134–165; BP diastolic 79–89; PULSE 84–108; RESP 16–24; TEMP 35.9–36.6; O2SAT 92–98
[2024-04-23] MEDS: LORazepam 1 MG TABLET PO ×3 (03:05→18:40)
[2024-04-23] MEDS: methylPREDNISolone 125 MG/2 ML VIAL 60 MG IV ×4 (03:05→21:31)
[2024-04-23] MEDS: LEVOTHYROXINE 125 MCG TABLET PO (06:58)
[2024-04-23] MEDS: BUDESONIDE 0.5 MG/2 ML NEB INH ×2 (07:33→19:46)
[2024-04-23] MEDS: ALBUTEROL/IPRATROPIUM 3 ML AMPUL INH ×3 (07:33→19:45)
[2024-04-23] MEDS: ASPIRIN EC 81 MG TABLET PO (08:15)
[2024-04-23] MEDS: ENOXAPARIN 40 MG/0.4 ML SYRINGE SUBCUT (08:16)
--- NOTE | 2024-04-23 10:58 | P.PN_ITS ---
Subjective Subjective Interval history: Admitted for COPD exacerbation, improving slowly. Subjective: She was feel better but still quite fatigued and does have intermittent coughing spells and dyspnea. She desaturates on 0 L of oxygen to 87%, maintains over 90% with 0.5-1 L. she was not use oxygen at home. She was followed by Pulmonary in [place]. Exam Vital Signs (past 8 hours): - 04/23/24 07:15 04/23/24 07:46 04/23/24 08:00 Temperature 97.3 F L Pulse Rate 95 H 95 H 108 H Respiratory Rate 20 18 Blood Pressure 142/87 H Pulse Oximetry 96 97 Oxygen Delivery Method Nasal Cannula Nasal Cannula Oxygen Flow Rate 3 3 3 Fraction of Inspired Oxygen 32 Fraction of Inspired Oxygen 32 SaO2/FiO2 Ratio 300 Oxygen Delivery Method Nasal Cannula Oxygen Flow Rate 3 Narrative Exam Narrative: NAD, chronically ill. Intermittent coughing spasms with a lot of prolonged expiratory wheezing. Lungs with diminished breath sounds, some expiratory wheezing, normal rate and effort. Heart is regular, distant. Abdomen is soft, nontender. No leg edema. Objective Labs 04/20/24 05:50 04/20/24 05:50 [facility] Medical History COPD (chronic obstructive pulmonary disease) Allergic rhinitis (~1969) Acquired hypothyroidism (~1989) Essential hypertension (~2009) Surgical History Anesthesia History of dental surgery (~02/11/20) S/P carpal tunnel release (~2011) S/P cholecystectomy (~2004) S/P hysterectomy (~2006) Family History Father Hypertension Brother Cancer Blind Sister Colon cancer Mother No problems noted. Brother COPD (chronic obstructive pulmonary disease) Brother Liver disease Grandmother Colon cancer Social History household members: spouse Smoking Status: Former smoker Assessment & Plan Assessment & Plan narrative: 1. COPD exacerbation, present on admission and active. 2. Acute hypoxic respiratory failure, present on admission and active. 3. Parainfluenza URI, present on admission and active. 4. Hypertension, present on admission and stable. 5 Hypothyroidism, present on admission and stable. PLAN: -continue steroids and bronchodilators -azithromycin x 3 days -continue baseline hypertension and thyroid medications -wean oxygen as able. She requires 1 more day of current treatments. The patient has persistent hypoxia and significant broncho reactive airways still. FELICIANO: 04/24 Time-Based Coding :: [TOTAL MINUTES] spent with patient and on the chart (including review of chart, obtaining history, exam, reviewing outside data, placing orders, documenting exam and treatment plan, and counseling patient) on [DATE].
--- NOTE | 2024-04-23 14:13 | CM.DPC ---
DCP Cont: Per MD, pt making progress and was able to wean from 3LO2 this morning to 1LO2 this afternoon and will continue to try to wean to room air and not yet stable for discharge yet today but possibly tomorrow if she can tolerate room air. FOUZIA Mak
[2024-04-23] MEDS: AMLODIPINE 5 MG TABLET PO (21:31)
[2024-04-23] MEDS: ATORVASTATIN 20 MG TABLET 40 MG PO (21:31)
[2024-04-24] VITALS (10 sets, daily range): BP systolic 135–164; BP diastolic 80–86; PULSE 70–117; RESP 18–20; TEMP 36.4–36.6; O2SAT 80–98
[2024-04-24] MEDS: methylPREDNISolone 125 MG/2 ML VIAL 60 MG IV ×4 (03:28→21:40)
[2024-04-24] MEDS: LEVOTHYROXINE 125 MCG TABLET PO (06:36)
--- NOTE | 2024-04-24 06:43 | PC.NURSE ---
Pt feeling better tonight. No wheezing throughout the night, no coughing. Pt was on 2 L of oxygen at the beginning of the shift, able to get off oxygen this am and sating in the low 90's while laying in bed.
--- NOTE | 2024-04-24 07:51 | PM.PN.1 ---
Subjective Subjective Interval history: Summary: Admitted for COPD exacerbation, improving slowly. Positive for parainfluenza on respiratory PCR. S: She was having very slow improvement. She desaturated when turned from 1-0 L yesterday at 87%. Today she maintains 92% but appears very fatigued. Her lungs are much more clear. It is her goal to try to return to her boat where she lives with her tomorrow, April 25. She has a nebulizer machine there. They understand that it is 50 50 that she might need home oxygen if she was having any desaturation issues and that this would likely be temporary. She did stop her inhalers for several months over the summer because she did not want a dependent them and that might have set her up from more severe exacerbation this fall. She needs to update her Pneumovax and her flu vaccine is going to do this as soon as her acute illnesses over. Exam Vital Signs (past 8 hours): - 04/24/24 02:00 04/24/24 03:37 04/24/24 06:42 Temperature 97.6 F Pulse Rate 80 Blood Pressure 164/86 H Pulse Oximetry 98 94 96 Oxygen Flow Rate 3 1.5 0 Fraction of Inspired Oxygen 28 SaO2/FiO2 Ratio 339 Oxygen Delivery Method Nasal Cannula Oxygen Flow Rate 0 Narrative Exam Narrative: NAD, alert and oriented. Fluent speech. She looks very worn out. Lungs: Decreased breath sounds and mild prolongation of expiration but overall much more clear today. Heart is regular, no murmur gallop or rub. Abdomen is soft, non distended. Extremities are free of edema. Objective Labs 04/20/24 05:50 04/20/24 05:50 COUNTS INCLUDE 234 BEDS AT THE [facility] Medical History COPD (chronic obstructive pulmonary disease) Allergic rhinitis (~1969) Acquired hypothyroidism (~1989) Essential hypertension (~2009) Surgical History Anesthesia History of dental surgery (~02/11/20) S/P carpal tunnel release (~2011) S/P cholecystectomy (~2004) S/P hysterectomy (~2006) Family History Father Hypertension Brother Cancer Blind Sister Colon cancer Mother No problems noted. Brother COPD (chronic obstructive pulmonary disease) Brother Liver disease Grandmother Colon cancer Social History household members: spouse Smoking Status: Former smoker Assessment & Plan Assessment & Plan narrative: 1. COPD exacerbation, present on admission and improving e. 2. Acute hypoxic respiratory failure, present on admission and active. 3. Parainfluenza URI, present on admission and active. 4. Hypertension, present on admission and stable. 5 Hypothyroidism, present on admission and stable. PLAN: PT/OT evaluations Anticipate discharge home with a 50% chance of knee and oxygen if she has exertional desaturations tomorrow. She lives in about with her . They are both in agreement with the general plan. -continue steroids and bronchodilators -azithromycin x 3 days (completed) -continue baseline hypertension and thyroid medications -wean oxygen as able. On 1 L, and maintain saturations of 92% on room air for 5 minutes at rest. Exertional saturations not tested today. She requires 1 more day of current treatments. still. FELICIANO: 04/25 Time-Based Coding :: [TOTAL MINUTES] spent with patient and on the chart (including review of chart, obtaining history, exam, reviewing outside data, placing orders, documenting exam and treatment plan, and counseling patient) on [DATE].
[2024-04-24] MEDS: ALBUTEROL/IPRATROPIUM 3 ML AMPUL INH ×3 (07:56→18:15)
[2024-04-24] MEDS: BUDESONIDE 0.5 MG/2 ML NEB INH ×2 (07:56→18:15)
[2024-04-24] MEDS: ENOXAPARIN 40 MG/0.4 ML SYRINGE SUBCUT (08:06)
[2024-04-24] MEDS: LORazepam 1 MG TABLET PO ×3 (08:06→18:53)
[2024-04-24] MEDS: ASPIRIN EC 81 MG TABLET PO (08:06)
--- NOTE | 2024-04-24 08:13 | PC.NURSE ---
Patient was on RA this morning, got up to use the bathroom with the help of her son. Desaturated to 80% on RA, placed back on 2L NC and sat back in bed, able to return to 93%. RT arrived with patient's breathing treatment. Patient asked for prn ativan for anxiety and help with breathing, she states she is upset about needing to use oxygen likely at home. Patient going to rest longer until breakfast arrives, son at bedside, call light within reach. Continue to monitor.
--- NOTE | 2024-04-24 11:35 | PT.IIE ---
Current Diagnoses Chronic obstructive pulmonary disease with (acute) exacerbation (04/19/24) Surgical History (Last Reviewed 04/23/24 @ 10:59 by Daniel James MD) Anesthesia History of dental surgery (~02/11/20) S/P carpal tunnel release (~2011) S/P cholecystectomy (~2004) S/P hysterectomy (~2006) Medical History (Last Reviewed 04/23/24 @ 10:59 by Daniel James MD) Acquired hypothyroidism (~1989) Allergic rhinitis (~1969) COPD (chronic obstructive pulmonary disease) Essential hypertension (~2009) Physical Therapy Inpatient Evaluation/Re-Eval M1 PT/OT-IP Prior Functional Status Start: 04/24/24 12:41 Freq: NEEDED Status: Active Protocol: Document 04/24/24 11:35 AB (Rec: 04/24/24 12:57 AB [id number]) Medical Review Prior Functional Status Medical History Reviewed Yes Communication able to make needs known Mobility and Gait pt stated that she was independent with all mobilities and ambulation without AD Social History Household Members spouse Living Arrangements Other Number of Stairs To Enter/Railing? [place] lives [place] a [place] Home Environment Standard Height Toilet,Walk in Shower,Built-In Shower Seat Home Equipment Grab Bars Near Toilet,Grab Bars In Shower Additional Social History Comment pt has rails to hold on to around the boat M2 PT-IP Current Condition Start: 04/24/24 12:41 Freq: NEEDED Status: Active Protocol: Document 04/24/24 11:35 AB (Rec: 04/24/24 12:57 AB [id number]) Physical Therapy Current Condition Current Condition Evaluation Date 04/24/24 Treatment Diagnosis COPD exacerbation; parainfluenza; difficulty in walking Onset Date 04/19/24 M3 PT-IP Subjective Start: 04/24/24 12:41 Freq: NEEDED Status: Active Protocol: Document 04/24/24 11:35 AB (Rec: 04/24/24 12:57 AB [id number]) Subjective Physical Therapy Visit Type Type Initial Evaluation Visit Start Time 11:35 Visit Stop Time 12:15 Number of ANALYTICAL SCIENTIST Visits 0 Physical Therapy Visit Comments Patient Comments agreeable to do PT M4 PT-IP Mobility and Gait Start: 04/24/24 12:41 Freq: NEEDED Status: Active Protocol: Document 04/24/24 11:35 AB (Rec: 04/24/24 12:57 AB [id number]) PT-Bed Mobility Assessment Supine to Sit Supine to Sit Independent PT-Transfer Assessment Sit to and From Stand Sit to and from Stand Standby Assistance,1 Person Assistance,Use of Upper Extremities Equipment Transfer Assistive Device None,Gait Belt,Front Wheeled Walker Orthotic/Prosthetic Devices or Brace: No Transfers Transfer Destination Toilet Transfer Technique ambulated Transfer Ability Level of Assist Contact Guard Assistance, Minimal Assistance,1 Person Assistance,Use of Upper Extremities Comments Mobility Comments pt supine in bed. pt's spouse and son in room with pt. obtained PLOF and home set up. BP: 140/78 O2 sat: 94% with 1 1/2L/min O2, DC: 108 -110. pt presents wtih (+)resting tremors. family stated that is is chronic but is more this time. completed supine to sit SBA. able to sit SBA. pt is impulsive and got up immediately upon sitting and stated that she has to use the toilet. pt ambulated towards the toilet without AD (+) LOB requiring min A for recovery. instructed pt to use FWW and ambulated rest of the way towards the toilet using a FWW CGA. pt completed sit to stand from the toilet SBA and ambulated towards the sink using FWW CGA. able to maintain standing balance SBA while completing handwashing. pt ambulated to the chair using FWW CGA. educated pt regarding safety and slowing down pt understood . ambulated again in room without AD SBA. continue to have unsteady gait with (+) slight LOB x 2. pt agreed to stay up on the chair. positioned pt o n the chair. call light and table placed within reach. O2 sat after ambulation: 93-94% Gait Assessment Gait Gait Assistance Required: Contact Guard Assist,Minimum Assistance Distance (Feet) 20 Able to Maintain Weight Bearing Status Yes During Gait Assistive Devices Assistive Device None,Gait Belt,Front Wheeled Walker Orthotic/Prosthetic Devices or Brace: No Gait Deviations General Gait Pattern Ataxic,Decreased Stride Length ,Decreased Feet Clearance,Step -to Gait Factors Limiting Gait Function Factors Limiting Gait Function Decreased Activity Tolerance, Decreased Strength,Difficulty Following Directions,Limited Range of Motion,Pain,Poor Balance,Poor Safety Awareness, Respiratory Distress PT-Balance Assessment Sitting Balance and Reactions Static Sitting Balance Ability Normal Dynamic Sitting Balance Ability Good Standing Balance and Reactions Static Standing Balance Ability Fair Dynamic Standing Balance Ability Fair Device Used without AD M5 PT-IP Objective Assessments Start: 04/24/24 12:41 Freq: NEEDED Status: Active Protocol: Document 04/24/24 11:35 AB (Rec: 04/24/24 12:57 AB [id number]) Orientation Orientation/Cognition Level of Alertness Alert Orientation Name,Place,Situation Language Function Ability No Deficits Noted Safety Awareness Decreased Safety Awareness Memory Description No Deficits Noted Gross Range of Motion Lower Extremity ROM Assessment Within Functional Limits Strength Lower Extremity Strength Assessment Within Functional Limits Coordination Assessment Gross Coordination Gross Coordination WNL Sensation Assessment Sensation Gross Sensation WNL Muscle Tone Muscle Tone WNL Yes M6 PT-IP Treatment Start: 04/24/24 12:41 Freq: NEEDED Status: Active Protocol: Document 04/24/24 11:35 AB (Rec: 04/24/24 12:57 AB [id number]) Physical Therapy Treatment Education Education Provided Safety M7 PT-IP Assessment and Plan Start: 04/24/24 12:41 Freq: NEEDED Status: Active Protocol: Document 04/24/24 11:35 AB (Rec: 04/24/24 12:57 AB [id number]) PT Summary Assessment and Plan Potential Rehabilitation Potential Fair Status of Condition at Evaluation Evolving Summary Impairments ROM,Strength,Balance, Coordination,Sensation,Tone, Cognition,Bed Mobility, Transfers,Gait,Activity Tolerance Assessment Summary pt is a 63 y/o F who is admitted fro COPD exacerbation and (+) parainfluenza. pt needing 1 1/2 L/min O2 and O2 sat maintained at 93-94% with activities. pt requiring CGA to min A with ambulation without AD and has (+) LOB requiring min A for safety. pt is impulsive. pt [facility] and spouse will be able to assist pt at home. will continue to assess progress. Goals Bed Mobility Goal Independent Transfer Goal Independent,Front Wheeled Walker Gait Goal Independent,Front Wheel Walker Gait Distance 200 Other Goals improve transfers and ambulation using LRAD/without AD mod I 300 ft up/down 3 steps B rails mod I Days to Meet Goals 10 Frequency of Treatment Frequency Of Treatment Once a Day Treatment Plan Physical Therapy Treatment Plan Bed Mobility Training,Transfer Training,Gait Training, Therapeutic Exercise,Balance Retraining,Discharge Planning, Hot or Cold Pack,Neuromuscular Re-ed,Coordination Retraining Precautions Other Precautions falls; O2 sat; droplet precautions Recommendations To Nursing Amount of Assist Needed 1 Person Assist Discharge Recommendations PT Discharge Recommendations Home with 06/12 Assist Available,Home Health Transportation Needs at Discharge Private Vehicle,Wheelchair/ Cabulance
--- NOTE | 2024-04-24 14:15 | OT.IP.EVAL ---
Current Diagnoses Chronic obstructive pulmonary disease with (acute) exacerbation (04/19/24) Past Medical History (Last Reviewed 04/23/24 @ 10:59 by Daniel James MD) Acquired hypothyroidism (~1989) Allergic rhinitis (~1969) COPD (chronic obstructive pulmonary disease) Essential hypertension (~2009) Surgical History (Last Reviewed 04/23/24 @ 10:59 by Daniel James MD) Anesthesia History of dental surgery (~02/11/20) S/P carpal tunnel release (~2011) S/P cholecystectomy (~2004) S/P hysterectomy (~2006) Occupational Therapy Inpatient Evaluation/Re-Eval M1 PT/OT-IP Prior Functional Status Start: 04/24/24 12:41 Freq: NEEDED Status: Active Protocol: Document 04/24/24 14:19 [facility] (Rec: 04/24/24 14:32 [facility] [id number]) Medical Review Prior Functional Status Medical History Reviewed Yes Communication able to make needs known Mobility and Gait pt stated that she was independent with all mobilities and ambulation without AD Activities of Daily Living and IADL's Completely independent with all needs. Social History Household Members spouse Living Arrangements Other Number of Stairs To Enter/Railing? pt lives [place] a [place] Home Environment Standard Height Toilet,Walk in Shower,Built-In Shower Seat Home Equipment Grab Bars Near Toilet,Grab Bars In Shower Additional Social History Comment pt has rails to hold on to around the boat M2 OT-IP Current Condition Start: 04/24/24 14:19 Freq: Status: Active Protocol: Document 04/24/24 14:19 [facility] (Rec: 04/24/24 14:32 [facility] [id number]) Occupational Therapy Current Condition Current Condition Evaluation Date 04/24/24 Treatment Diagnosis COPD exacerbation, parainfluenza Diagnosis Onset Date 04/19/24 M3 OT- IP Subjective and Pain Start: 04/24/24 14:19 Freq: Status: Active Protocol: Document 04/24/24 14:19 [facility] (Rec: 04/24/24 14:32 [facility] [id number]) OT- Subjective Occupational Therapy Visit Type Type Initial Evaluation Visit Start Time 13:40 Visit Stop Time 14:15 Occupational Therapy Visit Comments Patient Comments Pt agreed to get up to use the toilet. Patient/Caregiver Goals To go home. OT Pain Assessment Pain When Pain Assessed At Rest Pain Present Pain Present Denied Pain M4 OT- IP ADL's Start: 04/24/24 14:19 Freq: Status: Active Protocol: Document 04/24/24 14:19 [facility] (Rec: 04/24/24 14:32 [facility] [id number]) OT [id number] Comments OT Self-Feeding Comments NO issues anticipated. OT ADL-Grooming General Evaluation Areas Needing Assistance Combing/Brushing Hair Comments OT Grooming Comments Pt needing MODA for her hair as tangled and arms getting tired while trying to brush her long hair. OT ADL-Oral Care Comments Oral Care Comments Not performed. OT ADL-Dressing Comments OT Dressing Comments Pt able to manage her brief with SBA. OT ADL-Toileting General Evaluation Toileting Ability Standby Assistance Comments OT Toileting Comments SBA for set-up and O2 management needs. Suggested to wear pad at night. OT ADL-Bathing Comments OT Bathing Comments Pt states to try to shower later, suggested best to use get a shower chair or use the built in seat at home and with assist. M5 OT- IP IADL's Start: 04/24/24 14:19 Freq: Status: Active Protocol: Document 04/24/24 14:19 [facility] (Rec: 04/24/24 14:32 [facility] [id number]) OT-Instrumental Activities of Daily Living Home Safety Awareness Awareness of Need for Assistance at Home Good Awareness Home Safety Comments Pt has very supportive and son to assist with her needs. M6 OT- IP Functional Cognition Start: 04/24/24 14:19 Freq: Status: Active Protocol: Document 04/24/24 14:19 [facility] (Rec: 04/24/24 14:32 [facility] [id number]) Cognitive Factors Limiting Selfcare Function Cognitive Ability Level of Alertness Alert Patient Orientation Name,Age,Birthday,Month,Date, Year,Day of Week,Place, Situation Attention Span Ability Capable of Focused Attention, Capable of Sustained Attention Ability to Follow Commands Able to Follow One Step Commands Safety Awareness Underestimates Need for Assistance Cognitive Comments Cognitive Assessment Comments Pt can be a little impulsive at times. VC for cord management needs. Pt is very tearful and wanting to go home . Able to talk about energy conservation needs with pt. OT- Vision and Hearing OT- Hearing Assessment OT- Hearing Assessment WFL OT- Vision Assessment Visual Acuity WFL Occular Pursuits WFL Visual Convergence WFL M7 OT- IP Mobility and Balance Start: 04/24/24 14:19 Freq: Status: Active Protocol: Document 04/24/24 14:19 [facility] (Rec: 04/24/24 14:32 [facility] [id number]) OT- Bed Mobility Assessment Supine to Sit Supine to Sit Assist Standby Assistance Sit to Supine Sit to Supine Assist Standby Assistance OT-Transfer Assessment Sit to and From Stand Sit to and from Stand Standby Assistance Transfers Transfer Ability Standby Assistance Technique Transfer Destination Bed,Toilet Transfer Technique Stand Step Pivot Devices Transfer Assistive Devices Front Wheeled Walker Comments Mobility Comments Pt SBA with fww and vc to keep the FWW close to her. At times , pt wanting to take steps without it. OT- Balance Assessment Sitting Balance and Reactions Static Sitting Balance Ability Normal Dynamic Sitting Balance Ability Good Standing Balance and Reactions Static Standing Balance Ability Good Dynamic Standing Balance Ability Fair M8 OT- IP Objective Assessments Start: 04/24/24 14:19 Freq: Status: Active Protocol: Document 04/24/24 14:19 [facility] (Rec: 04/24/24 14:32 [facility] [id number]) OT Gross Range of Motion Upper Extremity Range of Motion Assessment Within Functional Limits OT Strength Upper Extremity Strength Assessment Within Functional Limits M9 OT- IP Assessment and Plan Start: 04/24/24 14:19 Freq: Status: Active Protocol: Document 04/24/24 14:19 [facility] (Rec: 04/24/24 14:32 [facility] [id number]) OT Summary Assessment and Plan Potential Rehabilitation Potential Excellent Analytic Complexity at Evaluation Moderate Summary OT Impairments Balance,Functional Mobility, Grooming,Dressing,Toileting, Bathing,Toilet Transfers, Shower Transfers,Activity Tolerance Progress Towards Goals Slow Progress due to Medical Issues,Slow Progress due to Activity Tolerance Assessment Summary Pt MOD complexity and main barriers are decreased activity tolerance and now on 1.5L O2 and from 88-94% when up on her feet. Pt has a very supportive family and looking to go home with 24/7 assist when medically stable. At this time pt would benefit from a FWW and shower chair. Goals Self-Feeding Goal Independent Grooming Goal Independent Dressing Goal Independent Toileting Goal Independent Bathing Goal Standby Assistance Toilet Transfer Goal Independent Shower Transfer Goal Standby Assistance Days to Meet Goals 7 Frequency of Treatment Other frequency 5x/week Treatment Plan OT Treatment Plan ADL Training,Patient/Family Education,Discharge Planning Discharge Recommendations OT Discharge Recommendations Home with 24/ Assist Available Home Equipment Needs shower chair, FWW Transportation Needs at Discharge Private Vehicle
--- NOTE | 2024-04-24 16:05 | CM.DPC ---
DCP Cont: Per MD and RN, pt was able to wean off oxygen this morning to room air and will confirm she can tolerate. Per PT/OT, pt somewhat impulsive but recommending home with spouse and r/o HH vs outpt PT. Plan: SW to follow in the AM to determine HH vs outpt PT pending pt's progress and plan of likely discharge tomorrow Wed if medically stable. FOUZIA Mak
--- NOTE | 2024-04-24 16:13 | DIET.CONS ---
Dietary Consultation Note Admission Date: 04/19/2024 21:00 Assessment: 63 y F admitted for SOB. RD screened for LOS. EMR reviewed. Avg PO intakes 60%. DFM reviewed for meal composition. No significant recent weight loss. BMI normal for age. No nutritional interventions needed at this time. Will continue to monitor po intakes. Ht: 160.02 cm Wt: 54.5 kg BMI: 21.2 UBW: 56.699 kg on 06/02/23 Last BM: 04/22/24 (04/22/24 16:00) MNA: 13 Amilcar Score: 20 Diet: 04/20/24 Breakfast General (Regular) Diet Diet Modifications: Nutrition Percent Meal Consumed 100% 04/24/24 09:06 Percent Meal Consumed 25% 04/23/24 12:46 Percent Meal Consumed 50% 04/23/24 08:33 Percent Meal Consumed 50% 04/22/24 18:00 Labs: RBC 4.76 X10^6/uL (4.0-5.2) 04/20/24 05:50 Hgb 13.9 g/dL (12.0-16.0) 04/20/24 05:50 Hct 42.3 % (36-46) 04/20/24 05:50 Creatinine 0.66 mg/dL (0.52-1.04) 04/20/24 05:50 Lactate 1.6 mmol/L (0.7-2.1) 04/19/24 17:48 NT-Pro-B Natriuret Pep 118 pg/mL (<125) 04/20/24 05:50 Electronically Signed by: Nicol Jenkins 04/24/24 16:13 Clinical Dietitian [address] [address]
[2024-04-24] MEDS: guaiFENesin ER 600 MG TAB PO (18:53)
--- NOTE | 2024-04-24 20:01 | PC.NURSE ---
Patient reports she had BM today and voided without difficulty (BM not visualized by this RN), patient's son and were assisting patient to bathroom today.
[2024-04-24] MEDS: AMLODIPINE 5 MG TABLET PO (21:11)
[2024-04-24] MEDS: ATORVASTATIN 20 MG TABLET 40 MG PO (21:12)
[2024-04-24] MEDS: SODIUM CHLORIDE 0.9% FLUSH 10 ML IV (21:41)
--- NOTE | 2024-04-24 23:50 | PC.NURSE ---
Patient sound asleep, SPO2 in 2 liters 96-97%. Decreased 02 down to 1 liter & SPO2 94%. Will monitor & continue plan of care.
[2024-04-25] VITALS (7 sets, daily range): BP systolic 121–146; BP diastolic 65–84; PULSE 92–118; RESP 16–28; TEMP 36.2–36.8; O2SAT 91–97
[2024-04-25] MEDS: methylPREDNISolone 125 MG/2 ML VIAL 60 MG IV ×4 (03:24→21:45)
[2024-04-25] MEDS: SODIUM CHLORIDE 0.9% FLUSH 10 ML IV ×3 (03:25→21:45)
[2024-04-25] MEDS: LEVOTHYROXINE 125 MCG TABLET PO (06:15)
[2024-04-25] MEDS: LORazepam 1 MG TABLET PO ×4 (08:17→21:45)
[2024-04-25] MEDS: ASPIRIN EC 81 MG TABLET PO (08:17)
[2024-04-25] MEDS: ENOXAPARIN 40 MG/0.4 ML SYRINGE SUBCUT (08:17)
[2024-04-25] MEDS: ALBUTEROL 2.5 MG/3 ML NEB (ADULT) INH (09:14)
[2024-04-25] MEDS: BUDESONIDE 0.5 MG/2 ML NEB INH ×2 (09:15→19:10)
--- NOTE | 2024-04-25 11:52 | PT-IP ANOTE ---
Pt was found asleep in bed, was left to rest. PT will attempt to see in afternoon.
--- NOTE | 2024-04-25 13:14 | CM.DPNOTE ---
DCP Cont According to Dr Pineda, RT is assessing for Home O2. Patient is likely to discharge today if this can be arranged. Patient does not need HH services. No needs from this CM team identified. Plan: Discharge home, back to their boat docked at [facility], likely w/home O2. DANIELLE
[2024-04-25] MEDS: ALBUTEROL/IPRATROPIUM 3 ML AMPUL INH ×2 (13:45→19:10)
--- NOTE | 2024-04-25 15:10 | PT.IPTN ---
Current Diagnoses Chronic obstructive pulmonary disease with (acute) exacerbation (04/19/24) Physical Therapy Treatment Note M2 PT-IP Current Condition Start: 04/24/24 12:41 Freq: NEEDED Status: Active Protocol: Document 04/24/24 11:35 AB (Rec: 04/24/24 12:57 AB [id number]) Physical Therapy Current Condition Current Condition Evaluation Date 04/24/24 Treatment Diagnosis COPD exacerbation; parainfluenza; difficulty in walking Onset Date 04/19/24 M3 PT-IP Subjective Start: 04/24/24 12:41 Freq: NEEDED Status: Active Protocol: Document 04/25/24 15:10 AB (Rec: 04/25/24 15:51 AB [id number]) Subjective Physical Therapy Visit Type Type Treatment Note Visit Start Time 15:10 Visit Stop Time 15:30 Number of MATERIAL DISPOSITION INSPECTOR Visits 0 Physical Therapy Visit Comments Patient Comments agreeable to do PT M4 PT-IP Mobility and Gait Start: 04/24/24 12:41 Freq: NEEDED Status: Active Protocol: Document 04/25/24 15:10 AB (Rec: 04/25/24 15:51 AB [id number]) PT-Bed Mobility Assessment Supine to Sit Supine to Sit Independent Sit to Supine Sit to Supine Independent PT-Transfer Assessment Sit to and From Stand Sit to and from Stand Contact Guard Assistance,1 Person Assistance,Use of Upper Extremities Equipment Transfer Assistive Device None,Gait Belt,Front Wheeled Walker Orthotic/Prosthetic Devices or Brace: No Comments Mobility Comments pt supine in bed and agreeable to do PT. pt with nasal cannula on the side and not on pt. pt stated that RT took it off and turned off O2. o2 sat checked: 91-93%. pt completed supine to sit mod I. able to sit on EOB SBA. completed sit to stand CGA. pt is impulsive and got up even before PT was able to put safety belt on pt. pt is unsteady and instructed to sit back on EOB. put safety belt on pt. pt completed sit to stand CGA and ambulated in room using FWW ~ 40 ft x 2. seated rest breaks in between. O2 sat maintained: 89-94% after ambulation. occasional cues for PLB. pt completed up/down step stool using FWW for support CGA and cues. pt repeated x 2 sets. pt has 3 steps to enter the house with B rails. spouse can assist pt. assessed ambulation without AD and pt completed in room ~ 30 ft min A and cues for steadiness. pt unable to walk a straight path. informed spouse regarding level of assistance and stated that he will be with pt to assist. pt went back to bed. mod I with sit to supine. positioned pt in bed. call light and table placed within reach. informed nurse regarding O2 sat and pt informed that RT turned off pt's O2. Gait Assessment Gait Gait Assistance Required: Contact Guard Assist,Minimum Assistance Distance (Feet) 40 Able to Maintain Weight Bearing Status Yes During Gait Assistive Devices Assistive Device None,Gait Belt,Front Wheeled Walker Orthotic/Prosthetic Devices or Brace: No Gait Deviations General Gait Pattern Ataxic,Decreased Stride Length ,Decreased Feet Clearance Factors Limiting Gait Function Factors Limiting Gait Function Decreased Activity Tolerance, Decreased Strength,Limited Range of Motion,Poor Balance, Poor Safety Awareness M5 PT-IP Objective Assessments Start: 04/24/24 12:41 Freq: NEEDED Status: Active Protocol: Document 04/24/24 11:35 AB (Rec: 04/24/24 12:57 AB [id number]) Orientation Orientation/Cognition Level of Alertness Alert Orientation Name,Place,Situation Language Function Ability No Deficits Noted Safety Awareness Decreased Safety Awareness Memory Description No Deficits Noted Gross Range of Motion Lower Extremity ROM Assessment Within Functional Limits Strength Lower Extremity Strength Assessment Within Functional Limits Coordination Assessment Gross Coordination Gross Coordination WNL Sensation Assessment Sensation Gross Sensation WNL Muscle Tone Muscle Tone WNL Yes M6 PT-IP Treatment Start: 04/24/24 12:41 Freq: NEEDED Status: Active Protocol: Document 04/25/24 15:10 AB (Rec: 04/25/24 15:51 AB [id number]) Physical Therapy Treatment Education Education Provided Safety M7 PT-IP Assessment and Plan Start: 04/24/24 12:41 Freq: NEEDED Status: Active Protocol: Document 04/25/24 15:10 AB (Rec: 04/25/24 15:51 AB [id number]) PT Summary Assessment and Plan Potential Rehabilitation Potential Fair Summary Impairments Pain,ROM,Strength,Balance, Coordination,Sensation,Tone, Cognition,Bed Mobility, Transfers,Gait,Activity Tolerance Progress Towards Goals Slow Progress due to Medical Issues,Slow Progress due to Activity Tolerance Assessment Summary pt improving slowly with mobility. pt needing CGA for ambulation using fWW and min A without AD. pt continues to be unsteady with ambulation. pt plans to go home and spouse will be able to provide pt assistance. Goals Bed Mobility Goal Independent Transfer Goal Independent,Front Wheeled Walker Gait Goal Independent,Front Wheel Walker Gait Distance 200 Other Goals improve transfers and ambulation using LRAD/without AD mod I 300 ft up/down 3 steps B rails mod I Days to Meet Goals 10 Frequency of Treatment Frequency Of Treatment Once a Day Treatment Plan Physical Therapy Treatment Plan Bed Mobility Training,Transfer Training,Gait Training, Therapeutic Exercise,Balance Retraining,Discharge Planning, Hot or Cold Pack,Neuromuscular Re-ed,Coordination Retraining Precautions Other Precautions falls; O2 sat; droplet precautions Recommendations To Nursing Amount of Assist Needed 1 Person Assist Discharge Recommendations PT Discharge Recommendations Home with 06/12 Assist Available,Home Health Transportation Needs at Discharge Private Vehicle,Wheelchair/ Cabulance
--- NOTE | 2024-04-25 17:42 | P.PN_ITS ---
Subjective Subjective Interval history: Summary: Admitted for COPD exacerbation, improving slowly. Positive for parainfluenza on respiratory PCR. S: She was having very slow improvement. Desat today with shower to upper 80s, still needing 0.5 to 1 L. Patient is very much wanting to go home. She is tachycardic today as well She needs to update her Pneumovax and her flu vaccine is going to do this as soon as her acute illnesses over. Exam Vital Signs (past 8 hours): - 04/25/24 10:35 04/25/24 12:45 04/25/24 13:48 Temperature 98.3 F Pulse Rate 118 H 104 H 114 H Respiratory Rate 20 17 24 Blood Pressure 121/65 146/84 H Pulse Oximetry 91 93 93 Oxygen Delivery Method Room Air Oxygen Flow Rate 2 Fraction of Inspired Oxygen 28 SaO2/FiO2 Ratio 346 Oxygen Delivery Method Room Air Oxygen Flow Rate 2 Narrative Exam Narrative: NAD, alert and oriented. Fluent speech. She looks very worn out. Lungs: Decreased breath sounds and mild prolongation of expiration but overall much more clear today. Heart is regular, no murmur gallop or rub. Abdomen is soft, non distended. Extremities are free of edema. Objective Labs 04/20/24 05:50 04/20/24 05:50 [facility] [place] Medical History COPD (chronic obstructive pulmonary disease) Allergic rhinitis (~1969) Acquired hypothyroidism (~1989) Essential hypertension (~2009) Surgical History Anesthesia History of dental surgery (~02/11/20) S/P carpal tunnel release (~2011) S/P cholecystectomy (~2004) S/P hysterectomy (~2006) Family History Father Hypertension Brother Cancer Blind Sister Colon cancer Mother No problems noted. Brother COPD (chronic obstructive pulmonary disease) Brother Liver disease Grandmother Colon cancer Social History household members: spouse Smoking Status: Former smoker Assessment & Plan Assessment & Plan narrative: 1. COPD exacerbation, present on admission and improving e. 2. Acute hypoxic respiratory failure, present on admission and active. 3. Parainfluenza URI, present on admission and active. 4. Hypertension, present on admission and stable. 5 Hypothyroidism, present on admission and stable. PLAN: PT/OT evaluations Anticipate discharge home with a 50% chance of knee and oxygen if she has exertional desaturations tomorrow. She lives in about with her . They are both in agreement with the general plan. -continue steroids and bronchodilators -azithromycin x 3 days (completed) -continue baseline hypertension and thyroid medications -wean oxygen as able. will order home O2 eval today. She may be able to come off before tomorrow but will set up plan for home O2 now. -with persistent tachycardia, hypoxia rule out PE with CTA today. FELICIANO: likely 12/12 to home with home o2 Time-Based Coding :: [TOTAL MINUTES] spent with patient and on the chart (including review of chart, obtaining history, exam, reviewing outside data, placing orders, documenting exam and treatment plan, and counseling patient) on [DATE].
--- NOTE | 2024-04-25 17:43 | DI.CT.S_ITS ---
PROCEDURE: CT ANGIO CHEST PE PROTOCOL INDICATIONS: hypoxia, tachycardia r/o PE TECHNIQUE: After the administration of intravenous contrast, 2 mm thick sections acquired from the pulmonary apices to the posterior costophrenic angles. 3-dimensional maximum intensity projection (MIP) coronal and sagittal reformats were then acquired through the thorax. For radiation dose reduction, the following was used: automated exposure control, adjustment of mA and/or kV according to patient size. COMPARISON: None. FINDINGS: Image quality: Diagnostic. Pulmonary arteries: Pulmonary arteries dilated measuring 3.4 cm. No intraluminal filling defects to suggest central pulmonary embolism. Lower Neck: No enlarged lymph nodes. Thyroid: No thyroid nodules which require sonographic follow up, per consensus guidelines. Axillae: No enlarged lymph nodes. Chest Wall: Unremarkable. Bones: Unremarkable. Lungs and Pleura: No pneumothorax or pleural effusions. Biapical pleuroparenchymal scarring. Mild centrilobular emphysematous changes. Mild tree-in-bud nodularity in the left lower lobe. Heart: Heart size is normal. No pericardial effusion. Thoracic Vessels: No aortic aneurysm. Atherosclerotic vascular calcifications. Mediastinum and Margo: No enlarged lymph nodes. Esophagus: No wall thickening. No hiatal hernia. Upper Abdomen: Cholecystectomy. Visualized upper abdomen solid organs and bowel loops appear normal. IMPRESSION: No pulmonary embolus. Mild tree-in-bud nodularity in the left lower lobe, may be infectious in etiology. The lungs otherwise appear clear. Dilated main pulmonary artery, suggestive of pulmonary hypertension. Dictated by: Praneeth Dietz M.D. on 04/25/2024 at 18:15 Approved by: Praneteh Dietz M.D. on 04/25/2024 at 18:21
[2024-04-25] MEDS: SENNOSIDES 8.6 MG TABLET 17.2 MG PO (20:00)
[2024-04-25] MEDS: guaiFENesin ER 600 MG TAB PO (20:00)
[2024-04-25] MEDS: ACETAMINOPHEN 325 MG TABLET 650 MG PO (20:00)
[2024-04-25] MEDS: ATORVASTATIN 20 MG TABLET 40 MG PO (20:00)
[2024-04-25] MEDS: AMLODIPINE 5 MG TABLET PO (20:00)
[2024-04-26] VITALS: BP 149/78; PULSE 75; RESP 18; TEMP 36.4; O2SAT 90
[2024-04-26] MEDS: methylPREDNISolone 125 MG/2 ML VIAL 60 MG IV ×2 (04:10→08:34)
[2024-04-26 05:55] LABS: Add Manual Diff / Slide Review NO; Basophils Absolute Auto 0 /uL (0-100); Basophils Percent Auto 0.3 % (0-2); Eosinophils Absolute Auto 0 /uL (0-450); Hematocrit 41.2 % (36-46); Hemoglobin 13.4 g/dL (12.0-16.0); Lymphocytes Absolute Auto 1200 /uL (1100-4500); Lymphocytes Percent Auto 9.1 % (25-40); Mean Corpuscular HGB Conc 32.6 % (30-36); Mean Corpuscular Hemoglobin 28.9 PG (26-34); Mean Corpuscular Volume 88.7 fL (80-100); Monocytes Absolute Auto 700 /uL (0-900); Monocytes Percent Auto 5.1 % (3-14); Neutrophils Absolute Auto 11500 /uL (1500-7000); Neutrophils Percent Auto 85.5 % (50-75); Platelet Count 301 X10^3/uL (150-400); Red Blood Cell Count 4.64 X10^6/uL (4.0-5.2); Red Cell Distribution Width 13.5 % (11.6-14.8); White Blood Cell Count 13.5 X10^3/uL (4.5-11.0)
[2024-04-26 06:00] VITALS: BP 145/95; PULSE 94; RESP 18; TEMP 35.9; O2SAT 90
[2024-04-26 06:16] LABS: Blood Urea Nitrogen 30 mg/dL (7-17); Calcium 8.5 mg/dL (8.4-10.2); Carbon Dioxide 33 mmol/L (22-32); Chloride 101 mmol/L (98-107); Estimated Glomerular Filt Rate > 60 mL/min (>60); Glucose 106 mg/dL (80-110); HEMOLYSIS < 15 (0-50); Sodium 136 mmol/L (137-145)
[2024-04-26] MEDS: LEVOTHYROXINE 125 MCG TABLET PO (06:48)
[2024-04-26] MEDS: LORazepam 1 MG TABLET PO (07:03)
--- NOTE | 2024-04-26 07:32 | PC.NURSE ---
Pt wakes up very anxious and tearful asking to be put back on oxygen. Upon assessment, her O2 reads 90-94% on RA. Pt encouraged to call and talk with her spouse, room door is left open, and PRN ativan given (see MAR) Pt responds well to reassurance and education, states she has a pulse oximeter at home & that this will help her feel less anxious at home and becomes visibly less agitated.
[2024-04-26] MEDS: ENOXAPARIN 40 MG/0.4 ML SYRINGE SUBCUT (08:32)
[2024-04-26] MEDS: ASPIRIN EC 81 MG TABLET PO (08:32)
[2024-04-26] MEDS: SODIUM CHLORIDE 0.9% FLUSH 10 ML IV (08:34)
[2024-04-26 09:02] VITALS: PULSE 105; RESP 20; O2SAT 92
[2024-04-26] MEDS: ALBUTEROL/IPRATROPIUM 3 ML AMPUL INH (09:02)
[2024-04-26] MEDS: BUDESONIDE 0.5 MG/2 ML NEB INH (09:02)
[2024-04-26 10:13] VITALS: BP 154/86; PULSE 84; RESP 23; TEMP 36; O2SAT 97
--- NOTE | 2024-04-26 10:41 | PM.DS.1 ---
History of Present Illness History of Present Illness Date Patient Seen: 04/26/24 Time Patient Seen: 10:46 Chief complaint: SOB, low oxygen Narrative: Per admitting provider, The pt is a 63 yo who reports that she started having congestions, SOB, cough that was productive of cloudy sputum about 2 weeks ago. Since the onset her dyspnea has gotten worse,to the point she is SOB with small distances, in the Er her SaO2 was 85% on RA, she is not normally on oxygen. She quit smoking 2 years ago but was a life long smoker before then. There has been no fevers, chills, hemoptysis, N/V, or chronic cough. She does live on a boat and has noticed some mold that she blames her symptoms on . Discharge Providers Provider Date of admission: 04/19/24 21:00 Discharge Date: 04/26/24 Primary care physician: Solo Raymond MD Consults: 04/24/24 07:47 Consult to Occupational Therapy Evaluate & Treat Comment: Physician Instructions: Evaluate and treat Consult to Physical Therapy Evaluate & Treat Comment: Physician Instructions: Evaluate and Treat Discharge provider: Michael Pineda DO Summary Hospital Course Discharge Diagnosis: 1. COPD exacerbation, present on admission and improving e. 2. Acute hypoxic respiratory failure, present on admission and active. 3. Parainfluenza URI, present on admission and active. 4. Hypertension, present on admission and stable. 5 Hypothyroidism, present on admission and stable. Hospital Course: This is a 63-year-old female with a past medical history of hypertension, hypothyroidism, and COPD who was admitted with acute hypoxic respiratory failure in the setting of parainfluenza upper respiratory infection, and COPD exacerbation. She was slow to improve with steroids and symptomatic treatment, but after a few days she was able to be weaned from supplemental oxygen, maintaining O2 saturations above 90% at rest and with activity. She was discharged home with another 6 days of steroid taper. She would like to establish with a new PCP, but recommend follow up with pulmonology after discharge for reassessment. Time Spent with Patient Time spent: Greater than 30 minutes Exam Vital Signs (past 8 hours): - 04/26/24 06:00 04/26/24 09:02 04/26/24 10:13 Temperature 96.7 F L 96.8 F L Pulse Rate 94 H 105 H 84 Respiratory Rate 18 20 23 Blood Pressure 145/95 H 154/86 H Pulse Oximetry 90 L 92 97 Oxygen Delivery Method Room Air Oxygen Flow Rate 0 0 Fraction of Inspired Oxygen 28 SaO2/FiO2 Ratio 346 Oxygen Delivery Method Room Air Oxygen Flow Rate 0 Narrative Exam Narrative: NAD, alert and oriented. Fluent speech. She looks very worn out. Lungs: Decreased breath sounds and mild prolongation of expiration but overall much more clear today. Heart is regular, no murmur gallop or rub. Abdomen is soft, non distended. Extremities are free of edema. Objective Labs 04/26/24 05:00 04/26/24 05:00 Labs: Laboratory Results - last 24 hr 04/26/24 05:00 WBC 13.5 H RBC 4.64 Hgb 13.4 Hct 41.2 MCV 88.7 MCH 28.9 MCHC 32.6 RDW 13.5 Plt Count 301 Neut % (Auto) 85.5 H Lymph % (Auto) 9.1 L [place] % (Auto) 5.1 Eos % (Auto) 0.0 L Baso % (Auto) 0.3 Neut # (Auto) 37452 H Lymph # (Auto) 1200 [place] # (Auto) 700 Eos # (Auto) 0 Baso # (Auto) 0 Sodium 136 L Potassium 4.0 Chloride 101 Carbon Dioxide 33 H BUN 30 H Creatinine 0.60 Estimated GFR > 60 BUN/Creatinine Ratio 50.0 H Glucose 106 Calcium 8.5 PFSH Medical History COPD (chronic obstructive pulmonary disease) Allergic rhinitis (~1969) Acquired hypothyroidism (~1989) Essential hypertension (~2009) Surgical History Anesthesia History of dental surgery (~02/11/20) S/P carpal tunnel release (~2011) S/P cholecystectomy (~2004) S/P hysterectomy (~2006) Family History Father Hypertension Brother Cancer Blind Sister Colon cancer Mother No problems noted. Brother COPD (chronic obstructive pulmonary disease) Brother Liver disease Grandmother Colon cancer Social History household members: spouse Smoking Status: Former smoker Discharge Plan Discharge Plan Patient Disposition: Home Health Service Provider Discharge Comment: You were admitted to the hospital with shortness of breath and low oxygen. This was due to a COPD exacerbation and viral infection. Continue steroid taper at home for the next 6 days as prescribed. Lorazepam short term prescription was also sent. No other changes to your home medications are recommended. Please try to see your PCP or a new one when able, and please call the pulmonology office as well to try to get a follow up after this exacerbation and almost needing to go home on oxygen. Discharge orders & Medications Prescriptions: New lorazepam 1 mg Tablet 1 mg PO Q4HR PRN (Reason: Anxiety) 7 Days Qty: 40 0RF prednisone 20 mg tablet See Rx Instructions .ROUTE .COMPLEX 6 Days Qty: 9 0RF Rx Instructions: Take 40 mg daily for 3 days, then 20 mg daily for 3 days then stop Continued albuterol sulfate [ProAir HFA] 90 mcg/actuation HFA aerosol inhaler 2 puff INHALATION .PRN PRN (Reason: Allergic Reaction) Patient Comments: 2+ times/day while ill, typically only when sick amlodipine 5 mg tablet 5 mg PO DAILY atorvastatin 40 mg tablet 40 mg PO DAILY levothyroxine 125 mcg capsule 125 mcg PO DAILY aspirin 81 mg tablet,delayed release (DR/EC) 81 mg PO DAILY Follow up/Referrals: Solo Raymond MD [Primary Care Provider] - Diet/Activity/Treatments Diet: Diet as Tolerated and Regular Activity: As tolerated no restrictions Visit Report/Discharge Packet Stand Alone Forms: Patient Portal/API, Stroke Signs & Symptoms Discharge Data Primary Care Provider: Solo Raymond
--- NOTE | 2024-04-26 11:19 | OT.IPNOTE ---
Pt now off of O2 and looking to go home. Pt and states have more questions for OT needs and aware to take her time.
--- NOTE | 2024-04-26 13:40 | CM.DPNOTE ---
DC Note Discharge home w/sp, back to their boat. Patient is weaned off of O2. No needs from this CM team identified. DANIELLE
== END 2024-04-26 12:21 | disposition home or self-care (01) | DRG 140 ==
LOC: ED 17:58 → AC 21:00
PROVIDERS: Emergency Medicine; Internal Medicine; Admitting Provider Internal Medicine; Emergency Provider Emergency Medicine; PCP Internal Medicine; Referring Provider Emergency Medicine; Visit Provider Internal Medicine
DX: J44.1 Chronic obstructive pulmonary disease with (acute) exacerbation (principal); J96.01 Acute respiratory failure with hypoxia; I10 Essential (primary) hypertension; E03.9 Hypothyroidism, unspecified; J06.9 Acute upper respiratory infection, unspecified; B97.89 Other viral agents as the cause of diseases classified elsewhere; Z87.891 Personal history of nicotine dependence; Z59.19 Other inadequate housing
CPT/HCPCS: 36415; 71045; 71275; 80048; 80053; 81003; 83605; 83690; 83880; 84145; 84484; 85025; 85610; 85730; 87040; 87633; 93005; 93010; 94618; 94640; 94668; 94760; 96365; 96375; 97116; 97162; 97166; 97530; 99284; 99285; J1650; J2060; J2919; J3475; J7613; Q9967